=== PATIENT | male | born 1965 | race Caucasian/White ===

== ENCOUNTER → 2016-03-14 | Outpatient (CLI) | payer OTHER ==
[~2016-03-14] MED LIST: ASPI81TA85 PO; CLIN300C2 PO; GEMF600T PO; INSUHUMDS SC; INSULANT SC; LOSA100T36 PO; METF1000 PO; METO50TA2 PO; OMEP20CA3 PO; PERC5TAB6 PO; SIMV40TA2 PO; XALA0.002 OU
[2016-03-14 13:55] LABS: BASO % 0.8 % (0.0-1.0); EOS # 0.3 K/mm3 (0.0-0.50); EOS % 6.5 % (0.0-3.0); LARGE UNSTAINED CELL # 0.2 K/mm3 (0.0-0.4); LARGE UNSTAINED CELL % 4.6 % (0.0-4.0); LYMPH # 1.2 K/mm3 (1.5-4.5); LYMPH % 29.6 % (24.0-44.0); MEAN CORPUSCULAR HEMOGLOBIN 30.7 pg (27.0-33.0); MEAN CORPUSCULAR VOLUME 90.4 fl (80.0-96.0); MONO # 0.5 K/mm3 (0.0-0.8); MONO % 12.7 % (0.0-5.0); NEUTROPHILS # 1.9 K/mm3 (1.8-7.7); NEUTROPHILS % 45.8 % (36.0-66.0); PLATELET COUNT, AUTOMATED 306 k/mm3 (150-450); RED CELL DISTRIBUTION WIDTH 13.1 % (11.5-14.5); WHITE BLOOD COUNT 4.1 K/mm3 (4.0-10.0)
[2016-03-14 14:29] LABS: ALBUMIN 3.6 GM/DL (3.2-5.2); ALT/SGPT 21 U/L (12-78); BLOOD UREA NITROGEN 19 MG/DL (7-18); GLOMERULAR FILTRATION RATE > 60.0 (>56)
== END ==
LOC: M LAB 12:38
PROVIDERS: ATTEND Internal Medicine Rheumatology
DX: Z79.899 Other long term (current) drug therapy (principal); N18.3 Chronic kidney disease, stage 3 (moderate); M05.79 Rheumatoid arthritis with rheumatoid factor of multiple sites without organ or systems involvement

== ENCOUNTER → 2016-04-04 | Outpatient (CLI) | payer OTHER ==
--- NOTE | 2016-04-05 01:54 | REP ---
Clinical: Chest pain. Technique: PA and lateral. Comparison: 02/13/2016. Findings: Subtle bibasilar atelectasis and possible small right pleural reaction cannot be excluded. Correlation is recommended. Mediastinum and cardiac silhouette are within normal limits and stable. No pneumothorax. Skeletal structures intact. Impression: Cannot exclude subtle bibasilar atelectasis and small right pleural reaction. Signed by Jeison Rose MD 04/05/2016 01:46 A
== END ==
LOC: M RAD 10:44
PROVIDERS: ATTEND Internal Medicine Rheumatology
DX: R07.9 Chest pain, unspecified (principal)

== ENCOUNTER → 2016-04-18 | Outpatient (CLI) | payer OTHER ==
--- NOTE | 2016-04-18 07:47 | REP ---
Clinical: Chest pain. History of chronic obstructive pulmonary disease. Comparison: 04/04/2016. Findings: The mediastinum and cardiac silhouette are within normal limits and stable. Lung quintanilla demonstrate chronic stable changes without acute consolidation, effusion, or pneumothorax. Skeletal structures intact. Impression: Chronic stable changes. If the patient remains symptomatic consider chest CT for further investigation. Signed by Jeison Rose MD 04/18/2016 07:38 A
== END ==
LOC: M RAD 06:58
PROVIDERS: ATTEND Physician Assistant Medical
DX: J44.9 Chronic obstructive pulmonary disease, unspecified (principal)

== ENCOUNTER → 2016-04-18 | Outpatient (CLI) | payer OTHER ==
[2016-04-18 07:43] LABS: BASO % 0.7 % (0.0-1.0); EOS # 0.3 K/mm3 (0.0-0.50); EOS % 7.7 % (0.0-3.0); LARGE UNSTAINED CELL # 0.2 K/mm3 (0.0-0.4); LARGE UNSTAINED CELL % 4.4 % (0.0-4.0); LYMPH # 1.4 K/mm3 (1.5-4.5); LYMPH % 33.7 % (24.0-44.0); MEAN CORPUSCULAR HEMOGLOBIN 31.1 pg (27.0-33.0); MEAN CORPUSCULAR HGB CONC 34.4 g/dl (32.0-36.5); MEAN CORPUSCULAR VOLUME 90.6 fl (80.0-96.0); MONO # 0.5 K/mm3 (0.0-0.8); MONO % 11.2 % (0.0-5.0); NEUTROPHILS # 1.7 K/mm3 (1.8-7.7); NEUTROPHILS % 42.2 % (36.0-66.0); PLATELET COUNT, AUTOMATED 266 k/mm3 (150-450); RED CELL DISTRIBUTION WIDTH 12.9 % (11.5-14.5); WHITE BLOOD COUNT 4.1 K/mm3 (4.0-10.0)
[2016-04-18 08:15] LABS: ALBUMIN 3.5 GM/DL (3.2-5.2); ALT/SGPT 22 U/L (12-78); BLOOD UREA NITROGEN 25 MG/DL (7-18); CREATININE FOR GFR 1.35 MG/DL (0.70-1.30); GLOMERULAR FILTRATION RATE 59.1 (>56)
[2016-04-18 08:39] LABS: ERYTHROCYTE SEDIMENTATION RATE 12 mm/hr (0-20)
== END ==
LOC: M LAB 06:53
PROVIDERS: ATTEND Internal Medicine Rheumatology
DX: Z79.899 Other long term (current) drug therapy (principal); M05.79 Rheumatoid arthritis with rheumatoid factor of multiple sites without organ or systems involvement

== ENCOUNTER → 2016-05-15 | Outpatient (CLI) | payer OTHER ==
[2016-05-15 14:56] LABS: BASO % 0.7 % (0.0-1.0); EOS # 0.2 K/mm3 (0.0-0.50); EOS % 5.1 % (0.0-3.0); LARGE UNSTAINED CELL # 0.1 K/mm3 (0.0-0.4); LARGE UNSTAINED CELL % 2.2 % (0.0-4.0); LYMPH # 1.4 K/mm3 (1.5-4.5); LYMPH % 36.3 % (24.0-44.0); MEAN CORPUSCULAR HGB CONC 35.1 g/dl (32.0-36.5); MEAN CORPUSCULAR VOLUME 91.3 fl (80.0-96.0); MONO # 0.4 K/mm3 (0.0-0.8); MONO % 11.9 % (0.0-5.0); NEUTROPHILS # 1.6 K/mm3 (1.8-7.7); NEUTROPHILS % 43.9 % (36.0-66.0); PLATELET COUNT, AUTOMATED 237 k/mm3 (150-450); RED CELL DISTRIBUTION WIDTH 13.1 % (11.5-14.5); WHITE BLOOD COUNT 3.7 K/mm3 (4.0-10.0)
[2016-05-15 15:13] LABS: ALBUMIN 3.8 GM/DL (3.2-5.2); ALT/SGPT 25 U/L (12-78); BLOOD UREA NITROGEN 23 MG/DL (7-18); GLOMERULAR FILTRATION RATE 52.3 (>56)
[2016-05-15 15:16] LABS: ERYTHROCYTE SEDIMENTATION RATE 11 mm/hr (0-20)
== END ==
LOC: M LAB 14:27
PROVIDERS: ATTEND Internal Medicine Rheumatology
DX: N18.3 Chronic kidney disease, stage 3 (moderate) (principal)

== ENCOUNTER → 2016-06-21 | Outpatient (CLI) | payer OTHER ==
[2016-06-21 07:44] LABS: BASO % 0.6 % (0.0-1.0); EOS # 0.2 K/mm3 (0.0-0.50); EOS % 5.4 % (0.0-3.0); LYMPH # 1.1 K/mm3 (1.5-4.5); LYMPH % 32.8 % (24.0-44.0); MEAN CORPUSCULAR HEMOGLOBIN 31.1 pg (27.0-33.0); MEAN CORPUSCULAR HGB CONC 34.5 g/dl (32.0-36.5); MONO # 0.4 K/mm3 (0.0-0.8); MONO % 11.7 % (0.0-5.0); NEUTROPHILS # 1.6 K/mm3 (1.8-7.7); NEUTROPHILS % 46.5 % (36.0-66.0); RED CELL DISTRIBUTION WIDTH 13.3 % (11.5-14.5); WHITE BLOOD COUNT 3.4 K/mm3 (4.0-10.0)
[2016-06-21 08:19] LABS: ALBUMIN 3.4 GM/DL (3.2-5.2); ALBUMIN/GLOBULIN RATIO 1.21 (1.00-1.93); ALKALINE PHOSPHATASE 65 U/L (45-117); ALT/SGPT 22 U/L (12-78); ANION GAP 7 MEQ/L (8-16); AST/SGOT 19 U/L (15-37); BILIRUBIN,TOTAL 0.5 MG/DL (0.2-1.0); BLOOD UREA NITROGEN 20 MG/DL (7-18); CALCIUM LEVEL 8.8 MG/DL (8.5-10.1); CARBON DIOXIDE LEVEL 27 MEQ/L (21-32); CHLORIDE LEVEL 105 MEQ/L (98-107); CHOLESTEROL LEVEL 157 MG/DL (<200); CREATININE FOR GFR 1.32 MG/DL (0.70-1.30); GLOMERULAR FILTRATION RATE > 60.0 (>56); GLUCOSE, FASTING 277 MG/DL (70-105); POTASSIUM SERUM 4.3 MEQ/L (3.5-5.1); SODIUM LEVEL 139 MEQ/L (136-145); TOTAL PROTEIN 6.2 GM/DL (6.4-8.2); TRIGLYCERIDES LEVEL 104 MG/DL (<150)
== END ==
LOC: M LAB 06:57
PROVIDERS: ATTEND Physician Assistant Medical
DX: N18.3 Chronic kidney disease, stage 3 (moderate) (principal); E08.40 Diabetes mellitus due to underlying condition with diabetic neuropathy, unspecified

== ENCOUNTER → 2016-06-21 | Outpatient (CLI) | payer OTHER ==
[2016-06-21 07:32] LABS: BASO % 0.9 % (0.0-1.0); EOS # 0.2 K/mm3 (0.0-0.50); EOS % 6.4 % (0.0-3.0); LARGE UNSTAINED CELL # 0.1 K/mm3 (0.0-0.4); LARGE UNSTAINED CELL % 2.5 % (0.0-4.0); LYMPH # 1.3 K/mm3 (1.5-4.5); LYMPH % 33.9 % (24.0-44.0); MEAN CORPUSCULAR HEMOGLOBIN 31.5 pg (27.0-33.0); MEAN CORPUSCULAR HGB CONC 34.9 g/dl (32.0-36.5); MEAN CORPUSCULAR VOLUME 90.3 fl (80.0-96.0); MONO # 0.4 K/mm3 (0.0-0.8); MONO % 10.3 % (0.0-5.0); NEUTROPHILS # 1.7 K/mm3 (1.8-7.7); PLATELET COUNT, AUTOMATED 225 k/mm3 (150-450); RED CELL DISTRIBUTION WIDTH 13.4 % (11.5-14.5); WHITE BLOOD COUNT 3.6 K/mm3 (4.0-10.0)
[2016-06-21 08:10] LABS: ALBUMIN 3.4 GM/DL (3.2-5.2); ALT/SGPT 20 U/L (12-78); BLOOD UREA NITROGEN 20 MG/DL (7-18); CREATININE FOR GFR 1.29 MG/DL (0.70-1.30); GLOMERULAR FILTRATION RATE > 60.0 (>56)
== END ==
LOC: M LAB 07:03
PROVIDERS: ATTEND Internal Medicine Rheumatology
DX: M05.79 Rheumatoid arthritis with rheumatoid factor of multiple sites without organ or systems involvement (principal); Z51.81 Encounter for therapeutic drug level monitoring; Z79.899 Other long term (current) drug therapy

== ENCOUNTER → 2016-07-17 | Outpatient (CLI) | payer OTHER ==
[2016-07-17 13:30] LABS: BASO % 0.7 % (0.0-1.0); EOS # 0.2 K/mm3 (0.0-0.50); EOS % 4.3 % (0.0-3.0); LARGE UNSTAINED CELL # 0.2 K/mm3 (0.0-0.4); LARGE UNSTAINED CELL % 3.8 % (0.0-4.0); LYMPH # 1.3 K/mm3 (1.5-4.5); LYMPH % 28.2 % (24.0-44.0); MEAN CORPUSCULAR HEMOGLOBIN 32.5 pg (27.0-33.0); MEAN CORPUSCULAR HGB CONC 34.8 g/dl (32.0-36.5); MEAN CORPUSCULAR VOLUME 93.4 fl (80.0-96.0); MONO # 0.5 K/mm3 (0.0-0.8); MONO % 11.3 % (0.0-5.0); NEUTROPHILS # 2.5 K/mm3 (1.8-7.7); NEUTROPHILS % 51.8 % (36.0-66.0); PLATELET COUNT, AUTOMATED 255 k/mm3 (150-450); RED CELL DISTRIBUTION WIDTH 13.6 % (11.5-14.5); WHITE BLOOD COUNT 4.8 K/mm3 (4.0-10.0)
[2016-07-17 13:50] LABS: ALBUMIN 3.6 GM/DL (3.2-5.2); CREATININE FOR GFR 1.4 MG/DL (0.70-1.30); GLOMERULAR FILTRATION RATE 56.7 (>56)
== END ==
LOC: M LAB 12:16
PROVIDERS: ATTEND Internal Medicine Rheumatology
DX: Z79.899 Other long term (current) drug therapy (principal); M05.79 Rheumatoid arthritis with rheumatoid factor of multiple sites without organ or systems involvement

== ENCOUNTER → 2016-07-17 | Outpatient (CLI) | payer OTHER | LOC: M LAB 12:21 | PROVIDERS: ATTEND Physician Assistant Medical | DX: M06.9 Rheumatoid arthritis, unspecified (principal) ==

== ENCOUNTER → 2016-09-11 | Outpatient (CLI) | payer OTHER ==
[~2016-09-11] MED LIST changes: -METF1000 PO; +METF10004 PO; -METO50TA2 PO; +METO50TA7 PO; +PERC5TAB12 PO; -PERC5TAB6 PO; -XALA0.002 OU; +XALA0.007 OU
[2016-09-11 13:20] LABS: ALBUMIN 3.7 GM/DL (3.2-5.2); CREATININE FOR GFR 1.71 MG/DL (0.70-1.30); MAGNESIUM LEVEL 2.2 MG/DL (1.8-2.4); POTASSIUM SERUM 4.9 MEQ/L (3.5-5.1); URIC ACID 5.3 MG/DL (3.5-7.2)
[2016-09-11 13:25] LABS: BASO % 0.7 % (0.0-1.0); EOS # 0.2 K/mm3 (0.0-0.50); EOS % 3.7 % (0.0-3.0); LARGE UNSTAINED CELL # 0.1 K/mm3 (0.0-0.4); LARGE UNSTAINED CELL % 1.8 % (0.0-4.0); LYMPH % 16.1 % (24.0-44.0); MEAN CORPUSCULAR HEMOGLOBIN 32.4 pg (27.0-33.0); MEAN CORPUSCULAR HGB CONC 33.9 g/dl (32.0-36.5); MEAN CORPUSCULAR VOLUME 95.4 fl (80.0-96.0); MONO # 0.6 K/mm3 (0.0-0.8); MONO % 10.2 % (0.0-5.0); NEUTROPHILS # 3.8 K/mm3 (1.8-7.7); NEUTROPHILS % 67.5 % (36.0-66.0); PLATELET COUNT, AUTOMATED 240 k/mm3 (150-450); RED CELL DISTRIBUTION WIDTH 13.7 % (11.5-14.5); WHITE BLOOD COUNT 5.6 K/mm3 (4.0-10.0)
== END ==
LOC: M LAB 12:15
PROVIDERS: ATTEND Internal Medicine Nephrology
DX: N17.9 Acute kidney failure, unspecified (principal)

== ENCOUNTER → 2016-09-11 | Outpatient (CLI) | payer OTHER ==
[2016-09-11 13:19] LABS: ALBUMIN 3.7 GM/DL (3.2-5.2); CREATININE FOR GFR 1.65 MG/DL (0.70-1.30); GLOMERULAR FILTRATION RATE 46.9 (>56)
[2016-09-11 13:26] LABS: BASO % 0.4 % (0.0-1.0); EOS # 0.2 K/mm3 (0.0-0.50); EOS % 4.3 % (0.0-3.0); LARGE UNSTAINED CELL # 0.1 K/mm3 (0.0-0.4); LARGE UNSTAINED CELL % 1.8 % (0.0-4.0); LYMPH # 0.9 K/mm3 (1.5-4.5); MEAN CORPUSCULAR HEMOGLOBIN 32.4 pg (27.0-33.0); MEAN CORPUSCULAR VOLUME 95.5 fl (80.0-96.0); MONO # 0.5 K/mm3 (0.0-0.8); MONO % 9.8 % (0.0-5.0); NEUTROPHILS # 3.7 K/mm3 (1.8-7.7); NEUTROPHILS % 68.8 % (36.0-66.0); PLATELET COUNT, AUTOMATED 240 k/mm3 (150-450); RED CELL DISTRIBUTION WIDTH 13.8 % (11.5-14.5); WHITE BLOOD COUNT 5.4 K/mm3 (4.0-10.0)
== END ==
LOC: M LAB 12:18
PROVIDERS: ATTEND Internal Medicine Rheumatology
DX: M05.79 Rheumatoid arthritis with rheumatoid factor of multiple sites without organ or systems involvement (principal); Z79.899 Other long term (current) drug therapy

== ENCOUNTER → 2016-09-19 | Outpatient (CLI) | payer OTHER ==
[2016-09-19 11:11] LABS: BASO % 0.6 % (0.0-1.0); EOS # 0.2 K/mm3 (0.0-0.50); EOS % 5.3 % (0.0-3.0); LYMPH # 1.2 K/mm3 (1.5-4.5); LYMPH % 26.8 % (24.0-44.0); MEAN CORPUSCULAR HEMOGLOBIN 32.5 pg (27.0-33.0); MEAN CORPUSCULAR HGB CONC 34.7 g/dl (32.0-36.5); MEAN CORPUSCULAR VOLUME 93.6 fl (80.0-96.0); MONO # 0.4 K/mm3 (0.0-0.8); MONO % 11.3 % (0.0-5.0); NEUTROPHILS # 2.1 K/mm3 (1.8-7.7); NEUTROPHILS % 52.7 % (36.0-66.0); RED CELL DISTRIBUTION WIDTH 13.6 % (11.5-14.5); WHITE BLOOD COUNT 3.9 K/mm3 (4.0-10.0)
[2016-09-19 11:18] LABS: INR 1.02
[2016-09-19 11:51] LABS: ALBUMIN 3.5 GM/DL (3.2-5.2); ALBUMIN/GLOBULIN RATIO 1.17 (1.00-1.93); BILIRUBIN,TOTAL 0.8 MG/DL (0.2-1.0); CALCIUM LEVEL 9.2 MG/DL (8.5-10.1); CREATININE FOR GFR 1.44 MG/DL (0.70-1.30); GLOMERULAR FILTRATION RATE 54.6 (>56); POTASSIUM SERUM 4.2 MEQ/L (3.5-5.1); TOTAL PROTEIN 6.5 GM/DL (6.4-8.2)
== END ==
LOC: M LAB 10:32
PROVIDERS: ATTEND Physician Assistant Medical
DX: E11.49 Type 2 diabetes mellitus with other diabetic neurological complication (principal)

== ENCOUNTER → 2016-09-19 | Outpatient (CLI) | payer OTHER ==
--- NOTE | 2016-09-20 15:11 | ECGEPIP ---
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 No significant change compared with 02/22/2014. Electronically Signed On 09-20-2016 15:11:06 EDT by Wilfrid Hussein
== END ==
LOC: M EKG 10:29
PROVIDERS: ATTEND Orthopaedic Surgery
DX: I10 Essential (primary) hypertension (principal)

== ENCOUNTER → 2016-10-31 | Outpatient (CLI) | payer OTHER ==
[2016-10-31 08:46] LABS: EOS # 0.2 K/mm3 (0.0-0.50); EOS % 5.5 % (0.0-3.0); LARGE UNSTAINED CELL # 0.1 K/mm3 (0.0-0.4); LARGE UNSTAINED CELL % 3.2 % (0.0-4.0); LYMPH # 1.6 K/mm3 (1.5-4.5); LYMPH % 32.7 % (24.0-44.0); MEAN CORPUSCULAR HEMOGLOBIN 32.2 pg (27.0-33.0); MEAN CORPUSCULAR HGB CONC 33.6 g/dl (32.0-36.5); MEAN CORPUSCULAR VOLUME 95.9 fl (80.0-96.0); MONO # 0.5 K/mm3 (0.0-0.8); MONO % 10.6 % (0.0-5.0); NEUTROPHILS # 2.1 K/mm3 (1.8-7.7); NEUTROPHILS % 46.9 % (36.0-66.0); PLATELET COUNT, AUTOMATED 233 k/mm3 (150-450); RED CELL DISTRIBUTION WIDTH 13.2 % (11.5-14.5); WHITE BLOOD COUNT 4.4 K/mm3 (4.0-10.0)
[2016-10-31 09:19] LABS: ALBUMIN 3.5 GM/DL (3.2-5.2); CREATININE FOR GFR 1.35 MG/DL (0.70-1.30); GLOMERULAR FILTRATION RATE 58.9 (>56)
== END ==
LOC: M LAB 08:09
PROVIDERS: ATTEND Internal Medicine Rheumatology
DX: N18.3 Chronic kidney disease, stage 3 (moderate) (principal); M05.79 Rheumatoid arthritis with rheumatoid factor of multiple sites without organ or systems involvement; Z79.899 Other long term (current) drug therapy

== ENCOUNTER → 2016-11-21 | Outpatient (CLI) | payer OTHER ==
[2016-11-21 08:40] LABS: BASO % 0.7 % (0.0-1.0); EOS # 0.2 K/mm3 (0.0-0.50); EOS % 5.8 % (0.0-3.0); LARGE UNSTAINED CELL # 0.1 K/mm3 (0.0-0.4); LARGE UNSTAINED CELL % 2.4 % (0.0-4.0); LYMPH # 1.2 K/mm3 (1.5-4.5); LYMPH % 30.3 % (24.0-44.0); MEAN CORPUSCULAR HEMOGLOBIN 32.2 pg (27.0-33.0); MEAN CORPUSCULAR HGB CONC 33.6 g/dl (32.0-36.5); MEAN CORPUSCULAR VOLUME 95.8 fl (80.0-96.0); MONO # 0.4 K/mm3 (0.0-0.8); MONO % 11.2 % (0.0-5.0); NEUTROPHILS # 1.8 K/mm3 (1.8-7.7); NEUTROPHILS % 49.5 % (36.0-66.0); PLATELET COUNT, AUTOMATED 242 k/mm3 (150-450); RED CELL DISTRIBUTION WIDTH 13.9 % (11.5-14.5); WHITE BLOOD COUNT 3.7 K/mm3 (4.0-10.0)
[2016-11-21 08:54] LABS: ALBUMIN 3.5 GM/DL (3.2-5.2); ALT/SGPT 32 U/L (12-78); BLOOD UREA NITROGEN 14 MG/DL (7-18); CREATININE FOR GFR 1.25 MG/DL (0.70-1.30); GLOMERULAR FILTRATION RATE > 60.0 (>56)
== END ==
LOC: M LAB 07:57
PROVIDERS: ATTEND Internal Medicine Rheumatology
DX: N18.3 Chronic kidney disease, stage 3 (moderate) (principal); M05.19 Rheumatoid lung disease with rheumatoid arthritis of multiple sites; Z79.899 Other long term (current) drug therapy

== ENCOUNTER → 2017-01-17 | Outpatient (CLI) | payer OTHER ==
[2017-01-17 10:41] LABS: BASO % 0.6 % (0.0-1.0); EOS # 0.2 10^3/uL (0.0-0.50); EOS % 4.4 % (0.0-3.0); IMMATURE GRANULOCYTE % 0.2 % (0-0); LYMPH # 1.4 10^3/uL (1.5-4.5); LYMPH % 29.7 % (24.0-44.0); MEAN CORPUSCULAR HEMOGLOBIN 31.9 pg (27.0-33.0); MEAN CORPUSCULAR VOLUME 93.8 fl (80.0-96.0); MONO # 0.9 10^3/uL (0.0-0.8); MONO % 19.5 % (0.0-5.0); NEUTROPHILS # 2.2 10^3/uL (1.8-7.7); NEUTROPHILS % 45.6 % (36.0-66.0); PLATELET COUNT, AUTOMATED 285 10^3/uL (150-450); RED CELL DISTRIBUTION WIDTH 13.3 % (11.5-14.5); WHITE BLOOD COUNT 4.8 10^3/uL (4.0-10.0)
[2017-01-17 10:57] LABS: ALBUMIN 3.8 GM/DL (3.2-5.2); CREATININE FOR GFR 1.48 MG/DL (0.70-1.30); GLOMERULAR FILTRATION RATE 52.9 (>56)
== END ==
LOC: M LAB 09:40
PROVIDERS: ATTEND Internal Medicine Rheumatology
DX: Z51.81 Encounter for therapeutic drug level monitoring (principal); Z79.899 Other long term (current) drug therapy

== ENCOUNTER → 2017-01-17 | Outpatient (CLI) | payer OTHER ==
[2017-01-17 10:41] LABS: BASO % 0.6 % (0.0-1.0); EOS # 0.2 10^3/uL (0.0-0.50); EOS % 4.3 % (0.0-3.0); IMMATURE GRANULOCYTE % 0.2 % (0-0); LYMPH # 1.5 10^3/uL (1.5-4.5); LYMPH % 31.6 % (24.0-44.0); MEAN CORPUSCULAR HEMOGLOBIN 31.4 pg (27.0-33.0); MEAN CORPUSCULAR HGB CONC 33.4 g/dl (32.0-36.5); MEAN CORPUSCULAR VOLUME 93.9 fl (80.0-96.0); MONO # 0.9 10^3/uL (0.0-0.8); MONO % 18.6 % (0.0-5.0); NEUTROPHILS # 2.1 10^3/uL (1.8-7.7); NEUTROPHILS % 44.7 % (36.0-66.0); PLATELET COUNT, AUTOMATED 285 10^3/uL (150-450); RED CELL DISTRIBUTION WIDTH 13.2 % (11.5-14.5); WHITE BLOOD COUNT 4.7 10^3/uL (4.0-10.0)
[2017-01-17 19:37] LABS: ALBUMIN 3.8 GM/DL (3.2-5.2); ALBUMIN/GLOBULIN RATIO 1.27 (1.00-1.93); BILIRUBIN,TOTAL 0.6 MG/DL (0.2-1.0); CREATININE FOR GFR 1.48 MG/DL (0.70-1.30); GLOMERULAR FILTRATION RATE 52.9 (>56); POTASSIUM SERUM 4.1 MEQ/L (3.5-5.1); TOTAL PROTEIN 6.8 GM/DL (6.4-8.2)
== END ==
LOC: M LAB 09:43
PROVIDERS: ATTEND Physician Assistant Medical
DX: N18.3 Chronic kidney disease, stage 3 (moderate) (principal); E08.40 Diabetes mellitus due to underlying condition with diabetic neuropathy, unspecified

== ENCOUNTER → 2017-02-05 | Outpatient (CLI) | payer OTHER ==
[2017-02-05 11:40] LABS: BASO % 0.6 % (0.0-1.0); EOS # 0.2 10^3/uL (0.0-0.50); EOS % 4.1 % (0.0-3.0); IMMATURE GRANULOCYTE % 0.2 % (0-0); LYMPH % 17.7 % (24.0-44.0); MEAN CORPUSCULAR HEMOGLOBIN 31.6 pg (27.0-33.0); MEAN CORPUSCULAR HGB CONC 33.9 g/dl (32.0-36.5); MEAN CORPUSCULAR VOLUME 93.2 fl (80.0-96.0); MONO # 1.3 10^3/uL (0.0-0.8); MONO % 23.3 % (0.0-5.0); NEUTROPHILS # 2.9 10^3/uL (1.8-7.7); NEUTROPHILS % 54.1 % (36.0-66.0); PLATELET COUNT, AUTOMATED 204 10^3/uL (150-450); RED CELL DISTRIBUTION WIDTH 12.8 % (11.5-14.5); WHITE BLOOD COUNT 5.4 10^3/uL (4.0-10.0)
[2017-02-05 12:25] LABS: ALBUMIN 3.2 GM/DL (3.2-5.2); CREATININE FOR GFR 1.44 MG/DL (0.70-1.30); GLOMERULAR FILTRATION RATE 54.6 (>56)
== END ==
LOC: M LAB 11:09
PROVIDERS: ATTEND Internal Medicine Rheumatology
DX: M05.79 Rheumatoid arthritis with rheumatoid factor of multiple sites without organ or systems involvement (principal); Z79.899 Other long term (current) drug therapy

== ENCOUNTER → 2017-03-18 | Outpatient (CLI) | payer OTHER ==
[2017-03-18 12:06] LABS: BASO % 0.8 % (0.0-1.0); EOS # 0.2 10^3/uL (0.0-0.50); EOS % 4.1 % (0.0-3.0); HEMATOCRIT 39.3 % (42.0-52.0); HEMOGLOBIN 13.5 g/dl (14.0-18.0); IMMATURE GRANULOCYTE % 0.2 % (0-0); LYMPH # 1.1 10^3/uL (1.5-4.5); LYMPH % 20.8 % (24.0-44.0); MEAN CORPUSCULAR HEMOGLOBIN 31.8 pg (27.0-33.0); MEAN CORPUSCULAR HGB CONC 34.4 g/dl (32.0-36.5); MEAN CORPUSCULAR VOLUME 92.7 fl (80.0-96.0); MONO # 0.7 10^3/uL (0.0-0.8); MONO % 12.8 % (0.0-5.0); NEUTROPHILS # 3.3 10^3/uL (1.8-7.7); NEUTROPHILS % 61.3 % (36.0-66.0); PLATELET COUNT, AUTOMATED 249 10^3/uL (150-450); RED BLOOD COUNT 4.24 10^6/uL (4.30-6.10); RED CELL DISTRIBUTION WIDTH 13.2 % (11.5-14.5); WHITE BLOOD COUNT 5.3 10^3/uL (4.0-10.0)
[2017-03-18 12:40] LABS: ALBUMIN 3.7 GM/DL (3.2-5.2); ALT/SGPT 20 U/L (12-78); CREATININE FOR GFR 1.33 MG/DL (0.70-1.30); GLOMERULAR FILTRATION RATE 59.9 (>56)
[2017-03-18 12:40] LABS: BLOOD UREA NITROGEN 21 MG/DL (7-18)
== END ==
LOC: M LAB 11:21
DX: M05.79 Rheumatoid arthritis with rheumatoid factor of multiple sites without organ or systems involvement (principal); Z79.899 Other long term (current) drug therapy
CPT/HCPCS: 84460

== ENCOUNTER → 2017-04-16 | Outpatient (CLI) | payer OTHER ==
[2017-04-16 11:13] LABS: BASO % 0.7 % (0.0-1.0); EOS # 0.2 10^3/uL (0.0-0.50); EOS % 4.1 % (0.0-3.0); HEMOGLOBIN 13.9 g/dl (14.0-18.0); IMMATURE GRANULOCYTE % 0.2 % (0-0); LYMPH # 1.2 10^3/uL (1.5-4.5); LYMPH % 26.6 % (24.0-44.0); MEAN CORPUSCULAR HEMOGLOBIN 31.7 pg (27.0-33.0); MEAN CORPUSCULAR HGB CONC 33.9 g/dl (32.0-36.5); MEAN CORPUSCULAR VOLUME 93.4 fl (80.0-96.0); MONO # 0.8 10^3/uL (0.0-0.8); MONO % 18.1 % (0.0-5.0); NEUTROPHILS # 2.2 10^3/uL (1.8-7.7); NEUTROPHILS % 50.3 % (36.0-66.0); PLATELET COUNT, AUTOMATED 250 10^3/uL (150-450); RED BLOOD COUNT 4.39 10^6/uL (4.30-6.10); RED CELL DISTRIBUTION WIDTH 13.5 % (11.5-14.5); WHITE BLOOD COUNT 4.4 10^3/uL (4.0-10.0)
[2017-04-16 11:43] LABS: ALBUMIN 3.6 GM/DL (3.2-5.2); ALT/SGPT 22 U/L (12-78); CREATININE FOR GFR 1.47 MG/DL (0.70-1.30); GLOMERULAR FILTRATION RATE 53.3 (>56)
[2017-04-16 11:43] LABS: BLOOD UREA NITROGEN 23 MG/DL (7-18)
== END ==
LOC: M LAB 10:30
DX: M05.79 Rheumatoid arthritis with rheumatoid factor of multiple sites without organ or systems involvement (principal); Z79.899 Other long term (current) drug therapy
CPT/HCPCS: 84460

== ENCOUNTER → 2017-07-11 | Outpatient (REF) | payer OTHER | LOC: M LAB REF 12:10 | DX: L72.3 Sebaceous cyst (principal) ==

== ENCOUNTER → 2017-09-03 | Outpatient (REF) | payer OTHER ==
[2017-09-03 13:05] LABS: ALBUMIN 3.9 GM/DL (3.2-5.2); ALBUMIN/GLOBULIN RATIO 1.22 (1.00-1.93); ALKALINE PHOSPHATASE 64 U/L (45-117); ALT/SGPT 22 U/L (12-78); ANION GAP 6 MEQ/L (8-16); AST/SGOT 26 U/L (7-37); BILIRUBIN,TOTAL 0.7 MG/DL (0.2-1.0); BLOOD UREA NITROGEN 30 MG/DL (7-18); CALCIUM LEVEL 8.9 MG/DL (8.5-10.1); CARBON DIOXIDE LEVEL 27 MEQ/L (21-32); CHLORIDE LEVEL 109 MEQ/L (98-107); CHOLESTEROL LEVEL 147 MG/DL (<200); CHOLESTEROL RISK RATIO 2.672 (<5); CREATININE FOR GFR 1.39 MG/DL (0.70-1.30); GLOMERULAR FILTRATION RATE 56.9 (>56); GLUCOSE, FASTING 75 MG/DL (70-100); HDL CHOLESTEROL 55 MG/DL (>40); NON-HDL-C 92 MG/DL; SODIUM LEVEL 142 MEQ/L (136-145); TOTAL PROTEIN 7.1 GM/DL (6.4-8.2); TRIGLYCERIDES LEVEL 95 MG/DL (<150)
== END ==
LOC: M LAB REF 11:49
DX: E11.9 Type 2 diabetes mellitus without complications (principal)

== ENCOUNTER → 2017-09-17 | Outpatient (REF) | payer OTHER ==
[2017-09-17 19:19] LABS: ESTIMATED AVERAGE GLUCOSE 157 MG/DL (60-110); HEMOGLOBIN A1c 7.1 %
== END ==
LOC: M LAB REF 17:29
DX: E11.9 Type 2 diabetes mellitus without complications (principal)
CPT/HCPCS: 83036

== ENCOUNTER → 2017-10-24 | Outpatient (REF) | payer OTHER ==
[2017-10-26 14:16] LABS: C-PEPTIDE < 0.1 ng/mL (1.1-4.4)
[2017-10-30 14:25] LABS: GAD-65 AUTOANTIBODY 25.1 U/mL (0.0-5.0)
== END ==
LOC: M LABDRAW1 13:48
DX: E11.22 Type 2 diabetes mellitus with diabetic chronic kidney disease (principal)
CPT/HCPCS: 84681

== ENCOUNTER → 2018-04-02 | Outpatient (CLI) | payer OTHER ==
[~2018-04-02] MED LIST changes: -GEMF600T PO; +GEMF600T5 PO; -LOSA100T36 PO; +LOSA100T50 PO
[2018-04-02 16:14] LABS: BASO % 0.7 % (0.0-1.0); EOS # 0.3 10^3/uL (0.0-0.50); EOS % 5.5 % (0.0-3.0); HEMOGLOBIN 14.2 g/dl (13.5-17.5); LYMPH # 1.4 10^3/uL (1.5-4.5); LYMPH % 31.4 % (24.0-44.0); MEAN CORPUSCULAR HEMOGLOBIN 31.4 pg (27.0-33.0); MEAN CORPUSCULAR HGB CONC 33.8 g/dl (32.0-36.5); MEAN CORPUSCULAR VOLUME 92.9 fl (80.0-96.0); MONO # 0.8 10^3/uL (0.0-0.8); MONO % 17.6 % (0.0-5.0); NEUTROPHILS % 44.6 % (36.0-66.0); PLATELET COUNT, AUTOMATED 241 10^3/uL (150-450); RED BLOOD COUNT 4.52 10^6/uL (4.30-6.10); WHITE BLOOD COUNT 4.6 10^3/uL (4.0-10.0)
[2018-04-02 16:34] LABS: ALBUMIN 3.6 GM/DL (3.2-5.2); ALT/SGPT 29 U/L (12-78); BILIRUBIN,TOTAL 0.5 MG/DL (0.2-1.0); BLOOD UREA NITROGEN 14 MG/DL (7-18); C REACTIVE PROTEIN QUANTITATIV < 0.30 MG/DL (0.00-0.30); CALCIUM LEVEL 8.8 MG/DL (8.5-10.1); CARBON DIOXIDE LEVEL 29 MEQ/L (21-32); CHLORIDE LEVEL 108 MEQ/L (98-107); CREATININE FOR GFR 1.38 MG/DL (0.70-1.30); GLOMERULAR FILTRATION RATE 57.2 (>56); GLUCOSE, FASTING 159 MG/DL (70-100); POTASSIUM SERUM 4.3 MEQ/L (3.5-5.1); SODIUM LEVEL 140 MEQ/L (136-145); TOTAL PROTEIN 6.4 GM/DL (6.4-8.2)
== END ==
LOC: M LAB 15:29
PROVIDERS: ATTEND Internal Medicine
DX: Z51.81 Encounter for therapeutic drug level monitoring (principal); Z79.899 Other long term (current) drug therapy

== ENCOUNTER → 2018-05-12 | Outpatient (REF) | payer OTHER | LOC: M LAB REF 13:03 | PROVIDERS: ATTEND Internal Medicine Nephrology | DX: N39.0 Urinary tract infection, site not specified (principal) ==

== ENCOUNTER → 2018-07-28 | Outpatient (CLI) | payer OTHER ==
[2018-07-28 09:03] LABS: BASO % 0.7 % (0.0-1.0); EOS # 0.2 10^3/uL (0.0-0.50); EOS % 5.2 % (0.0-3.0); HEMATOCRIT 42.6 % (42.0-52.0); HEMOGLOBIN 14.3 g/dl (13.5-17.5); LYMPH # 1.3 10^3/uL (1.5-4.5); LYMPH % 31.4 % (24.0-44.0); MEAN CORPUSCULAR HEMOGLOBIN 31.9 pg (27.0-33.0); MEAN CORPUSCULAR HGB CONC 33.6 g/dl (32.0-36.5); MEAN CORPUSCULAR VOLUME 95.1 fl (80.0-96.0); MONO # 0.6 10^3/uL (0.0-0.8); MONO % 13.1 % (0.0-5.0); NEUTROPHILS # 2.1 10^3/uL (1.8-7.7); NEUTROPHILS % 49.4 % (36.0-66.0); PLATELET COUNT, AUTOMATED 221 10^3/uL (150-450); RED BLOOD COUNT 4.48 10^6/uL (4.30-6.10); WHITE BLOOD COUNT 4.2 10^3/uL (4.0-10.0)
[2018-07-28 09:06] LABS: ALBUMIN 3.6 GM/DL (3.2-5.2); ALT/SGPT 22 U/L (12-78); BILIRUBIN,TOTAL 0.5 MG/DL (0.2-1.0); BLOOD UREA NITROGEN 25 MG/DL (7-18); C REACTIVE PROTEIN QUANTITATIV < 0.30 MG/DL (0.00-0.30); CALCIUM LEVEL 9.3 MG/DL (8.5-10.1); CARBON DIOXIDE LEVEL 28 MEQ/L (21-32); CHLORIDE LEVEL 107 MEQ/L (98-107); CREATININE FOR GFR 1.48 MG/DL (0.70-1.30); GLOMERULAR FILTRATION RATE 52.7 (>56); GLUCOSE, FASTING 173 MG/DL (70-100); POTASSIUM SERUM 4.3 MEQ/L (3.5-5.1); SODIUM LEVEL 141 MEQ/L (136-145); TOTAL PROTEIN 6.5 GM/DL (6.4-8.2)
== END ==
LOC: M LAB 07:55
PROVIDERS: ATTEND Internal Medicine
DX: Z79.899 Other long term (current) drug therapy (principal)

== ENCOUNTER → 2018-08-11 | Outpatient (CLI) | payer OTHER ==
[2018-08-11 08:13] LABS: BASO % 0.8 % (0.0-1.0); EOS # 0.2 10^3/uL (0.0-0.50); EOS % 5.9 % (0.0-3.0); HEMATOCRIT 41.3 % (42.0-52.0); HEMOGLOBIN 14.2 g/dl (13.5-17.5); LYMPH # 1.6 10^3/uL (1.5-4.5); MEAN CORPUSCULAR HEMOGLOBIN 32.7 pg (27.0-33.0); MEAN CORPUSCULAR HGB CONC 34.4 g/dl (32.0-36.5); MEAN CORPUSCULAR VOLUME 95.2 fl (80.0-96.0); MONO # 0.7 10^3/uL (0.0-0.8); MONO % 18.3 % (0.0-5.0); NEUTROPHILS # 1.3 10^3/uL (1.8-7.7); NEUTROPHILS % 32.7 % (36.0-66.0); PLATELET COUNT, AUTOMATED 197 10^3/uL (150-450); RED BLOOD COUNT 4.34 10^6/uL (4.30-6.10); WHITE BLOOD COUNT 3.9 10^3/uL (4.0-10.0)
== END ==
LOC: M LAB 07:40
PROVIDERS: ATTEND Internal Medicine
DX: M05.742 Rheumatoid arthritis with rheumatoid factor of left hand without organ or systems involvement (principal)

== ENCOUNTER → 2018-09-17 | Outpatient (CLI) | payer OTHER ==
[~2018-09-17] MED LIST changes: -OMEP20CA3 PO; +OMEP20CA4 PO
[2018-09-17 09:30] LABS: BASO % 0.8 % (0.0-1.0); EOS # 0.2 10^3/uL (0.0-0.50); EOS % 5.6 % (0.0-3.0); HEMATOCRIT 40.9 % (42.0-52.0); HEMOGLOBIN 14.1 g/dl (13.5-17.5); LYMPH # 1.4 10^3/uL (1.5-4.5); LYMPH % 36.3 % (24.0-44.0); MEAN CORPUSCULAR HGB CONC 34.5 g/dl (32.0-36.5); MEAN CORPUSCULAR VOLUME 95.8 fl (80.0-96.0); MONO # 0.7 10^3/uL (0.0-0.8); MONO % 18.3 % (0.0-5.0); NEUTROPHILS # 1.5 10^3/uL (1.8-7.7); NEUTROPHILS % 38.7 % (36.0-66.0); PLATELET COUNT, AUTOMATED 228 10^3/uL (150-450); RED BLOOD COUNT 4.27 10^6/uL (4.30-6.10); WHITE BLOOD COUNT 3.9 10^3/uL (4.0-10.0)
== END ==
LOC: M LAB 09:00
PROVIDERS: ATTEND Internal Medicine
DX: Z51.81 Encounter for therapeutic drug level monitoring (principal); Z79.899 Other long term (current) drug therapy

== ENCOUNTER → 2018-10-31 | Outpatient (CLI) | payer OTHER ==
[~2018-10-31] MED LIST changes: +OMEP1CAP73 PO; -OMEP20CA4 PO; -SIMV40TA2 PO; +SIMV40TA20 PO
[2018-10-31 07:40] LABS: ALBUMIN 3.3 GM/DL (3.2-5.2); BILIRUBIN,TOTAL 0.6 MG/DL (0.2-1.0); CALCIUM LEVEL 8.8 MG/DL (8.5-10.1); CHOLESTEROL RISK RATIO 2.245 (<5); CREATININE FOR GFR 1.38 MG/DL (0.70-1.30); TOTAL PROTEIN 6.2 GM/DL (6.4-8.2)
[2018-10-31 07:52] LABS: MAU/CREAT RATIO 61.2 MCG/MG (0.0-30.0)
== END ==
LOC: M LAB 06:52
PROVIDERS: ATTEND Internal Medicine Endocrinology, Diabetes & Metabolism
DX: E10.22 Type 1 diabetes mellitus with diabetic chronic kidney disease (principal)

== ENCOUNTER → 2018-11-24 | Outpatient (CLI) | payer OTHER ==
[~2018-11-24] MED LIST changes: -OMEP1CAP73 PO; +OMEP20CA4 PO; +SIMV40TA2 PO; -SIMV40TA20 PO
[2018-11-24 14:51] LABS: BASO % 0.5 % (0.0-1.0); EOS # 0.2 10^3/uL (0.0-0.5); EOS % 5.8 % (0.0-3.0); HEMOGLOBIN 13.1 g/dl (13.5-17.5); LYMPH # 1.2 10^3/uL (1.5-5.0); LYMPH % 29.3 % (24.0-44.0); MEAN CORPUSCULAR HEMOGLOBIN 31.8 pg (27.0-33.0); MEAN CORPUSCULAR HGB CONC 33.6 g/dl (32.0-36.5); MEAN CORPUSCULAR VOLUME 94.7 fl (80.0-96.0); MONO # 0.8 10^3/uL (0.0-0.8); MONO % 18.5 % (0.0-5.0); NEUTROPHILS # 1.9 10^3/uL (1.5-8.5); NEUTROPHILS % 45.9 % (36.0-66.0); PLATELET COUNT, AUTOMATED 231 10^3/uL (150-450); RED BLOOD COUNT 4.12 10^6/uL (4.30-6.10); WHITE BLOOD COUNT 4.2 10^3/uL (4.0-10.0)
[2018-11-24 15:14] LABS: ALBUMIN 3.7 GM/DL (3.2-5.2); ALT/SGPT 22 U/L (12-78); BILIRUBIN,TOTAL 0.4 MG/DL (0.2-1.0); BLOOD UREA NITROGEN 21 MG/DL (7-18); C REACTIVE PROTEIN QUANTITATIV < 0.30 MG/DL (0.00-0.30); CALCIUM LEVEL 9.1 MG/DL (8.5-10.1); CARBON DIOXIDE LEVEL 27 MEQ/L (21-32); CHLORIDE LEVEL 110 MEQ/L (98-107); CREATININE FOR GFR 1.33 MG/DL (0.70-1.30); GLOMERULAR FILTRATION RATE 59.4 (>56); GLUCOSE, FASTING 201 MG/DL (70-100); POTASSIUM SERUM 4.4 MEQ/L (3.5-5.1); SODIUM LEVEL 142 MEQ/L (136-145); TOTAL PROTEIN 6.3 GM/DL (6.4-8.2)
[2018-11-24 15:38] LABS: ERYTHROCYTE SEDIMENTATION RATE 14 mm/hr (0-20)
--- NOTE | 2018-11-25 03:19 | REP ---
Clinical: Rheumatoid arthritis. Technique: AP, lateral, bilateral oblique views of the right and left hand. Comparison: 05/12/2015 Findings: Left hand demonstrates old healed fractures involving the second and fifth metacarpal bones as well as suspected partial amputations at the tips of the third and fourth distal phalanges which remain stable compared to 2016. Minimal joint space narrowing involving the interphalangeal joints is essentially unchanged and particularly involves the third distal interphalangeal joint. No significant osteophytosis, subchondral cystic changes or periarticular swelling. No obvious calcifications or loose bodies noted. Right hand demonstrates old healed fracture of the fifth metacarpal bone. Subchondral sclerosis and minimal joint space narrowing noted involving the interphalangeal joints as well as the first metacarpophalangeal joint. No significant osteophytosis, subchondral cystic changes, periarticular swelling or loose bodies identified. Evidence for peripheral vascular disease noted. Impression: 1. Relatively stable mild osteoarthritic degenerative changes as compared to 2016. Electronically Signed by Jeison Rose MD 11/25/2018 03:11 A
== END ==
LOC: M LAB 14:07
PROVIDERS: ATTEND Internal Medicine Rheumatology
DX: M05.79 Rheumatoid arthritis with rheumatoid factor of multiple sites without organ or systems involvement (principal)

== ENCOUNTER → 2019-02-19 | Outpatient (REF) | payer OTHER ==
[~2019-02-19] MED LIST changes: +OMEP-172 PO; -OMEP20CA4 PO; -SIMV40TA2 PO; +SIMV40TA20 PO
[2019-02-19 17:22] LABS: ALBUMIN 3.5 GM/DL (3.2-5.2); ALT/SGPT 18 U/L (12-78); BILIRUBIN,TOTAL 0.4 MG/DL (0.2-1.0); BLOOD UREA NITROGEN 16 MG/DL (7-18); C REACTIVE PROTEIN QUANTITATIV < 0.30 MG/DL (0.00-0.30); CALCIUM LEVEL 9.3 MG/DL (8.5-10.1); CARBON DIOXIDE LEVEL 28 MEQ/L (21-32); CHLORIDE LEVEL 111 MEQ/L (98-107); GLOMERULAR FILTRATION RATE > 60.0 (>56); GLUCOSE, FASTING 67 MG/DL (70-100); POTASSIUM SERUM 4.4 MEQ/L (3.5-5.1); RHEUMATOID FACTOR QUANT 71.1 IU/ML (<15.0); SODIUM LEVEL 146 MEQ/L (136-145); TOTAL PROTEIN 6.5 GM/DL (6.4-8.2)
[2019-02-20 11:18] LABS: HEPATITIS B SURFACE ANTIBODY NEGATIVE (POSITIVE)
[2019-02-20 11:30] LABS: HEPATITIS B SURFACE ANTIGEN NEGATIVE (NEGATIVE)
[2019-02-20 11:57] LABS: HEPATITIS C VIRUS ABY INDEX 0.1 INDEX (<0.8)
== END ==
LOC: M SFHCRHEU 11:31
PROVIDERS: ATTEND Internal Medicine Rheumatology
DX: M06.9 Rheumatoid arthritis, unspecified (principal)

== ENCOUNTER → 2019-06-12 | Outpatient (CLI) | payer OTHER ==
[~2019-06-12] MED LIST changes: -OMEP-172 PO; +OMEP1CAP73 PO
[2019-06-12 12:31] LABS: EOS # 0.2 10^3/uL (0.0-0.5); EOS % 4.8 % (0.0-3.0); HEMATOCRIT 39.8 % (42.0-52.0); HEMOGLOBIN 13.2 g/dl (13.5-17.5); LYMPH # 1.2 10^3/uL (1.5-5.0); LYMPH % 29.5 % (24.0-44.0); MEAN CORPUSCULAR HEMOGLOBIN 31.9 pg (27.0-33.0); MEAN CORPUSCULAR HGB CONC 33.2 g/dl (32.0-36.5); MEAN CORPUSCULAR VOLUME 96.1 fl (80.0-96.0); MONO # 0.6 10^3/uL (0.0-0.8); MONO % 15.4 % (0.0-5.0); NEUTROPHILS # 1.9 10^3/uL (1.5-8.5); PLATELET COUNT, AUTOMATED 205 10^3/uL (150-450); RED BLOOD COUNT 4.14 10^6/uL (4.30-6.10)
[2019-06-12 12:48] LABS: ERYTHROCYTE SEDIMENTATION RATE 8 mm/hr (0-20)
[2019-06-12 13:04] LABS: ALBUMIN 3.4 GM/DL (3.2-5.2); ALT/SGPT 19 U/L (12-78); BILIRUBIN,TOTAL 0.6 MG/DL (0.2-1.0); BLOOD UREA NITROGEN 20 MG/DL (7-18); C REACTIVE PROTEIN QUANTITATIV < 0.30 MG/DL (0.00-0.30); CALCIUM LEVEL 8.7 MG/DL (8.5-10.1); CARBON DIOXIDE LEVEL 28 MEQ/L (21-32); CHLORIDE LEVEL 108 MEQ/L (98-107); CREATININE FOR GFR 1.16 MG/DL (0.70-1.30); GLOMERULAR FILTRATION RATE > 60.0 (>56); GLUCOSE, FASTING 177 MG/DL (70-100); POTASSIUM SERUM 4.2 MEQ/L (3.5-5.1); SODIUM LEVEL 140 MEQ/L (136-145); TOTAL PROTEIN 6.4 GM/DL (6.4-8.2)
== END ==
LOC: M LAB 11:50
PROVIDERS: ATTEND Internal Medicine
DX: M06.9 Rheumatoid arthritis, unspecified (principal); M05.79 Rheumatoid arthritis with rheumatoid factor of multiple sites without organ or systems involvement

== ENCOUNTER → 2019-08-28 | Outpatient (CLI) | payer OTHER | LOC: M LAB 11:22 | PROVIDERS: ATTEND Physician Assistant | DX: E55.9 Vitamin D deficiency, unspecified (principal) ==

== ENCOUNTER → 2019-08-28 | Outpatient (CLI) | payer OTHER ==
[2019-08-28 12:45] LABS: BASO % 0.5 % (0.0-1.0); EOS # 0.2 10^3/uL (0.0-0.5); EOS % 4.5 % (0.0-3.0); HEMATOCRIT 39.3 % (42.0-52.0); HEMOGLOBIN 13.3 g/dl (13.5-17.5); LYMPH % 25.2 % (24.0-44.0); MEAN CORPUSCULAR HEMOGLOBIN 32.8 pg (27.0-33.0); MEAN CORPUSCULAR HGB CONC 33.8 g/dl (32.0-36.5); MEAN CORPUSCULAR VOLUME 96.8 fl (80.0-96.0); MONO # 0.9 10^3/uL (0.0-0.8); MONO % 22.3 % (0.0-5.0); NEUTROPHILS # 1.8 10^3/uL (1.5-8.5); NEUTROPHILS % 47.2 % (36.0-66.0); PLATELET COUNT, AUTOMATED 241 10^3/uL (150-450); RED BLOOD COUNT 4.06 10^6/uL (4.30-6.10); WHITE BLOOD COUNT 3.8 10^3/uL (4.0-10.0)
[2019-08-28 13:07] LABS: ALBUMIN 3.5 GM/DL (3.2-5.2); ALT/SGPT 40 U/L (12-78); BILIRUBIN,TOTAL 0.5 MG/DL (0.2-1.0); BLOOD UREA NITROGEN 34 MG/DL (7-18); C REACTIVE PROTEIN QUANTITATIV < 0.30 MG/DL (0.00-0.30); CARBON DIOXIDE LEVEL 27 MEQ/L (21-32); CHLORIDE LEVEL 110 MEQ/L (98-107); CREATININE FOR GFR 1.17 MG/DL (0.70-1.30); GLOMERULAR FILTRATION RATE > 60.0 (>56); GLUCOSE, FASTING 56 MG/DL (70-100); POTASSIUM SERUM 4.4 MEQ/L (3.5-5.1); SODIUM LEVEL 141 MEQ/L (136-145); TOTAL PROTEIN 6.5 GM/DL (6.4-8.2)
[2019-08-28 13:25] LABS: ERYTHROCYTE SEDIMENTATION RATE 17 mm/hr (0-20)
== END ==
LOC: M LAB 11:20
PROVIDERS: ATTEND Internal Medicine
DX: M05.79 Rheumatoid arthritis with rheumatoid factor of multiple sites without organ or systems involvement (principal)

== ENCOUNTER → 2019-11-19 | Outpatient (CLI) | payer OTHER ==
[~2019-11-19] MED LIST changes: -ASPI81TA85 PO; +ASPI81TA86 PO
== END ==
LOC: M LAB 09:25
PROVIDERS: ATTEND Physician Assistant
DX: E55.9 Vitamin D deficiency, unspecified (principal)

== ENCOUNTER → 2019-11-19 | Outpatient (CLI) | payer OTHER ==
[2019-11-19 10:36] LABS: BASO % 0.5 % (0.0-1.0); EOS # 0.2 10^3/uL (0.0-0.5); EOS % 3.1 % (0.0-3.0); HEMATOCRIT 40.3 % (42.0-52.0); HEMOGLOBIN 14.3 g/dl (13.5-17.5); LYMPH # 1.2 10^3/uL (1.5-5.0); MEAN CORPUSCULAR HEMOGLOBIN 35.9 pg (27.0-33.0); MEAN CORPUSCULAR HGB CONC 35.5 g/dl (32.0-36.5); MEAN CORPUSCULAR VOLUME 101.3 fl (80.0-96.0); MONO # 0.7 10^3/uL (0.0-0.8); NEUTROPHILS % 64.9 % (36.0-66.0); PLATELET COUNT, AUTOMATED 329 10^3/uL (150-450); RED BLOOD COUNT 3.98 10^6/uL (4.30-6.10); WHITE BLOOD COUNT 6.2 10^3/uL (4.0-10.0)
[2019-11-19 10:54] LABS: ALBUMIN 3.7 GM/DL (3.2-5.2); BILIRUBIN,TOTAL 0.6 MG/DL (0.2-1.0); C REACTIVE PROTEIN QUANTITATIV 0.3 MG/DL (0.00-0.30); CALCIUM LEVEL 9.3 MG/DL (8.5-10.1); CREATININE FOR GFR 1.36 MG/DL (0.70-1.30); GLOMERULAR FILTRATION RATE 57.7 (>56); POTASSIUM SERUM 4.2 MEQ/L (3.5-5.1)
[2019-11-19 11:25] LABS: ERYTHROCYTE SEDIMENTATION RATE 15 mm/hr (0-20)
== END ==
LOC: M LAB 09:28
PROVIDERS: ATTEND Internal Medicine
DX: M05.79 Rheumatoid arthritis with rheumatoid factor of multiple sites without organ or systems involvement (principal)

== ENCOUNTER → 2019-12-29 | Outpatient (CLI) | payer OTHER ==
[2019-12-29 09:18] LABS: BASO % 0.5 % (0.0-1.0); EOS # 0.2 10^3/uL (0.0-0.5); HEMATOCRIT 40.4 % (42.0-52.0); HEMOGLOBIN 13.5 g/dl (13.5-17.5); LYMPH # 1.2 10^3/uL (1.5-5.0); LYMPH % 31.8 % (24.0-44.0); MEAN CORPUSCULAR HEMOGLOBIN 34.2 pg (27.0-33.0); MEAN CORPUSCULAR HGB CONC 33.4 g/dl (32.0-36.5); MEAN CORPUSCULAR VOLUME 102.3 fl (80.0-96.0); MONO # 0.5 10^3/uL (0.0-0.8); MONO % 12.5 % (0.0-5.0); NEUTROPHILS # 1.9 10^3/uL (1.5-8.5); NEUTROPHILS % 50.9 % (36.0-66.0); PLATELET COUNT, AUTOMATED 216 10^3/uL (150-450); RED BLOOD COUNT 3.95 10^6/uL (4.30-6.10); WHITE BLOOD COUNT 3.8 10^3/uL (4.0-10.0)
[2019-12-29 09:48] LABS: ALBUMIN 3.5 GM/DL (3.2-5.2); ALT/SGPT 41 U/L (12-78); BILIRUBIN,TOTAL 0.8 MG/DL (0.2-1.0); BLOOD UREA NITROGEN 21 MG/DL (7-18); CALCIUM LEVEL 9.1 MG/DL (8.5-10.1); CARBON DIOXIDE LEVEL 29 MEQ/L (21-32); CHLORIDE LEVEL 107 MEQ/L (98-107); CREATININE FOR GFR 1.31 MG/DL (0.70-1.30); GLOMERULAR FILTRATION RATE > 60.0 (>56); GLUCOSE, FASTING 190 MG/DL (70-100); POTASSIUM SERUM 4.3 MEQ/L (3.5-5.1); SODIUM LEVEL 140 MEQ/L (136-145); TOTAL PROTEIN 6.6 GM/DL (6.4-8.2)
== END ==
LOC: M LAB 08:24
PROVIDERS: ATTEND Internal Medicine
DX: M06.9 Rheumatoid arthritis, unspecified (principal)

== ENCOUNTER 2020-01-26 18:28 | Emergency (ER) | payer OTHER ==
[~2020-01-26] VITALS: Ht 170.2 cm; Wt 93.9 kg
[2020-01-26 18:29] VITALS: BP 139/70
== END 2020-01-26 19:06 | disposition home or self-care (01) ==
LOC: M ED 18:28
DX: R68.84 Jaw pain (principal); H92.01 Otalgia, right ear; R22.0 Localized swelling, mass and lump, head; E11.9 Type 2 diabetes mellitus without complications; I10 Essential (primary) hypertension; M06.9 Rheumatoid arthritis, unspecified; F17.210 Nicotine dependence, cigarettes, uncomplicated; Z88.8 Allergy status to other drugs, medicaments and biological substances; Z79.899 Other long term (current) drug therapy; Z79.82 Long term (current) use of aspirin; Z79.4 Long term (current) use of insulin; Z79.2 Long term (current) use of antibiotics

== ENCOUNTER → 2020-01-27 | Outpatient (CLI) | payer OTHER ==
[2020-01-27 10:55] LABS: BASO % 1.2 % (0.0-1.0); EOS # 0.1 10^3/uL (0.0-0.5); EOS % 4.3 % (0.0-3.0); HEMATOCRIT 39.3 % (42.0-52.0); HEMOGLOBIN 13.3 g/dl (13.5-17.5); LYMPH # 0.9 10^3/uL (1.5-5.0); LYMPH % 26.8 % (24.0-44.0); MEAN CORPUSCULAR HEMOGLOBIN 34.7 pg (27.0-33.0); MEAN CORPUSCULAR HGB CONC 33.8 g/dl (32.0-36.5); MEAN CORPUSCULAR VOLUME 102.6 fl (80.0-96.0); MONO # 0.4 10^3/uL (0.0-0.8); MONO % 13.5 % (0.0-5.0); NEUTROPHILS # 1.8 10^3/uL (1.5-8.5); NEUTROPHILS % 53.9 % (36.0-66.0); PLATELET COUNT, AUTOMATED 223 10^3/uL (150-450); RED BLOOD COUNT 3.83 10^6/uL (4.30-6.10); WHITE BLOOD COUNT 3.3 10^3/uL (4.0-10.0)
[2020-01-27 11:21] LABS: ERYTHROCYTE SEDIMENTATION RATE 10 mm/hr (0-20)
[2020-01-27 11:31] LABS: ALBUMIN 3.6 GM/DL (3.2-5.2); ALT/SGPT 31 U/L (12-78); BILIRUBIN,TOTAL 0.6 MG/DL (0.2-1.0); BLOOD UREA NITROGEN 20 MG/DL (7-18); CALCIUM LEVEL 8.7 MG/DL (8.5-10.1); CARBON DIOXIDE LEVEL 27 MEQ/L (21-32); CHLORIDE LEVEL 110 MEQ/L (98-107); CREATININE FOR GFR 1.19 MG/DL (0.70-1.30); GLOMERULAR FILTRATION RATE > 60.0 (>56); GLUCOSE, FASTING 139 MG/DL (70-100); POTASSIUM SERUM 4.6 MEQ/L (3.5-5.1); SODIUM LEVEL 142 MEQ/L (136-145); TOTAL PROTEIN 6.5 GM/DL (6.4-8.2)
== END ==
LOC: M LAB 09:42
PROVIDERS: ATTEND Internal Medicine
DX: M06.9 Rheumatoid arthritis, unspecified (principal)

== ENCOUNTER → 2020-02-15 | Outpatient (CLI) | payer OTHER ==
[2020-02-15 09:10] LABS: BASO % 0.7 % (0.0-1.0); EOS # 0.1 10^3/uL (0.0-0.5); EOS % 3.2 % (0.0-3.0); HEMATOCRIT 39.4 % (42.0-52.0); HEMOGLOBIN 13.1 g/dl (13.5-17.5); LYMPH # 1.1 10^3/uL (1.5-5.0); LYMPH % 27.4 % (24.0-44.0); MEAN CORPUSCULAR HEMOGLOBIN 34.1 pg (27.0-33.0); MEAN CORPUSCULAR HGB CONC 33.2 g/dl (32.0-36.5); MEAN CORPUSCULAR VOLUME 102.6 fl (80.0-96.0); MONO # 0.6 10^3/uL (0.0-0.8); MONO % 13.8 % (0.0-5.0); NEUTROPHILS # 2.2 10^3/uL (1.5-8.5); NEUTROPHILS % 54.4 % (36.0-66.0); PLATELET COUNT, AUTOMATED 273 10^3/uL (150-450); RED BLOOD COUNT 3.84 10^6/uL (4.30-6.10); WHITE BLOOD COUNT 4.1 10^3/uL (4.0-10.0)
== END ==
LOC: M LAB 08:02
PROVIDERS: ATTEND Internal Medicine
DX: D72.819 Decreased white blood cell count, unspecified (principal)

== ENCOUNTER → 2020-06-01 | Outpatient (REF) | payer OTHER ==
[2020-06-01 18:46] LABS: IRON (FE) 99 UG/DL (65-175); PERCENT SATURATION 33.4 % (19.7-50.0); TOTAL IRON BINDING CAPACITY 296 UG/DL (250-450)
[2020-06-01 18:53] LABS: FOLATE > 24.0 NG/ML; VITAMIN B12 LEVEL 303 PG/ML
== END ==
LOC: M LAB REF 17:22
PROVIDERS: ATTEND Internal Medicine Nephrology
DX: D64.9 Anemia, unspecified (principal)

== ENCOUNTER → 2020-06-06 | Outpatient (CLI) | payer OTHER ==
[2020-06-06 11:07] LABS: BASO % 0.8 % (0.0-1.0); EOS # 0.2 10^3/uL (0.0-0.5); EOS % 3.8 % (0.0-3.0); HEMATOCRIT 39.7 % (42.0-52.0); HEMOGLOBIN 13.4 g/dl (13.5-17.5); LYMPH # 0.8 10^3/uL (1.5-5.0); LYMPH % 20.9 % (24.0-44.0); MEAN CORPUSCULAR HEMOGLOBIN 34.7 pg (27.0-33.0); MEAN CORPUSCULAR HGB CONC 33.8 g/dl (32.0-36.5); MEAN CORPUSCULAR VOLUME 102.8 fl (80.0-96.0); MONO # 0.7 10^3/uL (0.0-0.8); MONO % 17.3 % (2.0-8.0); NEUTROPHILS # 2.2 10^3/uL (1.5-8.5); NEUTROPHILS % 56.9 % (36.0-66.0); PLATELET COUNT, AUTOMATED 244 10^3/uL (150-450); RED BLOOD COUNT 3.86 10^6/uL (4.30-6.10); WHITE BLOOD COUNT 3.9 10^3/uL (4.0-10.0)
[2020-06-06 11:24] LABS: ERYTHROCYTE SEDIMENTATION RATE 11 mm/hr (0-20)
[2020-06-06 11:28] LABS: ALBUMIN 3.7 GM/DL (3.2-5.2); ALT/SGPT 36 U/L (12-78); BILIRUBIN,TOTAL 0.6 MG/DL (0.2-1.0); BLOOD UREA NITROGEN 27 MG/DL (7-18); CALCIUM LEVEL 8.8 MG/DL (8.5-10.1); CARBON DIOXIDE LEVEL 27 MEQ/L (21-32); CHLORIDE LEVEL 108 MEQ/L (98-107); CREATININE FOR GFR 1.19 MG/DL (0.70-1.30); GLOMERULAR FILTRATION RATE > 60.0 (>56); GLUCOSE, FASTING 206 MG/DL (70-100); POTASSIUM SERUM 4.3 MEQ/L (3.5-5.1); SODIUM LEVEL 140 MEQ/L (136-145); TOTAL PROTEIN 6.6 GM/DL (6.4-8.2)
== END ==
LOC: M LAB 09:11
PROVIDERS: ATTEND Internal Medicine
DX: M05.79 Rheumatoid arthritis with rheumatoid factor of multiple sites without organ or systems involvement (principal)

== ENCOUNTER 2020-08-13 17:02 | Emergency (ER) | payer OTHER ==
[2020-08-13] MEDS ORDERED: NS 1,000 ML IV SCH (17:20)
[2020-08-13] MEDS ORDERED: ETOMIDATE INJ 20MG/10ML VIAL IV ONE (17:20)
[2020-08-13] MEDS ORDERED: LIDOCAINE 2% 5ML JELLY UROJET TOP ONE (17:20)
[2020-08-13] MEDS ORDERED: SUCCINYLCHOLINE INJ 200 MG/10 ML VIAL (J0330) IV ONE (17:20)
[2020-08-13] MEDS ORDERED: PROPOFOL 1,000 MG/100 ML VIAL As Ordered ONE ×2 (17:28→19:11)
[2020-08-13] MEDS ORDERED: NS 1,000 ML IV ONE (17:30)
[2020-08-13] MEDS ORDERED: ISOVUE-370 76% 100ML VIAL As Ordered ONE (17:34)
[2020-08-13] MEDS ORDERED: KETAMINE HCL 200 MG/20 ML VIAL IV ONE (17:35)
[2020-08-13 17:40] LABS: AMYLASE 20 U/L (25-115); ETHYL ALCOHOL (ETHANOL) 0.181 % (0.000-0.010)
[2020-08-13 17:53] LABS: BASO % 0.6 % (0.0-1.0); EOS # 0.2 10^3/uL (0.0-0.5); EOS % 2.3 % (0.0-3.0); HEMATOCRIT 45.5 % (42.0-52.0); HEMOGLOBIN 14.7 g/dl (13.5-17.5); LYMPH % 30.9 % (24.0-44.0); MEAN CORPUSCULAR HEMOGLOBIN 32.9 pg (27.0-33.0); MEAN CORPUSCULAR HGB CONC 32.3 g/dl (32.0-36.5); MEAN CORPUSCULAR VOLUME 101.8 fl (80.0-96.0); MONO # 1.1 10^3/uL (0.0-0.8); MONO % 17.4 % (2.0-8.0); NEUTROPHILS # 3.2 10^3/uL (1.5-8.5); NEUTROPHILS % 48.5 % (36.0-66.0); PLATELET COUNT, AUTOMATED 230 10^3/uL (150-450); RED BLOOD COUNT 4.47 10^6/uL (4.30-6.10); WHITE BLOOD COUNT 6.6 10^3/uL (4.0-10.0)
--- NOTE | 2020-08-13 17:57 | REP ---
INDICATION: CHEST PAIN COMPARISON: None. TECHNIQUE: Two successive portable AP view of the chest FINDINGS: Second radiograph demonstrates the endotracheal tube approximately 2.5 cm above the mejia and the nasogastric tube below the left hemidiaphragm. The mediastinum and cardiac silhouette are stable. Lung quintanilla demonstrate subtle opacity involving the left upper lung zone and possible left basilar atelectasis. No obvious effusion. No pneumothorax. IMPRESSION: 1. Endotracheal tube and nasogastric tube in satisfactory position. 2. Subtle left-sided opacities are suspected. <Electronically signed by Jeison Rose > 08/13/20 [id number]
[2020-08-13] MEDS ORDERED: NOREPINEPHRINE BITARTRATE 8 MG in D5W 500 ML IV SCH (18:00)
[2020-08-13] MEDS ORDERED: methylPREDNISolone 125MG 2ML VIAL IV ONE (18:15)
[2020-08-13] MEDS ORDERED: ALBUTEROL SULFATE 2.5 MG/0.5 ML INH NEB SOLN INH ONE (18:15)
[2020-08-13] MEDS ORDERED: IPRATROPIUM 0.5MG/ALBUTEROL 2.5MG INH SOL UD 3ML (DUONEB) NEB ONE (18:15)
[2020-08-13 18:16] LABS: ALBUMIN 3.9 GM/DL (3.2-5.2); ALT/SGPT 30 U/L (12-78); BILIRUBIN,DIRECT 0.2 MG/DL (0.0-0.2); BILIRUBIN,TOTAL 0.4 MG/DL (0.2-1.0); BLOOD UREA NITROGEN 19 MG/DL (7-18); CALCIUM LEVEL 8.6 MG/DL (8.5-10.1); CARBON DIOXIDE LEVEL 22 MEQ/L (21-32); CHLORIDE LEVEL 107 MEQ/L (98-107); CK-MB VALUE MASS 6.1 NG/ML (<3.6); CPK CREATINE PHOSPHOKINASE 387 U/L (39-308); CREATININE FOR GFR 1.38 MG/DL (0.70-1.30); FREE T4 0.59 NG/DL (0.76-1.46); GLOMERULAR FILTRATION RATE 56.7 (>56); GLUCOSE, FASTING 292 MG/DL (70-100); LIPASE 45 U/L (73-393); MB/CK RELATIVE INDEX 1.58 (< OR =4); POTASSIUM SERUM 3.9 MEQ/L (3.5-5.1); SODIUM LEVEL 139 MEQ/L (136-145); TOTAL PROTEIN 7.4 GM/DL (6.4-8.2); TROPONIN I < 0.02 NG/ML (< 0.10)
[2020-08-13 18:22] LABS: INR 1.07; PARTIAL THROMBOPLASTIN TIME 23.5 SECONDS (24.2-38.5); PROTHROMBIN TIME 14.1 SECONDS (12.5-14.3)
--- NOTE | 2020-08-13 18:34 | REPVR ---
PROCEDURE INFORMATION: Exam: CT Chest With Contrast; Diagnostic Exam date and time: 08/13/2020 5:52 PM Age: 54 years old Clinical indication: Injury or trauma; Fall; Blunt trauma (contusions or hematomas) TECHNIQUE: Imaging protocol: Diagnostic computed tomography of the chest with contrast. Radiation optimization: All CT scans at this facility use at least one of these dose optimization techniques: automated exposure control; mA and/or kV adjustment per patient size (includes targeted exams where dose is matched to clinical indication); or iterative reconstruction. Contrast material: ISOVUE 370; Contrast volume: 100 ml; Contrast route: INTRAVENOUS (IV); COMPARISON: CT Chest without contrast 05/20/2014 10:30 AM FINDINGS: Tubes, catheters and devices: The patient is intubated with endotracheal tube tip at the mejia are. There is an enteric tube. Lungs: As below. Pleural spaces: There are bilateral pleural effusions with associated dependent atelectasis although this could also be due to bilateral posterior contusion. Heart: No cardiomegaly or pericardial effusion. Aorta: There is no aneurysmal dilatation of thoracic aorta or dissection. Lymph nodes: Unremarkable. No enlarged lymph nodes. Bones/joints: No acute fracture. Soft tissues: Unremarkable. IMPRESSION: 1. There are bilateral pleural effusions and consolidation posteriorly in both lungs presumably due to atelectasis although contusion is within the differential. No acute fracture. 2. Endotracheal tube tip is at level of the mejia. Enteric tube tip is within the stomach. Electronically signed by: Marguerite Castorena On 08/13/2020 18:34:29 PM
--- NOTE | 2020-08-13 18:36 | REPVR ---
PROCEDURE INFORMATION: Exam: CT Cervical Spine Without Contrast Exam date and time: 08/13/2020 5:52 PM Age: 54 years old Clinical indication: Other: Unresponsive TECHNIQUE: Imaging protocol: Computed tomography images of the cervical spine without contrast. Radiation optimization: All CT scans at this facility use at least one of these dose optimization techniques: automated exposure control; mA and/or kV adjustment per patient size (includes targeted exams where dose is matched to clinical indication); or iterative reconstruction. COMPARISON: No relevant prior studies available. FINDINGS: Tubes, catheters and devices: The patient is intubated. Endotracheal tube tip is below the level of imaging. An enteric tube is seen in the esophagus. Bones/joints: Straightening of the cervical lordosis may be positional or due to muscle spasm. No acute fracture seen. Mild disc height loss and spondylosis at C5-C6. Hypodense lesions in the posterior aspects of the C6 and C7 vertebral bodies, nonspecific, potentially benign. Discs/Spinal canal/Neural foramina: No significant disc protrusion. No severe spinal canal stenosis. No significant neural foraminal narrowing. Lungs: The lung apices demonstrate dependent atelectasis. The apices appear emphysematous. There may be trace apical pleural effusions; difficult to assess given the presence of motion artifacts. Soft tissues: Unremarkable. IMPRESSION: No cervical spine fracture seen. Electronically signed by: Crissy Hoover On 08/13/2020 18:36:16 PM
--- NOTE | 2020-08-13 18:40 | REPVR ---
PROCEDURE INFORMATION: Exam: CT Head Without Contrast Exam date and time: 08/13/2020 5:52 PM Age: 54 years old Clinical indication: Coma or unconsciousness; Additional info: Unresponsive TECHNIQUE: Imaging protocol: Computed tomography of the head without contrast. Radiation optimization: All CT scans at this facility use at least one of these dose optimization techniques: automated exposure control; mA and/or kV adjustment per patient size (includes targeted exams where dose is matched to clinical indication); or iterative reconstruction. COMPARISON: CT Maxilofacial w/out contrast 01/17/2014 12:52 PM FINDINGS: Brain: The brain demonstrates mild generalized volume loss. No hemorrhage or edema seen. Chronic appearing left periatrial and holder radiata lacunar infarcts. Cerebral ventricles: No ventriculomegaly. Paranasal sinuses: Visualized sinuses are unremarkable. No fluid levels. Mastoid air cells: Visualized mastoid air cells are well aerated. Bones/joints: No acute calvarial fracture seen. A chronic appearing nasal bone fracture. Soft tissues: Right parietal scalp soft tissue swelling. IMPRESSION: No acute intracranial abnormality seen. Electronically signed by: Crissy Hoover On 08/13/2020 18:40:24 PM
[2020-08-13] MEDS ORDERED: PIPERACILLIN/TAZOBACTAM SOD 4.5 GM in D5W MINI-BAG PLUS 50 ML IV ONE (18:45)
--- NOTE | 2020-08-13 18:46 | REPVR ---
PROCEDURE INFORMATION: Exam: CT Abdomen And Pelvis With Contrast Exam date and time: 08/13/2020 5:52 PM Age: 54 years old Clinical indication: Injury or trauma; Fall; Blunt; Generalized TECHNIQUE: Imaging protocol: Computed tomography of the abdomen and pelvis with contrast. Radiation optimization: All CT scans at this facility use at least one of these dose optimization techniques: automated exposure control; mA and/or kV adjustment per patient size (includes targeted exams where dose is matched to clinical indication); or iterative reconstruction. Contrast material: ISOVUE 370; Contrast volume: 100 ml; Contrast route: INTRAVENOUS (IV); COMPARISON: No relevant prior studies available. FINDINGS: Tubes, catheters and devices: Enteric tube tip is within the stomach. Pleural spaces: Bilateral pleural effusions with consolidation posteriorly in both lower lobes. Liver: There appears to be low density in the posterior margin of the liver series 407, image 28 -52, series 405 images 26 -35 which may be due to contusion. There is also artifact in this location which diminishes detail. Gallbladder and bile ducts: The gallbladder is unremarkable. Pancreas: Pancreas is atrophic. Spleen: The spleen is unremarkable. Adrenal glands: The adrenal glands are unremarkable. Kidneys and ureters: The kidneys are unremarkable. Stomach and bowel: There is no evidence of intestinal obstruction. Appendix: The appendix is unremarkable. Intraperitoneal space: Unremarkable. No free air. No significant fluid collection. Vasculature: There is no evidence of an infrarenal abdominal aortic aneurysm. There is mild atherosclerotic calcification. Lymph nodes: Unremarkable. No enlarged lymph nodes. Urinary bladder: The bladder is unremarkable. Reproductive: Unremarkable as visualized. Bones/joints: Unremarkable. No acute fracture. Soft tissues: Unremarkable. IMPRESSION: 1. Bilateral pleural effusions with subsegmental atelectasis versus contusion posteriorly in both lungs. 2. Possible contusion posterior margin of the liver. No hematoma is apparent within the liver or subcapsular. 3. No fracture is identified. Electronically signed by: Marguerite Castorena On 08/13/2020 18:45:40 PM
[2020-08-13 18:58] LABS: AMPHETAMINES LEVEL URINE NEGATIVE (NEGATIVE); BARBITURATES URINE NEGATIVE (NEGATIVE); BENZODIAZEPINES URINE NEGATIVE (NEGATIVE); CANNABINOIDS URINE NEGATIVE (NEGATIVE); COCAINE METABOLITE URINE POSITIVE (NEGATIVE); METHADONE URINE NEGATIVE (NEGATIVE); OPIATES URINE NEGATIVE (NEGATIVE); PHENCYCLIDINE URINE NEGATIVE (NEGATIVE)
[2020-08-13] MEDS: KETAMINE HCL 200 MG/20 ML VIAL IV PRN ×2 (18:58→19:25)
[2020-08-13 19:03] LABS: C REACTIVE PROTEIN QUANTITATIV < 0.30 MG/DL (0.00-0.30); NT-PRO BNP 512 PG/ML (<125)
--- NOTE | 2020-08-13 19:04 | REP ---
INDICATION: ett assessment COMPARISON: 08/13/2020 at 5:20 p.m. TECHNIQUE: Portable AP view of the chest FINDINGS: Endotracheal tube 4.3 cm above the mejia. Nasogastric tube courses below the left hemidiaphragm. The mediastinum and cardiac silhouette are stable and within normal limits for portable technique. The lung quintanilla demonstrate chronic changes with suspected bilateral perihilar and left lower lobe opacities. Small left effusion is suggested. No pneumothorax.. IMPRESSION: 1. Endotracheal tube in satisfactory position. 2. Perihilar and left lower lobe opacities along with possible left pleural effusion. <Electronically signed by Jeison Rose > 08/13/20 [id number]
[2020-08-13] MEDS ORDERED: propofoL 200 MG/20 ML VIAL IV ONE (19:15)
[2020-08-13 19:21] LABS: ABG BASE EXCESS -7.8 (-2.0-2.0); ABG O2 SATURATION 97.8 % (95.0-99.0); ABG PARTIAL PRESSURE CO2 43.4 mmHg (35.0-45.0); ABG PARTIAL PRESSURE O2 181.2 mmHg (75.0-100.0); ABG STANDARD HCO3 18.2 MEQ/L (22.0-26.0); ABG TOTAL CO2 20.3 MEQ/L (22.0-29.0); ABG pH (ARTERIAL) 7.259 UNITS (7.350-7.450)
[2020-08-13] MEDS: propofoL 1,000 MG in IV 1 EA IV SCH ×3 (19:23→19:25)
[2020-08-13 19:42] VITALS: BP 142/82
[2020-08-13] MEDS ORDERED: TIZA4TAB4 PO (19:47)
[2020-08-13] MEDS ORDERED: AMLO2.5T3 PO (19:47)
[2020-08-13] MEDS ORDERED: ATOR40TA75 (19:47)
[2020-08-13] MEDS ORDERED: BASA100I (19:47)
[2020-08-13] MEDS ORDERED: SERTRALINE (19:47)
[2020-08-13] MEDS ORDERED: FOLI1TAB11 (19:47)
[2020-08-13] MEDS ORDERED: ADME100I (19:47)
[2020-08-13] MEDS ORDERED: LEFL1TAB4 (19:47)
[2020-08-13] MEDS ORDERED: ZOLP10TA2 (19:47)
[2020-08-13] MEDS ORDERED: PREG300C PO (19:47)
--- NOTE | 2020-08-13 19:54 | ECGEPIP ---
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
[2020-08-13] MEDS ORDERED: NOREPINEPHRINE BITARTRATE 8 MG in D5W 492 ML IV SCH (20:00)
== END 2020-08-13 19:43 | disposition short-term general hospital (02) ==
LOC: M ED 17:02
DX: S09.90XA Unspecified injury of head, initial encounter (principal); S36.112A Contusion of liver, initial encounter; S27.329A Contusion of lung, unspecified, initial encounter; R41.82 Altered mental status, unspecified; W19.XXXA Unspecified fall, initial encounter; Y92.410 Unspecified street and highway as the place of occurrence of the external cause; Y93.9 Activity, unspecified; Y99.9 Unspecified external cause status; J96.00 Acute respiratory failure, unspecified whether with hypoxia or hypercapnia; J90 Pleural effusion, not elsewhere classified; E11.9 Type 2 diabetes mellitus without complications; E78.5 Hyperlipidemia, unspecified; F17.200 Nicotine dependence, unspecified, uncomplicated; Z79.4 Long term (current) use of insulin; Z79.899 Other long term (current) drug therapy
CPT/HCPCS: 31500; 36600; 51702; 70450; 71045; 71260; 72125; 74177; 80047; 80048; 80076; 80307; 81001; 82077; 82150; 82550; 82553; 82803; 83605; 83690; 83880; 84439; 84443; 85025; 85610; 85730; 86140; 86850; 86900; 86901; 87040; 87798; 93005; 93041; 94640; 94760; 96361; 96365; 96375; 99291; 99292; J0330; J2543; J2930; Q9967

== ENCOUNTER → 2020-08-18 | Outpatient (CLI) | payer OTHER ==
[~2020-08-18] MED LIST changes: +ADME100I; +AMLO2.5T3 PO; +ATOR40TA75; +BASA100I; +FOLI1TAB11; +LEFL1TAB4; +PREG300C PO; +SERTRALINE; +TIZA4TAB4 PO; +ZOLP10TA2
[2020-08-18 11:59] LABS: BASO # 0.1 10^3/uL (0.0-0.2); BASO % 0.9 % (0.0-1.0); EOS # 0.2 10^3/uL (0.0-0.5); EOS % 3.5 % (0.0-3.0); HEMOGLOBIN 14.6 g/dl (13.5-17.5); LYMPH # 1.4 10^3/uL (1.5-5.0); LYMPH % 24.4 % (24.0-44.0); MEAN CORPUSCULAR HEMOGLOBIN 32.7 pg (27.0-33.0); MEAN CORPUSCULAR HGB CONC 33.2 g/dl (32.0-36.5); MEAN CORPUSCULAR VOLUME 98.7 fl (80.0-96.0); MONO # 0.9 10^3/uL (0.0-0.8); MONO % 15.7 % (2.0-8.0); NEUTROPHILS # 3.1 10^3/uL (1.5-8.5); NEUTROPHILS % 55.1 % (36.0-66.0); PLATELET COUNT, AUTOMATED 238 10^3/uL (150-450); RED BLOOD COUNT 4.46 10^6/uL (4.30-6.10); WHITE BLOOD COUNT 5.7 10^3/uL (4.0-10.0)
[2020-08-18 12:44] LABS: ALBUMIN 3.4 GM/DL (3.2-5.2); BILIRUBIN,TOTAL 0.5 MG/DL (0.2-1.0); C REACTIVE PROTEIN QUANTITATIV 0.3 MG/DL (0.00-0.30); CALCIUM LEVEL 9.7 MG/DL (8.5-10.1); CREATININE FOR GFR 1.35 MG/DL (0.70-1.30); GLOMERULAR FILTRATION RATE 58.2 (>56); POTASSIUM SERUM 4.6 MEQ/L (3.5-5.1); TOTAL PROTEIN 6.6 GM/DL (6.4-8.2)
[2020-08-18 13:01] LABS: ERYTHROCYTE SEDIMENTATION RATE 13 mm/hr (0-20)
== END ==
LOC: M LAB 10:40
PROVIDERS: ATTEND Internal Medicine Rheumatology
DX: M05.79 Rheumatoid arthritis with rheumatoid factor of multiple sites without organ or systems involvement (principal)

== ENCOUNTER → 2020-11-01 | Outpatient (REF) | payer OTHER ==
[2020-11-01 17:43] LABS: BASO % 0.7 % (0.0-1.0); EOS # 0.1 10^3/uL (0.0-0.5); EOS % 2.3 % (0.0-3.0); HEMATOCRIT 40.6 % (42.0-52.0); HEMOGLOBIN 13.8 g/dl (13.5-17.5); LYMPH # 1.3 10^3/uL (1.5-5.0); LYMPH % 23.7 % (24.0-44.0); MEAN CORPUSCULAR HEMOGLOBIN 31.9 pg (27.0-33.0); MONO # 0.9 10^3/uL (0.0-0.8); MONO % 16.9 % (2.0-8.0); NEUTROPHILS # 3.1 10^3/uL (1.5-8.5); PLATELET COUNT, AUTOMATED 235 10^3/uL (150-450); RED BLOOD COUNT 4.32 10^6/uL (4.30-6.10); WHITE BLOOD COUNT 5.6 10^3/uL (4.0-10.0)
[2020-11-01 18:07] LABS: ALBUMIN 3.6 GM/DL (3.2-5.2); BILIRUBIN,TOTAL 0.7 MG/DL (0.2-1.0); C REACTIVE PROTEIN QUANTITATIV 0.3 MG/DL (0.00-0.30); CALCIUM LEVEL 10.1 MG/DL (8.5-10.1); CREATININE FOR GFR 1.51 MG/DL (0.70-1.30); POTASSIUM SERUM 4.2 MEQ/L (3.5-5.1); TOTAL PROTEIN 6.8 GM/DL (6.4-8.2)
[2020-11-01 19:37] LABS: ERYTHROCYTE SEDIMENTATION RATE 14 mm/hr (0-20)
== END ==
LOC: M SFHCRHEU 15:39
PROVIDERS: ATTEND Internal Medicine Rheumatology
DX: M05.79 Rheumatoid arthritis with rheumatoid factor of multiple sites without organ or systems involvement (principal)

== ENCOUNTER → 2020-12-12 | Outpatient (REF) | payer OTHER | LOC: M LAB REF 12:57 | PROVIDERS: ATTEND Internal Medicine Nephrology | DX: N18.2 Chronic kidney disease, stage 2 (mild) (principal) ==

== ENCOUNTER 2020-12-15 15:23 | Inpatient (IN) | payer OTHER ==
[~2020-12-15] VITALS: Ht 170.2 cm; Wt 98.8 kg
[2020-12-15] VITALS (7 sets, daily range): BP systolic 99–111; BP diastolic 50–74
[2020-12-15] MEDS ORDERED: NS 1,000 ML IV ONE ×2 (15:40→15:55)
[2020-12-15] MEDS ORDERED: SOD POLYSTYRENE SULFONATE SUSP 15 GM/60 ML UD PO ONE (15:45)
[2020-12-15] MEDS ORDERED: METOCLOPRAMIDE INJ 10MG/2ML VIAL (J2765 PER 1) IV ONE (15:45)
[2020-12-15] MEDS ORDERED: MORPHINE 4 MG/ML 1ML VIAL/SYRINGE (J2270) IV ONE (15:45)
[2020-12-15] MEDS ORDERED: CALCIUM CHLORIDE 10% 1 GM in D5W 100 ML IV ONE (15:45)
[2020-12-15] MEDS ORDERED: HumuLIN R (REGULAR) INSULIN (NovoLIN R) **100U/ML** PER UNIT IV ONE (15:45)
--- NOTE | 2020-12-15 15:48 | REP ---
INDICATION: CHEST PAIN COMPARISON: 08/13/2020 TECHNIQUE: Portable AP view of the chest FINDINGS: The mediastinum and cardiac silhouette are stable and within normal limits for portable technique. The lung quintanilla are clear without acute consolidation, effusion, or pneumothorax. Skeletal structures are intact. IMPRESSION: No acute cardiopulmonary process appreciated. <Electronically signed by Jeison Rose > 12/15/20 [id number]
[2020-12-15 15:56] LABS: BASO # 0.1 10^3/uL (0.0-0.2); BASO % 0.5 % (0.0-1.0); EOS % 0.1 % (0.0-3.0); HEMATOCRIT 40.4 % (42.0-52.0); HEMOGLOBIN 12.5 g/dl (13.5-17.5); LYMPH # 1.1 10^3/uL (1.5-5.0); LYMPH % 8.3 % (24.0-44.0); MEAN CORPUSCULAR HEMOGLOBIN 32.6 pg (27.0-33.0); MEAN CORPUSCULAR HGB CONC 30.9 g/dl (32.0-36.5); MEAN CORPUSCULAR VOLUME 105.2 fl (80.0-96.0); MONO # 1.6 10^3/uL (0.0-0.8); MONO % 11.7 % (2.0-8.0); NEUTROPHILS # 10.7 10^3/uL (1.5-8.5); NEUTROPHILS % 77.5 % (36.0-66.0); PLATELET COUNT, AUTOMATED 221 10^3/uL (150-450); RED BLOOD COUNT 3.84 10^6/uL (4.30-6.10); WHITE BLOOD COUNT 13.8 10^3/uL (4.0-10.0)
[2020-12-15 16:00] LABS: ABG BASE EXCESS -25.9 (-2.0-2.0); ABG HCO3 4.2 MEQ/L (22.0-26.0); ABG O2 SATURATION 96.3 % (95.0-99.0); ABG PARTIAL PRESSURE O2 146.8 mmHg (75.0-100.0); ABG STANDARD HCO3 6.6 MEQ/L (22.0-26.0); ABG TOTAL CO2 4.8 MEQ/L (22.0-29.0)
[2020-12-15 16:08] LABS: ABG PARTIAL PRESSURE CO2 18.4 mmHg (35.0-45.0); ABG pH (ARTERIAL) 6.977 UNITS (7.350-7.450)
[2020-12-15] MEDS ORDERED: SODIUM BICARBONATE 8.4% INJ 50 ML SYRINGE IV STA ×3 (16:25→21:13)
[2020-12-15] MEDS ORDERED: NS 780 ML in IV 1 EA IV ONE (16:50)
[2020-12-15 17:10] LABS: OSMOLALITY SERUM 350 MOSM/KG (275-295)
[2020-12-15 17:11] LABS: ALBUMIN 3.4 GM/DL (3.2-5.2); ALT/SGPT 25 U/L (12-78); BILIRUBIN,DIRECT 0.3 MG/DL (0.0-0.2); BILIRUBIN,TOTAL 0.8 MG/DL (0.2-1.0); BLOOD UREA NITROGEN 74 MG/DL (7-18); CALCIUM LEVEL 8.5 MG/DL (8.5-10.1); CARBON DIOXIDE LEVEL 6 MEQ/L (21-32); CHLORIDE LEVEL 84 MEQ/L (98-107); CREATININE FOR GFR 4.41 MG/DL (0.70-1.30); ETHYL ALCOHOL (ETHANOL) < 0.003 % (0.000-0.010); GLOMERULAR FILTRATION RATE 14.8 (>56); GLUCOSE, FASTING 930 MG/DL (70-100); LIPASE 27 U/L (73-393); MAGNESIUM LEVEL 2.1 MG/DL (1.8-2.4); PHOSPHORUS LEVEL 10.8 MG/DL (2.5-4.9); POTASSIUM SERUM 7.1 MEQ/L (3.5-5.1); SODIUM LEVEL 120 MEQ/L (136-145); TOTAL PROTEIN 6.4 GM/DL (6.4-8.2)
[2020-12-15] MEDS ORDERED: INSULIN IV RATE CHANGE DOCUMENTATION ML/HR XX SCH (17:15)
[2020-12-15] MEDS ORDERED: INSULIN REGULAR IN 0.9 % NACL 100 UNIT in IV 1 EA IV SCH ×4 (17:15→18:30)
[2020-12-15] MEDS ORDERED: ARNU1INH3 INH (17:57)
[2020-12-15] MEDS ORDERED: OMEP40CA4 PO (17:57)
[2020-12-15] MEDS ORDERED: ZOLP10TA2 PO (17:57)
[2020-12-15] MEDS ORDERED: ZOLO100T PO (17:57)
[2020-12-15] MEDS ORDERED: CIAL5TAB PO (17:57)
[2020-12-15] MEDS ORDERED: ADME100I SC (17:57)
[2020-12-15] MEDS ORDERED: METO50TA7 PO (17:57)
[2020-12-15] MEDS ORDERED: TIZA4TAB4 PO (17:57)
[2020-12-15] MEDS ORDERED: BASA100I SC ×2 (17:57)
[2020-12-15] MEDS ORDERED: ASPI-226 PO (17:57)
[2020-12-15] MEDS ORDERED: FOLI1TAB11 PO (17:57)
[2020-12-15] MEDS ORDERED: AMLO1TAB24 PO (17:57)
[2020-12-15] MEDS ORDERED: LEFL1TAB4 PO (17:57)
[2020-12-15] MEDS ORDERED: LYRI300C PO (17:57)
[2020-12-15] MEDS ORDERED: ALBU8.5H INH (17:57)
[2020-12-15] MEDS ORDERED: ATOR40TA75 PO (17:57)
[2020-12-15] MEDS ORDERED: HOME MED LIST COMPLETE! XX SCH (18:00)
[2020-12-15] MEDS ORDERED: NS 1,000 ML IV SCH (18:30)
[2020-12-15 18:33] LABS: RSV AMPLIFICATION NEGATIVE (NEGATIVE)
[2020-12-15 18:51] LABS: HEMOGLOBIN A1c 7.7 %
[2020-12-15] MEDS ORDERED: ALBUTEROL SULFATE 2.5 MG/0.5 ML INH NEB SOLN NEB PRN (19:05)
--- NOTE | 2020-12-15 19:14 | HPEPDOC ---
General Date of Admission 12/15/20 Date of Service: Dec 15, 2020 Chief Complaint The patient is a 55-year-old male admitted with a reason for visit of Cp/Sob. Source: Patient History of Present Illness 55-year-old male with insulin-dependent diabetes, rheumatoid arthritis, hyp ertension, hyperlipidemia, GERD, COPD, smoker, alcohol use disorder presented to the emergency room with 1 day history of severe nausea, vomiting, unable to keep any food down, chest pain and shortness of breath. As per EMS patient was noted to be very restless and uncomfortable and when they checked the blood sugar it was high. Patient reports that he is glucometer broke down 2 days ago and so he has not been taking his insulin as he has not been able to check his blood sugar. On arrival to the ED patient's blood glucose level was 930. Patient was in severe high anion gap metabolic acidosis with a pH of 6.97, anion gap of 30. Patient was also in acute renal failure with a creatinine of 4.4 and hyperkalemic with a potassium of 7.1. Patient's EKG showed atrial fibrillation with controlled rate. Patient was complaining of severe back pain which he rated at 8/10 in intensity, sharp aching in nature . Because of the severe pain he was unable to sit or lay down straight in 1 position . He was constantly moving around in bed and very restless. Patient was admitted for DKA, acute r enal failure, hyperkalemia, severe high anion gap metabolic acidosis with lactic acidosis. Home Medications Scheduled Amlodipine Besylate (Amlodipine Besylate) 5 Mg Tablet, 5 MG PO DAILY, (Reported) Aspirin (Aspirin EC) 81 Mg Tablet.dr, 81 MG PO DAILY, (Reported) Atorvastatin Calcium (Atorvastatin Calcium) 40 Mg Tablet, 40 MG PO QHS, (Reported) Fluticasone Furoate (Arnuity Ellipta) 200 Mcg Blst.w.dev, 1 PUFF INH DAILY, (Reported) Folic Acid (Folic Acid) 1 Mg Tablet, 1 MG PO DAILY, (Reported) Insulin Glargine,Hum.rec.anlog (Basaglar Kwikpen U-100) 100 Unit/1 Ml Insuln.pen, 20 UNIT SC QAM, (Reported) Insulin Glargine,Hum.rec.anlog (Basaglar Kwikpen U-100) 100 Unit/1 Ml Insuln.pen, 40 UNIT SC QHS, (Reported) Insulin Lispro (Admelog) 100 Unit/1 Ml Vial, 10 UNIT SC AC, (Reported) Leflunomide (Leflunomide) 20 Mg Tablet, 20 MG PO DAILY, (Reported) Metoprolol Tartrate (Metoprolol Tartrate) 50 Mg Tablet, 50 MG PO BID, (Reported) Omeprazole (Omeprazole) 40 Mg Capsule.dr, 40 MG PO DAILY, (Reported) Pregabalin (Lyrica) 300 Mg Capsule, 300 MG PO BID, (Reported) Sertraline Hcl (Zoloft) 100 Mg Tablet, 100 MG PO DAILY, (Reported) Zolpidem Tartrate (Zolpidem Tartrate) 10 Mg Tablet, 10 MG PO QHS, (Reported) Scheduled PRN Albuterol Sulfate (Albuterol Sulfate Hfa) 8.5 Gm Hfa.aer.ad, 2 PUFFS INH Q4H PRN for SOB/WHEEZING, (Reported) Tadalafil (Cialis) 5 Mg Tablet, 5 MG PO ASDIRECTED PRN for ERECTILE DYSFUNCTION, (Reported) Tizanidine HCl (Tizanidine HCl) 4 Mg Tablet, 4 MG PO Q8H PRN for SPASMS, (Reported) Allergies Coded Allergies: diphenhydramine (Verified Allergy, Intermediate, ITCHING, 01/26/20) Past Medical History Medical History Rheumatoid arthritis, Diabetes, CKD stage III, COPD, hypertension type 1, hyperlipidemia, depression, anxiety, glaucoma, history of alcohol abuse, GERD, back pain Surgical History Cardiac catheterization, carpal tunnel release, history of cyst removal from the back Family History Son has hypertension 1 sister with cancer, another sister with heart transplant and rheumatoid arthritis Social History * Smoker: current smoker Alcohol: heavy Drugs: cocaine, marijuana A-FIB/CHADSVASC A-FIB History Current/History of A-Fib/PAF?: No Current PO Anticoag Therapy: No Review of Systems Constitutional: Denies: Chills, Fever, Night Sweats Eyes: Denies: Pain, Vision change ENT: Denies: Head Aches, Ear Pain, Dysphagia Skin: Denies: Rash, Lesions, Breakdown Pulmonary: Reports: Dyspnea Cardiovascular: Reports: Chest Pain; Denies: Palpitations, Orthopnea, Paroxysmal Noc. Dyspnea, Lt Headedness Gastrointestinal: Reports: Nausea, Vomiting, Abdominal Pain Genitourinary: Denies: Dysuria, Frequency, Incontinence, Retention Hematologic: Denies: Bruising, Bleeding Excessively Musculoskeletal: Reports: Back Pain Physical Examination General Exam: Positive: Alert, Cooperative, Mild Distress Eye Exam: Positive: PERRLA, Conjunctiva & lids normal, EOMI; Negative: Sclera icteric ENT Exam: Positive: Atraumatic, Mucous membr. moist/pink, Pharynx Normal Neck Exam: Positive: Supple; Negative: JVD, thyromegaly Chest Exam: Positive: Clear to auscultation, Normal air movement Heart Exam: Positive: Rate Normal, Irregular Rhythm, Normal S1, Normal S2; Negative: Murmurs, Rubs Abdomen Exam: Positive: Normal bowel sounds, Soft, Tenderness Extremity Exam: Negative: Clubbing, Cyanosis, Edema Skin Exam: Positive: Nl turgor and temperature; Negative: Breakdown, Lesion Neuro Exam: Positive: Normal Speech, Strength at 5/5 X4 ext, Normal Tone Psych Exam: Positive: Memory Intact, Oriented x 3 Vital Signs Vital Signs Date Time Temp Pulse Resp B/P (MAP) Pulse Ox O2 Delivery O2 Flow Rate FiO2 12/15/20 16:50 3.0 12/15/20 16:47 71 100 12/15/20 16:38 97.5 30 110/56 (74) Nasal Cannula Laboratory Data Labs 24H Laboratory Tests 2 12/15/20 15:37: POC Glucose (Misc Panel) > 700*H, POC Sodium (Misc Panel) 119*L, POC Potassium (Misc Panel) 6.8*H, POC Chloride (Misc Panel) 92L, POC Total CO2 (Misc Panel) 8.0L, POC Blood Urea Nitrogen (Misc Panel 82H, POC Ionized Calcium (Misc Panel) 2.9*L, POC Creatinine (Misc Panel) 4.2H, POC Hematocrit (Misc Panel) 41.0 12/15/20 15:40: POC Troponin I (Misc) 0.74H, Blood Gas Bicarbonate Standard 6.6L, Arterial Blood pH 6.977*L, Arterial Blood Partial Pressure CO2 18.4*L, Arterial Blood Partial Pressure O2 146.8H, Arterial Blood Total CO2 4.8L, Arterial Blood HCO3 4.2L, Arterial Blood Base Excess -25.9L, Arterial Blood Oxygen Saturation 96.3 12/15/20 15:41: Immature Granulocyte % (Auto) 1.9, Neutrophils (%) (Auto) 77.5H, Lymphocytes (%) (Auto) 8.3L, Monocytes (%) (Auto) 11.7H, Eosinophils (%) (Auto) 0.1, Basophils (%) (Auto) 0.5, Neutrophils # (Auto) 10.7H, Lymphocytes # (Auto) 1.1L, Monocytes # (Auto) 1.6H, Eosinophils # (Auto) 0.0, Basophils # (Auto) 0.1, Nucleated Red Blood Cells % (auto) 0.0, Anion Gap 30H, Glomerular Filtration Rate 14.8L, Osmolality 350H, Lactic Acid Level 9.4*H, Calcium Level 8.5, Phosphorus Level 10.8H, Magnesium Level 2.1, Total Bilirubin 0.8, Direct Bilirubin 0.3H, Aspartate Amino Transf (AST/SGOT) 39H, Alanine Aminotransferase (ALT/SGPT) 25, Alkaline Phosphatase 93, Total Protein 6.4, Albumin 3.4, Albumin/Globulin Ratio 1.1, Lipase 27L, Thyroid Stimulating Hormone (TSH) 1.510, Ethyl Alcohol Level < 0.003 12/15/20 17:27: Coronavirus (COVID-19)(PCR) NEGATIVE, Influenza Type A (RT-PCR) NEGATIVE, Influenza Type B (RT-PCR) NEGATIVE, Respiratory Syncytial Virus (PCR) NEGATIVE CBC/BMP Laboratory Tests 12/15/20 15:41 Microbiology Microbiology 12/15/20 Blood Culture, Received Pending 12/15/20 Blood Culture, Received Pending Assessment/Plan 55-year-old male with insulin-dependent diabetes, rheumatoid arthritis, hypertension, hyperlipidemia, GERD, COPD, smoker, alcohol use disorder presented to the emergency room with 1 day history of severe nausea, vomiting, unable to keep any food down, chest pain and shortness of breath. As per EMS patient was noted to be very restless and uncomfortable and when they checked the blood sugar it was high. Patient reports that he is glucometer broke down 2 days ago and so he has not been taking his insulin as he has not been able to check his blood sugar. On arrival to the ED patient's blood glucose level was 930. Patient was in severe high anion gap metabolic acidosis with a pH of 6.97, anion gap of 30. Patient was also in acute renal failure with a creatinine of 4.4 and hyperkalemic with a potassium of 7.1. Patient's EKG showed atrial fibrillation with controlled rate.Patient was admitted for DKA, acute renal failure, hyper kalemia, severe high anion gap metabolic acidosis with lactic acidosis. DKA Patient started on insulin infusion, fingerstick every hour Received 2.8 L bolus normal saline will start on saline 200 cc/h. Once blood glucose is at 200 will change IV fluids to dextrose half-normal saline and continue IV fluids till gap is closed and bicarb is over 20 Patient received 1 ampoule of 50 cc bicarb. Basic metabolic panel every 4 hours along with VBG Severe high anion gap metabolic acidosis Due to diabetic ketoacidosis and lactic acidosis Patient received bicarb, IV fluid Getting insulin infusion Lactic acidosis Likely secondary to severe dehydration with acute renal failure Acute renal failure on chronic kidney disease stage III with hyperkalemia Baseline creatinine is about 1.5 Due to severe dehydration. Getting IV fluid Patient got calcium gluconate and insulin bolus and Kayexalate for hyperkalemia. We will check basic metabolic panel now. COPD We will continue a steroid inhaler and albuterol as needed GERD We will continue PPI Hyperlipidemia On statin Hypertension Patient was hypotensive when he came in because of severe acidosis dehydration We will hold antihypertensives for now Anxiety and depression Continue sertraline Chronic back pain On tizanidine as needed, Lyrica will restart when able to take p.o. will give one-time dose now dose of IV Tylenol. No NSAIDs. Plan / VTE VTE Prophylaxis Ordered?: Yes Mera Kolb MD Dec 15, 2020 19:13
[2020-12-15] MEDS ORDERED: ACETAMINOPHEN *IV* 1,000 MG in IV 1 EA IV ONE (19:15)
[2020-12-15 19:31] LABS: VENOUS BASE EXCESS -26.5 (-2.0-2.0); VENOUS HCO3 6.3 MEQ/L (23.0-27.0); VENOUS O2 SATURATION 61.6 % (60.0-80.0); VENOUS PARTIAL PRESSURE CO2 35.8 mmHg (38.0-50.0); VENOUS PARTIAL PRESSURE O2 46.5 mmHg (30.0-50.0); VENOUS PH 6.865 UNITS (7.330-7.430); VENOUS STANDARD HCO3 5.8 MEQ/L; VENOUS TOTAL CO2 7.4 MEQ/L (24.0-28.0)
[2020-12-15 20:00] LABS: CALCIUM LEVEL 8.7 MG/DL (8.5-10.1); CREATININE FOR GFR 4.86 MG/DL (0.70-1.30); GLOMERULAR FILTRATION RATE 13.2 (>56); POTASSIUM SERUM 7.9 MEQ/L (3.5-5.1)
[2020-12-15] MEDS ORDERED: HEPARIN SOD (PORCINE) 5000UNITS/ML 1ML VIAL/SYRINGE SQ SCH (21:00)
[2020-12-15] MEDS ORDERED: CALCIUM GLUCONATE 1,000 MG in D5W MINI-BAG PLUS 100 ML IV ONE (21:00)
[2020-12-15] MEDS ORDERED: PANTOPRAZOLE 40MG VIAL (C9113 PER 1) IV SCH (21:00)
[2020-12-15] MEDS: PANTOPRAZOLE 40MG VIAL (C9113 PER 1) IV SCH (21:00)
--- NOTE | 2020-12-15 21:41 | IPNPDOC ---
Text Note Date of Service The patient was seen on 12/15/20. NOTE Time of service 8:50pm I was informed by RN Xi that the patient appears to be very anxious and tachypneic also contacted me to inform me that she has ordered Bicarb and consulted for emergent dialysis At the time of my assessment the patient was alert, his verbal response to questions was slow but he denied having pain and knew we were in the hospital; he was requesting water. #DKA -c/w current management #SORAIDA on CKD 3- per / fide #Hyperkalemia - c/w current management #Alcohol abuse - [facility] order set #Elevated troponin (possibly silent TN or due to reduced clearance of troponin in the setting of SORAIDA) - trend troponins / f/u lipid panel and Echo in the morning LATE ENTRY 10:55PM #Suspected UGIB The patient's RN called me to inform me that he has had 2 bloody BMs. The pt has a hx of alcohol abuse therefore I suspect this may be de to PUD, esophageal varices, gastric or duodenal varices, or alcoholic erosive gastritis. Plan: NPO to reduced splanchnic blood flow / ask RNs to place more 2 large bore IVs / start PPI 40mg IV BID, octreotide (to reduce splanchnic blood flow, inhibit gastric acid secretion and for gastric cytoprotective effects) and Ceftriaxone / add on type & screen & iron studies to admission labs / f/u Hg Q6H and keep Hg >7/ we will ask the day time team to consult GI for EGD +/- C- scope in the morning LATE ENTRY 11:11pm ordered Zosyn, Metronidazole & CT of the abdomen and pelvis and will hold off dialyzing the pt for now bc he is very dehydrated. I will d/c the Ceftriaxone and order a UDS as well. LATE ENTRY 11:39PM Per d/w the acute elevation in Troponin is likely due to being acutely ill rather than ACS; there is no indication for blood thinners or thrombolysis while the patient is acutely ill and having a GI bleed. LATE ENTRY 12:47AM #Paroxysmal A Fib Per d/w the patient's RN Roman the patient is having episodes of SR and alternating rate controlled Afib CHADSVASC score is 2 but he can't receive AC bc of the GI bleed Plan: c/w current management LATE ENTRY 100AM Reviewed CT scan report #Hepatic steatosis #Mild perinephric stranding may be due to pyelonephritis; so I will ask RN to perform straight cath to obtain UA #Excess fluid in the colon - will ask the day time team to discuss these findings with GI or Gen Surg LATE ENTRY 3:17AM #Hyperkalemia EKG reviewed w slightly peaked T waves & repolarization changes but no acute ST elevation Despite 1 dose of Kayexalate and 3 BMs the K is still high Plan: give additional dose of Kayexalate VS,Fishbone, I+O VS, Fishbone, I+O Laboratory Tests 12/15/20 15:41 12/15/20 19:12 Vital Signs Date Time Temp Pulse Resp B/P (MAP) Pulse Ox O2 Delivery O2 Flow Rate FiO2 12/15/20 16:50 3.0 12/15/20 16:47 71 100 12/15/20 16:38 97.5 30 110/56 (74) Nasal Cannula IVAN ALLEN MD Dec 15, 2020 21:41
[2020-12-15] MEDS: SODIUM BICARBONATE 150 MEQ in STERILE WATER LITER BAG 1,000 ML IV SCH (22:18)
[2020-12-15 22:33] LABS: VENOUS BASE EXCESS -25.1 (-2.0-2.0); VENOUS HCO3 6.6 MEQ/L (23.0-27.0); VENOUS O2 SATURATION 88.7 % (60.0-80.0); VENOUS PARTIAL PRESSURE CO2 32.9 mmHg (38.0-50.0); VENOUS PARTIAL PRESSURE O2 80.8 mmHg (30.0-50.0); VENOUS STANDARD HCO3 6.8 MEQ/L; VENOUS TOTAL CO2 7.6 MEQ/L (24.0-28.0)
[2020-12-15 22:43] LABS: BASO % 0.4 % (0.0-1.0); EOS % 0.1 % (0.0-3.0); HEMATOCRIT 39.2 % (42.0-52.0); HEMOGLOBIN 12.1 g/dl (13.5-17.5); LYMPH # 1.6 10^3/uL (1.5-5.0); LYMPH % 16.1 % (24.0-44.0); MEAN CORPUSCULAR HEMOGLOBIN 32.5 pg (27.0-33.0); MEAN CORPUSCULAR HGB CONC 30.9 g/dl (32.0-36.5); MEAN CORPUSCULAR VOLUME 105.4 fl (80.0-96.0); MONO # 0.2 10^3/uL (0.0-0.8); MONO % 1.5 % (2.0-8.0); NEUTROPHILS # 7.8 10^3/uL (1.5-8.5); PLATELET COUNT, AUTOMATED 153 10^3/uL (150-450); RED BLOOD COUNT 3.72 10^6/uL (4.30-6.10); WHITE BLOOD COUNT 9.8 10^3/uL (4.0-10.0)
[2020-12-15] MEDS ORDERED: OCTREOTIDE ACETATE 100MCG/ML VIAL (J2354 PER 25MCG) IV ONE (23:00)
[2020-12-15] MEDS ORDERED: cefTRIAXone SOD 1 GM in D5W MINI-BAG PLUS 50 ML IV SCH (23:00)
[2020-12-15] MEDS: PIPERACILLIN/TAZOBACTAM SOD 2.25 GM in D5W MINI-BAG PLUS 50 ML IV SCH (23:07)
[2020-12-15] MEDS: THIAMINE 200MG 2ML VIAL IV SCH (23:08)
[2020-12-15 23:10] LABS: BEDSIDE GLUCOSE CONFIRMATION 747 MG/DL (LESS THAN 200); BLOOD UREA NITROGEN 79 MG/DL (7-18); CALCIUM LEVEL 7.7 MG/DL (8.5-10.1); CARBON DIOXIDE LEVEL 8 MEQ/L (21-32); CHLORIDE LEVEL 90 MEQ/L (98-107); CHOLESTEROL LEVEL 174 MG/DL (<200); CHOLESTEROL RISK RATIO 3.954 (<5); CREATININE FOR GFR 5.16 MG/DL (0.70-1.30); GLOMERULAR FILTRATION RATE 12.3 (>56); GLUCOSE, FASTING 747 MG/DL (70-100); HDL CHOLESTEROL 44 MG/DL (>40); NON-HDL-C 130 MG/DL; POTASSIUM SERUM 7.1 MEQ/L (3.5-5.1); SODIUM LEVEL 127 MEQ/L (136-145); TRIGLYCERIDES LEVEL 402 MG/DL (<150); TROPONIN I 6.89 NG/ML (< 0.10)
[2020-12-16] VITALS (40 sets, daily range): BP systolic 86–126; BP diastolic 46–62
--- NOTE | 2020-12-16 00:04 | CR ---
CRITICAL CARE NOTE/NEPHROLOGY CONSULTATION DATE: 12/15/2020 CONSULTATION REQUESTED BY: Mera Kolb M.D. REASON FOR CONSULTATION: Acute renal failure, hyperkalemia and severe acidosis. HISTORY OF PRESENT ILLNESS: I was called for an urgent consult to see Mr. Posada this evening due to acute renal failure, severe hyperkalemia and metabolic acidosis. Mr. Posada is a 55-year-old gentleman with a history of insulin dependent diabetes, rheumatoid arthritis, hypertension, COPD with active smoking, history of alcohol use and hyperlipidemia. Apparently he has been sick for a few days and not taking insulin. He reports recurrent vomiting, abdominal and back pain, some loose stools and not eating or drinking much. On arrival to the Emergency Room, his blood sugar was 930, potassium was 7.1 and blood gas showed pH of 6.9. He is admitted to the Intensive Care Unit. He has received multiple fluid boluses of normal saline and sodium bicarbonate. His repeat labs showed worsening acidosis and hyperkalemia, that was the reason for nephrology consultation when his repeat labs showed worsening instead of improving his labs. The patient has been very restless since he came to the Emergency Room and has been complaining of back pain. At the time of my arrival to the Intensive Care Unit, he was still quite anxious and restless. He complains of back pain and is currently receiving intravenous Tylenol. He had a small bowel movement in my presence and there was some bright red blood in it. Patient reports that he has been vomiting even this morning and had a couple of loose stools today. PAST MEDICAL HISTORY: Significant for: 1. Insulin requiring diabetes. 2. Rheumatoid arthritis. 3. COPD. 4. Mild stage 3 of chronic kidney disease. 5. Hypertension. 6. Hyperlipidemia. 7. Depression. 8. Anxiety. 9. Glaucoma. 10.History of gastroesophageal reflux disease. 11.History of back pain. 12.History of alcohol use. PAST SURGICAL HISTORY: Significant for: 1. Cardiac catheterization. 2. Carpal tunnel release. 3. History of cyst removal from the back. FAMILY HISTORY: Significant for hypertension, cancer in his sister and rheumatoid arthritis. PERSONAL AND SOCIAL HISTORY: Patient lives with his girlfriend. He is an active smoker and also has heavy use of alcohol, there is use or marijuana and cocaine. ALLERGIES: Patient has allergy to Diphenhydramine. HOME MEDICATIONS: Included: 1. Amlodipine 5 mg daily. 2. Aspirin 81 mg daily. 3. Atorvastatin 40 mg daily. 4. Arnuity Ellipta 200 mcg one inhalation daily. 5. Folic Acid 1 mg daily. 6. Basaglar Insulin 20 units in a.m. and 40 units at bedtime. 7. Admelog insulin per sliding scale. 8. Leflunomide 20 mg daily. 9. Metoprolol 50 mg b.i.d. 10.Omeprazole 40 mg daily. 11.Pregabalin 300 mg b.i.d. 12. Sertraline 100 mg daily. 13.Zolpidem 10 mg at bedtime. 14.Albuterol inhaler as needed. 15.Cilias 5 mg as needed for erectile dysfunction. 16.Tizanidine 4 mg as needed for back spasm. REVIEW OF SYSTEMS: This is a very anxious and restless gentleman, who apparently has been restless and anxious since arrival to the Emergency Room this afternoon. He has been feeling sick for a few days and has not been able to eat or drink. In addition, he stopped taking his insulin and probably other medications too. Ears, nose and throat are unremarkable. He denies any headache. Cardiovascular system is significant for shortness of breath. He has slightly elevated troponin in the Emergency Room. He also reported chest pain on arrival to the Emergency Room, which is now slightly better. Respiratory system is significant for shortness of breath, but denies any cough or hemoptysis. GI system is significant for vomiting, abdominal pain and loose stools. He had some bright red blood in his stool. Musculoskeletal system is significant for back pain which he rates 8/10. system is significant for decreased urine output. He denies any kidney stones history or flank pain. Endocrine system is significant for insulin requiring diabetes and no history known for thyroid problems. Hematological system is negative for easy bruising or excessive bleeding. Psychosocial system is significant for depression and anxiety. Neurological system is negative for seizures or stroke. Skin is negative for rash or ulcers. PHYSICAL EXAMINATION: GENERAL: A middle-age gentleman who looks quite anxious and restless in the bed. He is constantly turning and tossing. He is pale looking and quite tachypneic. VITALS: Temperature 97.5 degrees Fahrenheit, heart rate 72 per minute, respiratory rate 32 per minute, blood pressure 110/56 mmHg, oxygen saturation 91% on 4 liters oxygen. HEENT: Head atraumatic. There is no oral thrush or ulcers. Oral mucosa somewhat dry. HEART: Heart sounds are irregular in rhythm. LUNGS: Good bilateral air entry. ABDOMEN: Somewhat full and right upper quadrant and lower quadrant tenderness is noticed. Bowel sounds are present. EXTREMITIES: Have no cyanosis or clubbing. He does not have any peripheral edema. NEUROLOGIC: He is awake and able to answer questions. He is moving all his limbs. LABORATORY DATA: His initial blood gas showed pH of 6.97, pCO2 of 18.4, pO2 of 146, bicarb 4.2 and oxygen saturation 96%. Most recent venous blood gas showed a pH of 6.9, pCO2 of 32.9, pO2 of 80.8 and bicarb now is 6.6. His chemistry initially showed a sodium level 120, potassium 7.1, CO2 6, BUN 74 and creatinine 4.4. Glucose 930 and osmolarity 350. Calcium 8.5 and phosphorus 10.8. AST 39, ALT 25 and alkaline phosphatase 93. Albumin level 3.4. Lipase level 27. TSH 1.5. A repeat chemistry at 7:12 p.m. showed sodium 124, potassium 7.9, CO2 8, chloride 87, BUN 77 and creatinine 4.86, glucose 850. Lactic acid level initially was 9.4 and a repeat one is 11.2. Alcohol level was less than 0.003. IMAGING STUDIES: His chest x-ray was negative for any infiltrate or effusion and no other imaging was done. PROBLEMS: 1. Acute renal failure: Most likely this is a result of diabetic ketoacidosis with severe dehydration. I am also concerned about his abdominal pain and suspect there is some intraabdominal problem is going on. He has received some I.V. normal saline at least 3 liters. I would strongly recommend to continue with sodium bicarbonate infusion for now in order to try to correct his acidosis. I am getting a CT scan of his abdomen and pelvis to rule out any possibility of colitis. He does have a history of cocaine use and may have ischemic bowel. His hyperkalemia, acidosis and lactic acid levels are all unexpectedly high despite treatment and I.V. fluid hydration. Tissue ischemia is suspected. 2. Hyperkalemia: Patient has worsening hyperkalemia despite the treatment and sodium bicarbonate infusion. I suspect that he has some underlying etiology for it. A CAT of the abdomen and pelvis without I.V. contrast is being ordered. Will continue with sodium bicarbonate drip in order to try to correct his acidosis. 3. Diabetic ketoacidosis and lactic acidosis: Patient has not been using insulin for at least a few days. He is currently now on insulin drip for hyperglycemia in addition to aggressive I.V. fluid hydration. I will also cover him with broad spectrum antibiotics for possible colitis with Zosyn and Metronidazole. 4. Back pain and abdominal pain: Patient is constantly complaining of pain. I suspect intraabdominal issues like bowel ischemia. He also reports that he fell a couple of days ago at home and may have some injury. We will see what the CAT scan of the abdomen and pelvis shows; await for those results. At this point, patient is quite unstable and needs continued aggressive I.V. fluid hydration. I will reevaluate him again in a few hours yarn spooler and then make a decision for any changes. At this point, dialysis is probably not appropriate as patient is still quite dehydrated and very unstable without knowing the underlying cause. Thank you for involving me in the care of Mr. Posada. I will follow him along with you. 96 minutes of critical care time was spent, during which no procedures were performed.
[2020-12-16 00:25] LABS: VENOUS BASE EXCESS -21.4 (-2.0-2.0); VENOUS HCO3 9.5 MEQ/L (23.0-27.0); VENOUS O2 SATURATION 70.4 % (60.0-80.0); VENOUS PARTIAL PRESSURE O2 51.3 mmHg (30.0-50.0); VENOUS PH 6.982 UNITS (7.330-7.430); VENOUS STANDARD HCO3 8.6 MEQ/L; VENOUS TOTAL CO2 10.7 MEQ/L (24.0-28.0)
[2020-12-16 00:26] LABS: FERRITIN 2415 NG/ML (26-388); IRON (FE) 105 UG/DL (65-175); NT-PRO BNP 2859 PG/ML (<125); PERCENT SATURATION 43.2 % (19.7-50.0); TOTAL IRON BINDING CAPACITY 243 UG/DL (250-450)
--- NOTE | 2020-12-16 00:37 | REPVR ---
PROCEDURE INFORMATION: Exam: CT Abdomen And Pelvis Without Contrast Exam date and time: 12/15/2020 10:38 PM Age: 55 years old Clinical indication: Other: Dka, diarrhea TECHNIQUE: Imaging protocol: Computed tomography of the abdomen and pelvis without contrast. Radiation optimization: All CT scans at this facility use at least one of these dose optimization techniques: automated exposure control; mA and/or kV adjustment per patient size (includes targeted exams where dose is matched to clinical indication); or iterative reconstruction. COMPARISON: 1. CT ABD PELVIS WITH CONTRAST 2020-08-13 17:[address] Chest with contrast 2020-08-13 17:40 FINDINGS: Limitations: Study is limited by the absence of contrast. Liver: Hepatic steatosis. Gallbladder and bile ducts: Normal. No calcified stones. No ductal dilation. Pancreas: Normal. No ductal dilation. Spleen: Normal. No splenomegaly. Adrenal glands: Normal. No mass. Kidneys and ureters: Mild perinephric stranding. Renal parenchymal atrophy. Stomach and bowel: Unremarkable. No obstruction. No mucosal thickening. Appendix: No evidence of appendicitis. Intraperitoneal space: Unremarkable. No free air. No significant fluid collection. Vasculature: Unremarkable. No abdominal aortic aneurysm. Lymph nodes: Unremarkable. No enlarged lymph nodes. Urinary bladder: Incomplete bladder distension with mild wall thickening. Reproductive: Unremarkable as visualized. Bones/joints: Subacute to chronic multiple rib fractures. Soft tissues: Unremarkable. IMPRESSION: Excess fluid in the colon. Electronically signed by: Wilfrid Briscoe On 12/16/2020 00:36:47 AM
[2020-12-16] MEDS ORDERED: OCTREOTIDE ACETATE 1,200 MCG in NS 238.8 ML IV SCH (01:00)
[2020-12-16] MEDS: FOLIC ACID 1 MG in NS 50 ML IV SCH (01:15)
[2020-12-16] MEDS: metroNIDAZOLE 500 MG in IV 1 EA IV SCH ×2 (01:17→08:39)
[2020-12-16 02:07] LABS: CALCIUM LEVEL 7.2 MG/DL (8.5-10.1); CREATININE FOR GFR 5.21 MG/DL (0.70-1.30); GLOMERULAR FILTRATION RATE 12.2 (>56); POTASSIUM SERUM 6.9 MEQ/L (3.5-5.1); TROPONIN I 8.76 NG/ML (< 0.10)
[2020-12-16] MEDS ORDERED: SOD POLYSTYRENE SULFONATE SUSP 15 GM/60 ML UD PO ONE (03:15)
[2020-12-16] MEDS: ONDANSETRON 4MG/2ML VIAL IV PRN ×2 (04:09→20:44)
[2020-12-16] MEDS: SODIUM BICARBONATE 150 MEQ in STERILE WATER LITER BAG 1,000 ML IV SCH (04:10)
[2020-12-16] MEDS: ACETAMINOPHEN 650MG ER TAB (TYLENOL ARTHRITIS) PO PRN ×2 (04:47→12:25)
[2020-12-16 05:05] LABS: VENOUS BASE EXCESS -4.5 (-2.0-2.0); VENOUS HCO3 21.2 MEQ/L (23.0-27.0); VENOUS O2 SATURATION 84.2 % (60.0-80.0); VENOUS PARTIAL PRESSURE CO2 41.6 mmHg (38.0-50.0); VENOUS PARTIAL PRESSURE O2 52.9 mmHg (30.0-50.0); VENOUS PH 7.326 UNITS (7.330-7.430); VENOUS STANDARD HCO3 20.5 MEQ/L; VENOUS TOTAL CO2 22.5 MEQ/L (24.0-28.0)
[2020-12-16 05:09] LABS: HEMOGLOBIN 11.2 g/dl (13.5-17.5); MEAN CORPUSCULAR HEMOGLOBIN 32.7 pg (27.0-33.0); MEAN CORPUSCULAR VOLUME 93.6 fl (80.0-96.0); PLATELET COUNT, AUTOMATED 103 10^3/uL (150-450); RED BLOOD COUNT 3.42 10^6/uL (4.30-6.10); WHITE BLOOD COUNT 3.3 10^3/uL (4.0-10.0)
--- NOTE | 2020-12-16 05:48 | ECGEPIP ---
[facility] - ED Test Date: 2020-12-15 Pat Name: POPPY RENEE Department: Room: - Gender: Male [employer]: : 1965 Requested By: Alisa Lunsford Order Number: [id number] Reading MD: Jay Blake Measurements Intervals [place] Rate: 52 P: RI: QRS: 13 QRSD: 98 T: 28 QT: 432 QTc: 401 Interpretive Statements Atrial fibrillation with slow ventricular response RHYTHM/RATE CHANGE COMPARED TO 08/13/20 Electronically Signed on 12-16-2020 5:48:07 EDT by Jay Blake
[2020-12-16 06:41] LABS: LYMPHOCYTES 22 % (16-44); MONOCYTES 2 % (0-5); NEUTROPHILS 75 % (28-66); PLATELET ESTIMATE DECREASED (NORMAL)
[2020-12-16] MEDS: PIPERACILLIN/TAZOBACTAM SOD 2.25 GM in D5W MINI-BAG PLUS 50 ML IV SCH ×3 (07:07→23:04)
[2020-12-16 07:18] LABS: CALCIUM LEVEL 6.9 MG/DL (8.5-10.1); CREATININE FOR GFR 5.04 MG/DL (0.70-1.30); GLOMERULAR FILTRATION RATE 12.7 (>56); MAGNESIUM LEVEL 1.4 MG/DL (1.8-2.4); PHOSPHORUS LEVEL 4.2 MG/DL (2.5-4.9); POTASSIUM SERUM 3.8 MEQ/L (3.5-5.1); TROPONIN I 18.4 NG/ML (< 0.10)
[2020-12-16] MEDS: BUDESONIDE 180MCG INHALER (PULMICORT FLEXHALER) INH SCH ×2 (08:00→19:13)
[2020-12-16] MEDS: ASPIRIN 81MG ENTERIC TABLET PO SCH ×2 (08:39→09:00)
[2020-12-16] MEDS: PANTOPRAZOLE 40MG VIAL (C9113 PER 1) IV SCH ×2 (08:39→20:16)
[2020-12-16 08:51] LABS: FOLATE > 24.0 NG/ML (>5.4); VITAMIN B12 LEVEL 485 PG/ML (247-911)
[2020-12-16] MEDS ORDERED: ENOXAPARIN 40MG/0.4ML SYRINGE (J1650 PER 10MG) SC SCH (09:00)
[2020-12-16] MEDS ORDERED: MAG SULF 1GM/100ML (MAG RUN) 1 GM in IV 1 EA IV ONE (09:00)
--- NOTE | 2020-12-16 09:02 | ECGEPIP ---
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 Order Number: [id number] Reading MD: Dirk Mathews Measurements Intervals [place] Rate: 75 P: [place]: QRS: 2 QRSD: 124 T: 21 QT: 410 QTc: 457 Interpretive Statements underlying atrial fibrillation with controlled ventricular response Leftward axis Incomplete RBBB Nonspecific ST/T wave abnormalities. Rhythm, axis, development of INTRAVENTRICULAR CONDUCTION DELAY and ST/T wave abnormalities from 08/13/20. Clinical correlation advised Electronically Signed on 12-16-2020 9:02:36 EDT by Dirk Mathews
[2020-12-16] MEDS: INSULIN IV RATE CHANGE DOCUMENTATION ML/HR XX SCH ×4 (09:09→15:17)
[2020-12-16] MEDS ORDERED: NS 1,000 ML IV SCH (10:15)
--- NOTE | 2020-12-16 10:54 | IPNPDOC ---
Subjective Date Seen The patient was seen on 12/16/20. Subjective Chief Complaint/HPI Patient remains very sick though not as restless and uncomfortable as yesterday. Made 400 cc urine overnight. Not much since this morning. continues to have back pain and also complaining of left shoulder pain. No vomiting. Had 2 bloody bowel movements over night. Objective Physical Examination General Exam: Positive: Alert, Cooperative, Mild Distress Eye Exam: Positive: PERRLA, Conjunctiva & lids normal, EOMI; Negative: Sclera icteric ENT Exam: Positive: Atraumatic, Mucous membr. moist/pink, Pharynx Normal Neck Exam: Positive: Supple; Negative: JVD, thyromegaly Chest Exam: Positive: Clear to auscultation, Normal air movement Heart Exam: Positive: Rate Normal, Normal S1, Normal S2; Negative: Murmurs, Rubs Abdomen Exam: Positive: BS Hypoactive, Soft, Tenderness (left lower quadrant) Extremity Exam: Negative: Clubbing, Cyanosis, Edema Skin Exam: Positive: Nl turgor and temperature; Negative: Breakdown, Lesion Neuro Exam: Positive: Normal Speech, Strength at 5/5 X4 ext, Normal Tone Psych Exam: Positive: Memory Intact, Oriented x 3 Assessment /Plan Assessment 55-year-old male with insulin-dependent diabetes, rheumatoid arthritis, hypertension, hyperlipidemia, GERD, COPD, smoker, alcohol use disorder presented to the emergency room with 1 day history of severe nausea, vomiting, unable to keep any food down, chest pain and shortness of breath. As per EMS patient was noted to be very restless and uncomfortable and when they checked the blood sugar it was high. Patient reports that he is glucometer broke down 2 days ago and so he has not been taking his insulin as he has not been able to check his blood sugar. On arrival to the ED patient's blood glucose level was 930. Patient was in severe high anion gap metabolic acidosis with a pH of 6.97, anion gap of 30. Patient was also in acute renal failure with a creatinine of 4.4 and hyperkalemic with a potassium of 7.1. Patient's EKG showed atrial fibrillation with controlled rate.Patient was admitted for DKA, acute renal failure, hyperkalemia, severe high anion gap metabolic acidosis with lactic acidosis. DKA resolving Continue insulin infusion, fingerstick every hour Basic metabolic panel every 4 hours Acute respiratory failure with hypoxia on admission RR 26 to 28 and was needing 4 to 5 liters of oxygen since admission now needing 3 liters of oxygen GIB: patient had 2 bloody bowel movements overnight. CT abd and pelvis with increased fluid in the colon. consulted GI, discussed pt with Dr Burgos could be ischemic colitis from the hypotension, and has lactic acidosis, unlikely variceal bleed as with variceal bleed there will be significant drop in H/H will stop octreotide continue zosyn. Elevated troponin likely NSTEMI, patient is a diabetic so likely has some underlying CAD will not give any ASA as having GIB continue statin, will not give betablocker, pulse controlled, low BP. Severe high anion gap metabolic acidosis Due to diabetic ketoacidosis and lactic acidosis Patient received bicarb, bicarb infusion. now acidosis has improved. Lactic acidosis Likely secondary to severe dehydration with acute renal failure my also have ischemic colitis. Acute renal failure on chronic kidney disease stage III with hyperkalemia Baseline creatinine is about 1.5 hyperkalemia has improved. COPD We will continue a steroid inhaler and albuterol as needed GERD We will continue PPI Hyperlipidemia On statin Hypertension Patient is hypotensive We will hold antihypertensives for now Anxiety and depression Continue sertraline Chronic back pain On tizanidine as needed, Lyrica will restart when able to take p.o. Will use tylenol for pain control No NSAIDs. Plan/VTE VTE Prophylaxis Ordered?: Yes VS, I&O, 24H, Fishbone Vital Signs/I&O Vital Signs Date Time Temp Pulse Resp B/P (MAP) Pulse Ox O2 Delivery O2 Flow Rate FiO2 12/16/20 09:00 70 24 91/52 (65) 93 Nasal Cannula 3.0 12/16/20 08:00 98.7 I&O- Last 24 Hours up to 6 AM 12/16/20 05:59 Intake Total 2854 ml Output Total 303 ml Balance 2551 ml Laboratory Data 24H LABS Laboratory Tests 2 12/15/20 15:37: POC Glucose (Misc Panel) > 700*H, POC Sodium (Misc Panel) 119*L, POC Potassium (Misc Panel) 6.8*H, POC Chloride (Misc Panel) 92L, POC Total CO2 (Misc Panel) 8.0L, POC Blood Urea Nitrogen (Misc Panel 82H, POC Ionized Calcium (Misc Panel) 2.9*L, POC Creatinine (Misc Panel) 4.2H, POC Hematocrit (Misc Panel) 41.0 12/15/20 15:40: POC Troponin I (Misc) 0.74H, Blood Gas Bicarbonate Standard 6.6L, Arterial Blood pH 6.977*L, Arterial Blood Partial Pressure CO2 18.4*L, Arterial Blood Partial Pressure O2 146.8H, Arterial Blood Total CO2 4.8L, Arterial Blood HCO3 4.2L, Arterial Blood Base Excess -25.9L, Arterial Blood Oxygen Saturation 96.3 12/15/20 15:41: Immature Granulocyte % (Auto) 1.9, Neutrophils (%) (Auto) 77.5H, Lymphocytes (%) (Auto) 8.3L, Monocytes (%) (Auto) 11.7H, Eosinophils (%) (Auto) 0.1, Basophils (%) (Auto) 0.5, Neutrophils # (Auto) 10.7H, Lymphocytes # (Auto) 1.1L, Monocytes # (Auto) 1.6H, Eosinophils # (Auto) 0.0, Basophils # (Auto) 0.1, Nucleated Red Blood Cells % (auto) 0.0, Anion Gap 30H, Glomerular Filtration Rate 14.8L, Estimated Mean Plasma Glucose 174H, Hemoglobin A1c 7.7, Osmolality 350H, Lactic Acid Level 9.4*H, Calcium Level 8.5, Phosphorus Level 10.8H, Magnesium Level 2.1, Total Bilirubin 0.8, Direct Bilirubin 0.3H, Aspartate Amino Transf (AST/SGOT) 39H, Alanine Aminotransferase (ALT/SGPT) 25, Alkaline Phosphatase 93, Total Protein 6.4, Albumin 3.4, Albumin/Globulin Ratio 1.1, Lipase 27L, Thyroid Stimulating Hormone (TSH) 1.510, Ethyl Alcohol Level < 0.003 12/15/20 17:27: Coronavirus (COVID-19)(PCR) NEGATIVE, Influenza Type A (RT-PCR) NEGATIVE, Influenza Type B (RT-PCR) NEGATIVE, Respiratory Syncytial Virus (PCR) NEGATIVE 12/15/20 19:12: Blood Gas Bicarbonate Standard 5.8, Venous Blood pH 6.865L, Venous Blood Partial Pressure CO2 35.8L, Venous Blood Partial Pressure O2 46.5, Venous Blood Total Carbon Dioxide 7.4L, Venous Blood HCO3 6.3L, Venous Blood Oxygen Saturation 61.6, Venous Blood Base Excess -26.5L, Anion Gap 29H, Glomerular Filtration Rate 13.2L, Calcium Level 8.7 12/15/20 20:07: Lactic Acid Followup at 4 Hours 11.2*H 12/15/20 22:21: Blood Gas Bicarbonate Standard 6.8, Venous Blood pH 6.920L, Venous Blood Partial Pressure CO2 32.9L, Venous Blood Partial Pressure O2 80.8H, Venous Blood Total Carbon Dioxide 7.6L, Venous Blood HCO3 6.6L, Venous Blood Oxygen Saturation 88.7H, Venous Blood Base Excess -25.1L, Anion Gap 29H, Glomerular Filtration Rate 12.3L, Calcium Level 7.7L, Bedside Glucose Confirm (Misc) 747*H, Blood Gas Puncture Site UNKNOWN, Iron Level 105, Total Iron Binding Capacity 243L, Transferrin % Saturation 43.2, Ferritin 2415H, Troponin I 6.89*H, JL-Vpg-D-Type Natriuretic Peptide 2859H, Triglycerides Level 402H, Total Cholesterol 174, LDL Cholesterol , Non-HDL Cholesterol (LDL + VLDL) 130, Total HDL Cholesterol 44, Cholesterol/HDL Ratio 3.954, Vitamin B12 Level 485, Folate > 24.0 12/15/20 22:22: Immature Granulocyte % (Auto) 1.9, Neutrophils (%) (Auto) 80.0H, Lymphocytes (%) (Auto) 16.1L, Monocytes (%) (Auto) 1.5L, Eosinophils (%) (Auto) 0.1, Basophils (%) (Auto) 0.4, Neutrophils # (Auto) 7.8, Lymphocytes # (Auto) 1.6, Monocytes # (Auto) 0.2, Eosinophils # (Auto) 0.0, Basophils # (Auto) 0.0, Nucleated Red Blood Cells % (auto) 0.0 12/16/20 00:08: Bedside Glucose Confirm (Misc) 669*H, Blood Gas Puncture Site UNKNOWN, Blood Gas Bicarbonate Standard 8.6, Venous Blood pH 6.982L, Venous Blood Partial Pressure CO2 41.0, Venous Blood Partial Pressure O2 51.3H, Venous Blood Total Carbon Dioxide 10.7L, Venous Blood HCO3 9.5L, Venous Blood Oxygen Saturation 70.4, Venous Blood Base Excess -21.4L, Anion Gap 27H, Glomerular Filtration Rate 12.2L, Lactic Acid Level 9.9*H, Calcium Level 7.2L, Troponin I 8.76#*H 12/16/20 01:07: Bedside Glucose (Misc Panel) 545*H 12/16/20 02:14: Bedside Glucose (Misc Panel) 491H 12/16/20 03:59: Bedside Glucose (Misc Panel) 504*H 12/16/20 04:55: Bedside Glucose (Misc Panel) 497H 12/16/20 04:58: Neutrophils (%) (Auto) , Nucleated Red Blood Cells % (auto) 0.0, Neutrophils 75H , Band Neutrophils 1, Lymphocytes (Manual) 22, Monocytes (Manual) 2, Red Blood Cell Morphology NORMAL, Platelet Estimate DECREASED, Blood Gas Bicarbonate Standard 20.5, Venous Blood pH 7.326L, Venous Blood Partial Pressure CO2 41.6, Venous Blood Partial Pressure O2 52.9H, Venous Blood Total Carbon Dioxide 22.5L, Venous Blood HCO3 21.2L, Venous Blood Oxygen Saturation 84.2H, Venous Blood Base Excess -4.5L, Anion Gap 16, Glomerular Filtration Rate 12.7L, Lactic Acid Followup at 4 Hours 4.5*H, Calcium Level 6.9L, Phosphorus Level 4.2#, Magnesium Level 1.4L, Troponin I 18.40#*H 12/16/20 06:01: Bedside Glucose (Misc Panel) 405H 12/16/20 06:52: Bedside Glucose (Misc Panel) 441H 12/16/20 07:49: Bedside Glucose (Misc Panel) 450H 12/16/20 09:07: Bedside Glucose (Misc Panel) 371H 12/16/20 10:09: Bedside Glucose (Misc Panel) 350H CBC/BMP Laboratory Tests 12/15/20 15:41 12/15/20 19:12 12/15/20 22:21 12/15/20 22:22 12/16/20 00:08 12/16/20 04:58 Microbiology Microbiology 12/15/20 Stool Occult Blood (JOSEFA) - Final, Complete 12/15/20 Blood Culture, Received Pending 12/15/20 Blood Culture, Received Pending Mera Kolb MD Dec 16, 2020 10:54
[2020-12-16 11:03] LABS: HEMATOCRIT 32.1 % (42.0-52.0); HEMOGLOBIN 11.6 g/dl (13.5-17.5); MEAN CORPUSCULAR HEMOGLOBIN 32.7 pg (27.0-33.0); MEAN CORPUSCULAR HGB CONC 36.1 g/dl (32.0-36.5); MEAN CORPUSCULAR VOLUME 90.4 fl (80.0-96.0); PLATELET COUNT, AUTOMATED 102 10^3/uL (150-450); RED BLOOD COUNT 3.55 10^6/uL (4.30-6.10); WHITE BLOOD COUNT 2.1 10^3/uL (4.0-10.0)
--- NOTE | 2020-12-16 12:21 | IPN ---
PROGRESS NOTE DATE: 12/16/2020 Mr. Posada is seen this morning on his bedside. He is resting much better this morning compared to last evening, when he was very restless and anxious. He reports that his back pain and abdominal pain are slightly better. He still continues to have frequent loose stools. Nursing staff reports that he had at least two bowel movements this morning and four to five bowel movements last night. CT scan of the abdomen and pelvis did not really show any significant abnormality other than excess fluid in the colon. He has been on metronidazole and Zosyn since last evening. His diabetic ketoacidosis improved significantly this morning. He still remains on insulin drip and intravenous (IV) fluid with sodium bicarbonate infusion. PHYSICAL EXAMINATION: Temperature 98.7 degrees Fahrenheit, heart rate 70 per minute, respiratory rate 24 per minute, blood pressure 92/54 mmHg, and oxygen saturation 90% on 3 liters oxygen. Head is atraumatic. Neck supple, and jugular venous distention (JVD) difficult to be assessed. Heart sounds are regular and lungs with slightly diminished breath sounds at bases. Abdomen is soft and mildly tender. Bowel sounds are normal. Extremities without any cyanosis or clubbing. He still has no peripheral edema. Today's labs show WBC count 3.3, hemoglobin 11.2, and hematocrit 32. Platelets 103. Sodium is 131, potassium 3.8, chloride 92, CO2 of 23, BUN 86, and creatinine 5.04. Glucose is down to 482 and lactic acid level down to 4.5. His troponin is now up to 18.4. PROBLEMS: 1. Diabetic ketoacidosis. Ketoacidosis is improving, as he has been hydrated, and hyperglycemia has also improved with insulin drip. He has been on intravenous sodium bicarbonate drip. 2. Hyperkalemia and hyponatremia. His hyperkalemia corrected with improvement in his metabolic acidosis and lactic acidosis. He did make some urine also. Kidney function is slightly better. 3. Acute renal failure superimposed on chronic kidney disease. Patient was oliguric; however, now he has some urine output. We will recommend to continue with IV fluid hydration, as he is now becoming hypotensive. I would recommend to continue with 200 mL an hour of IV fluid, as patient has frequent loose stools and no evidence of volume overload so far. 4. Lactic acidosis. CT scan of abdomen and pelvis was done last night due to severe lactic acidosis. His CT scan did not show any significant problems. His lactic acid level has improved to 4.5 today. 5. Elevated troponin. He probably has an acute coronary event, as his troponin has gone up to 18.4, and he did have some chest pain on presentation. Hospitalist service is going to get cardiology input. 6. Hypotension. Blood pressure is now low, and patient should continue with aggressive IV fluid hydration. He is being monitored in intensive care unit anyway. It is quite possible that he might require pressors if his blood pressure remains persistently low.
[2020-12-16 12:37] LABS: CALCIUM LEVEL 6.9 MG/DL (8.5-10.1); CREATININE FOR GFR 5.15 MG/DL (0.70-1.30); GLOMERULAR FILTRATION RATE 12.4 (>56); POTASSIUM SERUM 3.3 MEQ/L (3.5-5.1); TROPONIN I 25.4 NG/ML (< 0.10)
[2020-12-16 13:06] LABS: ALBUMIN 2.5 GM/DL (3.2-5.2); BILIRUBIN,DIRECT 0.3 MG/DL (0.0-0.2); BILIRUBIN,TOTAL 0.9 MG/DL (0.2-1.0); TOTAL PROTEIN 4.8 GM/DL (6.4-8.2)
[2020-12-16] MEDS ORDERED: LEVEMIR (INSULIN DETEMIR) 1 UNITS/0.01ML SC ONE (14:00)
[2020-12-16] MEDS ORDERED: DEXTROSE 50% 50 ML SYRINGE IV PRN (16:30)
[2020-12-16] MEDS ORDERED: GLUCOSE 4GM CHEW TABLET PO PRN (16:30)
[2020-12-16] MEDS ORDERED: GLUCAGON INJ 1MG VIAL SC PRN (16:30)
[2020-12-16] MEDS: HumaLOG INSULIN (NovoLOG) PER UNIT SC SCH ×2 (17:14→21:00)
[2020-12-16 18:31] LABS: ACETONE/KETONE 15.23 MG/DL (<2.81)
[2020-12-16 18:46] LABS: HEMATOCRIT 34.4 % (42.0-52.0); HEMOGLOBIN 12.1 g/dl (13.5-17.5); MEAN CORPUSCULAR HEMOGLOBIN 32.4 pg (27.0-33.0); MEAN CORPUSCULAR HGB CONC 35.2 g/dl (32.0-36.5); MEAN CORPUSCULAR VOLUME 92.2 fl (80.0-96.0); RED BLOOD COUNT 3.73 10^6/uL (4.30-6.10); WHITE BLOOD COUNT 2.7 10^3/uL (4.0-10.0)
[2020-12-16 19:05] LABS: ACETONE/KETONE > 46.00 MG/DL (<2.81)
[2020-12-16 19:08] LABS: INR 1.58; PROTHROMBIN TIME 19.3 SECONDS (12.7-14.5)
[2020-12-16 19:09] LABS: PARTIAL THROMBOPLASTIN TIME 34.3 SECONDS (25.9-37.0)
[2020-12-16 19:27] LABS: ALBUMIN 2.5 GM/DL (3.2-5.2); CALCIUM LEVEL 6.9 MG/DL (8.5-10.1); CREATININE FOR GFR 5.78 MG/DL (0.70-1.30); GLOMERULAR FILTRATION RATE 10.8 (>56); POTASSIUM SERUM 4.2 MEQ/L (3.5-5.1); TOTAL PROTEIN 4.9 GM/DL (6.4-8.2); TROPONIN I 20.8 NG/ML (< 0.10)
[2020-12-16 19:56] LABS: PLATELET COUNT, AUTOMATED 88 10^3/uL (150-450)
[2020-12-16] MEDS: ATORVASTATIN 20 MG TAB PO SCH (20:15)
[2020-12-16] MEDS: THIAMINE 200MG 2ML VIAL IV SCH (20:16)
[2020-12-16] MEDS: traMADol 50 MG TAB PO PRN (20:16)
[2020-12-16] MEDS ORDERED: KCL 20MEQ IN D5/0.45NS 1000ML 1,000 ML IV SCH (20:25)
--- NOTE | 2020-12-16 22:01 | IPNPDOC ---
Text Note Date of Service The patient was seen on 12/16/20. NOTE TIME OF SERVICE 950PM The pt is still c/o shoulder pain. Per d/w his RN Roman the HR is in the 120s. I reviewed the telemonitor personally and confirmed that the patient is in rapid A fib therefore I will order one dose of Amiodarone. VS,Fishbone, I+O VS, Fishbone, I+O Laboratory Tests 12/15/20 22:21 12/15/20 22:22 12/16/20 00:08 12/16/20 04:58 12/16/20 10:47 12/16/20 18:21 Vital Signs Date Time Temp Pulse Resp B/P (MAP) Pulse Ox O2 Delivery O2 Flow Rate FiO2 12/16/20 20:16 24 12/16/20 19:14 82 12/16/20 18:00 101/50 (67) 92 Nasal Cannula 3.0 12/16/20 12:00 98.4 I&O- Last 24 Hours up to 6 AM 12/16/20 06:00 Intake Total 2854 ml Output Total 403 ml Balance 2451 ml IVAN ALLEN MD Dec 16, 2020 22:01
[2020-12-16] MEDS ORDERED: AMIODARONE HCL 150 MG in IV 1 EA IV SCH (22:05)
[2020-12-16 22:12] LABS: AMORPHOUS SEDIMENT SMALL (NEGATIVE); APPEARANCE, URINE CLOUDY (CLEAR); BACTERIA, URINE AUTO NEGATIVE (NEGATIVE); BILIRUBIN, URINE AUTO NEGATIVE (NEGATIVE); BLOOD, URINE BLOOD 3+ (NEGATIVE); COLOR, URINE YELLOW (YELLOW); GLUCOSE, URINE (UA) AUTO NEGATIVE (NEGATIVE); KETONE, URINE AUTO TRACE mg/dL (NEGATIVE); LEUKOCYTE ESTERASE, URINE AUTO NEGATIVE (NEGATIVE); MUCUS, URINE SMALL (NEGATIVE); NITRITE, URINE AUTO NEGATIVE (NEGATIVE); PROTEIN, URINE AUTO 1+ mg/dL (NEGATIVE); RBC, URINE AUTO 10 /HPF (0-3); SPECIFIC GRAVITY URINE AUTO 1.011 (1.002-1.035); SQUAMOUS EPITHELIAL CELL UR AU 2 /HPF (0-6); UROBILINOGEN, URINE AUTO 0.2 mg/dL (0.0-2.0); WBC, URINE AUTO 12 /HPF (0-3)
[2020-12-16] MEDS ORDERED: LORazepam 2 MG/ML VIAL As Ordered ONE (22:50)
[2020-12-16] MEDS: AMIODARONE HCL 360 MG in IV 1 EA IV SCH (23:00)
[2020-12-16] MEDS: LORazepam 2 MG/ML VIAL IV PRN (23:00)
[2020-12-16] MEDS: NS 1,000 ML IV SCH (23:32)
[2020-12-17] VITALS (18 sets, daily range): BP systolic 63–168; BP diastolic 35–87
[2020-12-17] MEDS ORDERED: LORazepam 2 MG/ML VIAL As Ordered ONE ×3 (00:54→21:47)
[2020-12-17] MEDS: LORazepam 2 MG/ML VIAL IV PRN ×3 (01:10→21:50)
[2020-12-17] MEDS: FOLIC ACID 1 MG in NS 50 ML IV SCH (01:10)
[2020-12-17] MEDS: AMIODARONE HCL 360 MG in IV 1 EA IV SCH (05:30)
[2020-12-17] MEDS: PIPERACILLIN/TAZOBACTAM SOD 2.25 GM in D5W MINI-BAG PLUS 50 ML IV SCH ×2 (06:04→17:05)
[2020-12-17 06:21] LABS: HEMATOCRIT 33.4 % (42.0-52.0); HEMOGLOBIN 11.7 g/dl (13.5-17.5); MEAN CORPUSCULAR HEMOGLOBIN 32.1 pg (27.0-33.0); MEAN CORPUSCULAR VOLUME 91.5 fl (80.0-96.0); RED BLOOD COUNT 3.65 10^6/uL (4.30-6.10); WHITE BLOOD COUNT 4.1 10^3/uL (4.0-10.0)
[2020-12-17 06:23] LABS: PLATELET COUNT, AUTOMATED 76 10^3/uL (150-450)
[2020-12-17 06:40] LABS: INR 1.62; PROTHROMBIN TIME 19.6 SECONDS (12.7-14.5)
[2020-12-17 07:26] LABS: ALBUMIN 2.2 GM/DL (3.2-5.2); BILIRUBIN,DIRECT 0.3 MG/DL (0.0-0.2); BILIRUBIN,TOTAL 0.8 MG/DL (0.2-1.0); CALCIUM LEVEL 6.3 MG/DL (8.5-10.1); CREATININE FOR GFR 5.1 MG/DL (0.70-1.30); GLOMERULAR FILTRATION RATE 12.5 (>56); POTASSIUM SERUM 3.4 MEQ/L (3.5-5.1); TOTAL PROTEIN 4.6 GM/DL (6.4-8.2); TROPONIN I 11.5 NG/ML (< 0.10)
[2020-12-17 07:35] LABS: LYMPHOCYTES 12 % (16-44); METAMYELOCYTES 23 % (0-0); MONOCYTES 2 % (0-5); MYELOCYTES 9 % (0-0); NEUTROPHILS 15 % (28-66)
[2020-12-17 07:39] LABS: PLATELET ESTIMATE MARKED DECREASE (NORMAL)
[2020-12-17] MEDS: PANTOPRAZOLE 40MG VIAL (C9113 PER 1) IV SCH ×2 (08:24→21:00)
[2020-12-17] MEDS: HumaLOG INSULIN (NovoLOG) PER UNIT SC SCH ×4 (08:25→20:41)
[2020-12-17] MEDS: NS 1,000 ML IV SCH (08:26)
[2020-12-17] MEDS: BUDESONIDE 180MCG INHALER (PULMICORT FLEXHALER) INH SCH ×2 (08:33→20:23)
[2020-12-17] MEDS: ASPIRIN 81MG ENTERIC TABLET PO SCH (09:00)
[2020-12-17 09:53] LABS: ACETONE/KETONE 17.37 MG/DL (<2.81)
--- NOTE | 2020-12-17 11:12 | ECHO ---
ECHOCARDIOGRAM DATE OF PROCEDURE: 12/16/2020 Age: Gender: Male Height: 170 cm Weight: 98 kg REFERRING PHYSICIAN: Mera Kolb M.D. INDICATION: Atrial fibrillation, elevated troponin. MEASUREMENTS: IVS 1.5 cm LV 5.0 cm LVPW 1.3 cm LA 4. 5 cm Aorta 3.1 cm IVC 1.5 cm Mitral E wave velocity 56 A wave 63 E prime septal 4.7 E prime lateral 9.9 FINDINGS: This study is of acceptable technical quality. Patient is in sinus rhythm. Left ventricle is normal size. Moderate left ventricular hypertrophy is noted. Estimated left ventricular ejection fraction (LVEF) of approximately 65-70%. I do not appreciate any distinct wall motion abnormalities. Right ventricle is also of normal size and systolic function. Both atria are at least mildly enlarged. Aortic valve is sclerotic, but mobility of leaflets is preserved. There are also degenerative abnormalities of mitral valve with mitral annular calcifications, but intact mobility of mitral leaflets. Tricuspid valve appears normal. Pulmonic valve was not well seen. No pericardial effusion is noted. Inferior vena cava is normal size. Aortic root, aortic arch and visualized segment of abdominal aorta all appear normal. Doppler interrogation of aortic valve reveals trivial stenosis with mean gradient 8 mmHg and no insufficiency. Mitral valve is functionally competent. Tricuspid valve exhibits trace insufficiency, but quality of TR jet was not sufficient to calculate pulmonary artery pressure. Mitral inflow pattern and tissue Doppler imaging of mitral annuls reveals grade 1 diastolic dysfunction. CONCLUSIONS: 1. Study is of acceptable technical quality. Underlying sinus rhythm. 2. Normal left ventricular size (LV) size with moderate left ventricular hypertrophy (LVH) and preserved LV systolic function. Grade 1 diastolic dysfunction. 3. No hemodynamically significant valvular disease. 4. Likely normal central venous pressure, but unable to estimate pulmonary artery pressure. 5. Overall study most consistent with hypertensive heart disease. MTDD
[2020-12-17] MEDS ORDERED: NS 1,000 ML IV ONE (12:50)
--- NOTE | 2020-12-17 13:20 | IPNPDOC ---
Subjective Date Seen The patient was seen on 12/17/20. Subjective Chief Complaint/HPI Patient is sedated this morning. Patient got 3 doses of lorazepam IV overnight. Having numerous loose bowel movements probably from the several Kayexalate doses that he got on the day of admission. He is making good amounts of urine now. Seems like patient is going through alcohol withdrawal. Objective Physical Examination General Exam: Positive: Alert, Cooperative, Mild Distress Eye Exam: Positive: PERRLA, Conjunctiva & lids normal, EOMI; Negative: Sclera icteric ENT Exam: Positive: Atraumatic, Mucous membr. moist/pink, Pharynx Normal Neck Exam: Positive: Supple; Negative: JVD, thyromegaly Chest Exam: Positive: Clear to auscultation, Normal air movement Heart Exam: Positive: Rate Normal, Normal S1, Normal S2; Negative: Murmurs, Rubs Abdomen Exam: Positive: BS Hypoactive, Soft, Tenderness (left lower quadrant) Extremity Exam: Negative: Clubbing, Cyanosis, Edema Skin Exam: Positive: Nl turgor and temperature; Negative: Breakdown, Lesion Neuro Exam: Positive: Normal Speech, Strength at 5/5 X4 ext, Normal Tone Psych Exam: Positive: Memory Intact, Oriented x 3 Assessment /Plan Assessment 55-year-old male with insulin-dependent diabetes, rheumatoid arthritis, hypertension, hyperlipidemia, GERD, COPD, smoker, alcohol use disorder presented to the emergency room with 1 day history of severe nausea, vomiting, unable to keep any food down, chest pain and shortness of breath. As per EMS patient was noted to be very restless and uncomfortable and when they checked the blood sugar it was high. Patient reports that he is glucometer broke down 2 days ago and so he has not been taking his insulin as he has not been able to check his blood sugar. On arrival to the ED patient's blood glucose level was 930. Patient was in severe high anion gap metabolic acidosis with a pH of 6.97, anion gap of 30. Patient was also in acute renal failure with a creatinine of 4.4 and hyperkalemic with a potassium of 7.1. Patient's EKG showed atrial fibrillation with controlled rate.Patient was admitted for DKA, acute renal failure, hyperkalemia, severe high anion gap metabolic acidosis with lactic acidosis. Hospital course complicated by GI bleed which is thought to be due to ischemic colitis, shock liver, a brief episode of A. fib with RVR needing 1 dose of amiodarone IV. DKA resolved started on levemir and lispro will recheck ketones. they are still not normalized Acute renal failure on chronic kidney disease stage III with hyperkalemia Baseline creatinine is about 1.5 hyperkalemia has improved. patient is now making urine. creatine about the same as yesterday Shock liver monitor Lfts bid, pt inr bid. will check ammonia seen by GI if inr rises may need to be transferred to liver transplant unit Alcohol use disorder with alcohol withdrawal as per life partner Osiris he drinks 4 times a week about 8 to 10 beers. CIWA protocol sitter if needed Thiamine and folate and Ativan as needed. Acute respiratory failure with hypoxia on admission RR 26 to 28 and was needing 4 to 5 liters of oxygen since admission now needing 3 liters of oxygen GIB: patient had 2 bloody bowel movements overnight. CT abd and pelvis with increased fluid in the colon. consulted GI, discussed pt with Dr Burgos could be ischemic colitis from the hypotension, and has lactic acidosis, unlikely variceal bleed as with variceal bleed there will be significant drop in H/H continue zosyn. Elevated troponin likely NSTEMI, patient is a diabetic so likely has some underlying CAD continue statin, and aspirin Echo reviewed no regional wall motion abnormality, normal EF, LVH and grade 1 diastolic dysfunction Severe high anion gap metabolic acidosis Due to diabetic ketoacidosis and lactic acidosis and acute renal failure Patient received bicarb, bicarb infusion. now acidosis has improved. Lactic acidosis Likely secondary to severe dehydration, hypotension with acute renal failure my also have ischemic colitis. Chronic A. fib Undiagnosed before. Seen on EKG on admission Patient had a brief episode of A. fib with RVR on the night of 12/16/2020 and was given 1 dose of amiodarone Now rate is again controlled COPD We will continue a steroid inhaler and albuterol as needed GERD We will continue PPI Hyperlipidemia On statin Hypertension Hypotension has now resolved Anxiety and depression Continue sertraline Chronic back pain On tizanidine as needed, Lyrica will restart when able to take p.o. Will use tylenol for pain control No NSAIDs. Plan/VTE VTE Prophylaxis Ordered?: Yes VS, I&O, 24H, Fishbone Vital Signs/I&O Vital Signs Date Time Temp Pulse Resp B/P (MAP) Pulse Ox O2 Delivery O2 Flow Rate FiO2 12/17/20 08:00 98.2 80 20 147/69 (95) 93 Nasal Cannula 5.0 I&O- Last 24 Hours up to 6 AM 12/17/20 06:00 Intake Total 3722.53 ml Output Total 1560 ml Balance 2162.53 ml Laboratory Data 24H LABS Laboratory Tests 2 12/16/20 14:05: Bedside Glucose (Misc Panel) 190H 12/16/20 15:04: Bedside Glucose (Misc Panel) 156H 12/16/20 17:09: Bedside Glucose (Misc Panel) 153H 12/16/20 18:21: Nucleated Red Blood Cells % (auto) 0.0, Immature Platelet Fraction 5.5, Prot hrombin Time 19.3H, Prothromb Time International Ratio 1.58, Activated Partial Thromboplast Time 34.3, Anion Gap 12, Glomerular Filtration Rate 10.8L, Lactic Acid Level 1.8, Calcium Level 6.9L, Total Bilirubin 1.0, Aspartate Amino Transf (AST/SGOT) 5088H, Alanine Aminotransferase (ALT/SGPT) 1296H, Alkaline Phosphatase 69, Troponin I 20.80*H, Total Protein 4.9L, Albumin 2.5L, Albumin/Globulin Ratio 1.0 12/16/20 20:37: Bedside Glucose (Misc Panel) 191H 12/16/20 22:00: Urine Color YELLOW, Urine Appearance CLOUDYH, Urine pH 5.0, Urine Specific [place] 1.011, Urine Protein 1+H, Urine Glucose (Auto)(UA) NEGATIVE, Urine Ketones (Auto) TRACEH, Urine Blood 3+H, Urine Nitrite NEGATIVE, Urine Bilirubin NEGATIVE, Urine Urobilinogen 0.2, Urine Leukocyte Esterase (Auto) NEGATIVE, Urine WBC (Auto) 12H, Urine RBC (Auto) 10H, Urine Hyaline Casts (Auto) 0, Urine Bacteria (Auto) NEGATIVE, Urine Squamous Epithelial Cells 2, Urine Amorphous Sediment (Auto) SMALLH, Urine Mucus (Auto) SMALL, Urine Sperm (Auto) 12/17/20 05:05: Neutrophils (%) (Auto) , Nucleated Red Blood Cells % (auto) 0.0, Neutrophils 15L, Band Neutrophils 39H, Lymphocytes (Manual) 12L, Monocytes (Manual) 2, Metamyelocytes 23H, Myelocytes 9H, Platelet Estimate MARKED DECREASE, Prothrombin Time 19.6H, Prothromb Time International Ratio 1.62, Anion Gap 15, Glomerular Filtration Rate 12.5L, Calcium Level 6.3L, Total Bilirubin 0.8, Direct Bilirubin 0.3H, Aspartate Amino Transf (AST/SGOT) 3397H, Alanine Aminotransferase (ALT/SGPT) 1295H, Alkaline Phosphatase 66, Troponin I 11.50#*H, Total Protein 4.6L, Albumin 2.2L, Albumin/Globulin Ratio 0.9, B-Hydroxybutyrate 17.37H 12/17/20 12:18: Bedside Glucose (Misc Panel) 333H CBC/BMP Laboratory Tests 12/16/20 18:21 12/17/20 05:05 Microbiology Microbiology 12/15/20 Stool Occult Blood (JOSEFA) - Final, Complete 12/15/20 Blood Culture - Preliminary, Resulted No growth after 24 hours . All specim... 12/15/20 Blood Culture - Preliminary, Resulted No growth after 24 hours . All specim... Mera Kolb MD Dec 17, 2020 13:20
[2020-12-17] MEDS: KCL 20MEQ IN 0.45NS 1000ML 1,000 ML IV SCH ×2 (13:26→20:59)
[2020-12-17] MEDS: LEVEMIR (INSULIN DETEMIR) 1 UNITS/0.01ML SC SCH (13:28)
[2020-12-17 16:58] LABS: ALBUMIN 2.1 GM/DL (3.2-5.2); BILIRUBIN,TOTAL 0.9 MG/DL (0.2-1.0); CALCIUM LEVEL 6.2 MG/DL (8.5-10.1); CREATININE FOR GFR 3.59 MG/DL (0.70-1.30); GLOMERULAR FILTRATION RATE 18.8 (>56); POTASSIUM SERUM 3.8 MEQ/L (3.5-5.1); TOTAL PROTEIN 4.8 GM/DL (6.4-8.2)
[2020-12-17] MEDS: METOPROLOL TART 25 MG TABLET PO SCH ×2 (18:00→20:59)
[2020-12-17] MEDS: ATORVASTATIN 20 MG TAB PO SCH (20:59)
[2020-12-17] MEDS: THIAMINE 200MG 2ML VIAL IV SCH (21:00)
--- NOTE | 2020-12-17 22:06 | IPNPDOC ---
Subjective CC/HPI The patient is a 55-year-old male admitted with a reason for visit of Dka (Diabetic Ketoacidosis). Events since last encounter Pt was seen in AM in ICU, he is still very obtunded. He was given Ativan x 3 last night. He is unable to answer any questions. Pt having alot of diarrhea. DKA is still not resolved fully. beta hydroxybutyrate is still high. However he is polyuric now and seems like renal function is improving.Cr 5.7-->5.1 General: Reports: ROS Unobtainable (Very obtunded and drowsy, opens eyes and just turns in bed) Objective Physical Examination General Exam: No: Alert (drowsy), No Acute Distress EYE EXAM: PERRLA; No: Sclera icteric ENT EXAM: Atraumatic; No: Mucous membr. moist/pink (Dry mucous membranes and tongue) Neck Exam: Supple; No: JVD, thyromegaly Chest Exam: Clear to auscultation, Normal air movement Heart Exam: Rate Normal, Normal S1, Normal S2; No: Murmurs, Rubs ABDOMEN EXAM: Normal bowel sounds, Soft, Tenderness (Mild tenderness in epigastrium); No: Hepatospenomegaly Extremity Exam: No: Clubbing, Cyanosis, Edema Skin Exam: Nl turgor and temperature; No: Rash, Breakdown Neuro Exam: Normal Tone, Other (very obtunded and non verbal); No: Normal Speech Psych Exam: Other (encephalopathic); No: Mental status NL Vital Signs/I&O Vital Signs Date Time Temp Pulse Resp B/P (MAP) Pulse Ox O2 Delivery O2 Flow Rate FiO2 12/17/20 21:52 102 156/78 12/17/20 20:00 3.0 12/17/20 16:00 98.4 21 96 Nasal Cannula I&O- Last 24 Hours up to 6 AM 12/17/20 06:00 Intake Total 3722.53 ml Output Total 1560 ml Balance 2162.53 ml Laboratory Data Labs 24H Laboratory Tests 2 12/17/20 05:05: Neutrophils (%) (Auto) , Nucleated Red Blood Cells % (auto) 0.0, Neutrophils 15L, Band Neutrophils 39H, Lymphocytes (Manual) 12L, Monocytes (Manual) 2, Metamyelocytes 23H, Myelocytes 9H, Platelet Estimate MARKED DECREASE, Prothrombin Time 19.6H, Prothromb Time International Ratio 1.62, Anion Gap 15, Glomerular Filtration Rate 12.5L, Calcium Level 6.3L, Total Bilirubin 0.8, Direct Bilirubin 0.3H, Aspartate Amino Transf (AST/SGOT) 3397H, Alanine Fatima otransferase (ALT/SGPT) 1295H, Alkaline Phosphatase 66, Troponin I 11.50#*H, Total Protein 4.6L, Albumin 2.2L, Albumin/Globulin Ratio 0.9, B-Hydroxybutyrate 17.37H 12/17/20 12:18: Bedside Glucose (Misc Panel) 333H 12/17/20 16:00: Anion Gap 9, Glomerular Filtration Rate 18.8L, Calcium Level 6.2L, Total Bilirubin 0.9, Aspartate Amino Transf (AST/SGOT) 2581H, Alanine Aminotransferase (ALT/SGPT) 1339H, Alkaline Phosphatase 74, Total Protein 4.8L, Albumin 2.1L, Albumin/Globulin Ratio 0.8, B-Hydroxybutyrate 21.81H, Ammonia 15 12/17/20 16:52: Bedside Glucose (Misc Panel) 286H 12/17/20 20:37: Bedside Glucose (Misc Panel) 206H CBC/BMP Laboratory Tests 12/17/20 05:05 12/17/20 16:00 FSBS Laboratory Tests Test 12/17/20 12:18 12/17/20 16:52 12/17/20 20:37 Range/Units Bedside Glucose (Misc Panel) 333 286 206 70-105 MG/DL Current Medications Current Medications Medications (Trade) Dose Ordered Sig/Ren Route PRN Reason Start Time Stop Time Status Last Admin Dose Admin Acetaminophen (Tylenol Arthritis Er) 1,300 mg Q8HP PRN PO pain 1-10 , fever 12/16/20 03:50 12/16/20 13:46 DC 12/16/20 12:25 Albuterol Sulfate (Proventil Neb) 2.5 mg Q4HP PRN NEB SOB/WHEEZING 12/15/20 19:05 Amiodarone HCl 150 mg/IV Miscellaneous Supplies 100 ml @ 600 mls/hr NOW IV 12/16/20 22:05 12/16/20 22:14 DC 12/16/20 22:46 Amiodarone HCl 360 mg/IV Miscellaneous Supplies 200 ml @ 33.333 mls/ hr Q6H IV 12/16/20 23:00 12/17/20 04:59 DC 12/17/20 05:30 Aspirin (Ecotrin) 81 mg DAILY PO 12/16/20 09:00 Atorvastatin Calcium (Lipitor) 40 mg QHS PO 12/16/20 21:00 12/17/20 20:59 Budesonide (Pulmicort Flexhaler) 2 puff RBID INH 12/15/20 20:00 12/17/20 20:23 Ceftriaxone Sodium 1 gm/ Dextrose 50 ml @ 100 mls/hr Q24H IV 12/15/20 23:00 12/15/20 23:10 DC Dextrose (Dextrose 50%) 25 ml ASDIRECTED PRN IV SEE LABEL COMMENTS 12/16/20 16:30 Enoxaparin Sodium (Lovenox) 40 mg DAILY SC 12/16/20 09:00 12/15/20 19:01 DC Folic Acid 1 mg/ Sodium Chloride 50.2 ml @ 100.4 mls/ hr Q24H IV 12/16/20 00:00 12/17/20 01:10 Glucagon (Glucagon) 1 mg ASDIRECTED PRN SC SEE LABEL COMMENTS 12/16/20 16:30 Glucose (Glucose) 16 GM ASDIRECTED PRN PO SEE LABEL COMMENTS 12/16/20 16:30 Heparin Sodium (Porcine) (Heparin) 5,000 units BID SQ 12/15/20 21:00 12/15/20 23:05 DC Home Med (Home Med List Complete!) ASDIRECTED XX 12/15/20 18:00 12/15/20 18:01 DC Insulin Detemir (Levemir Insulin) 30 units DAILY SC 12/17/20 09:00 12/17/20 13:28 Insulin Human Lispro (HumaLOG INSULIN) SEE PROTOCOL TABLE AC SC 12/16/20 17:30 12/17/20 17:06 Insulin Human Lispro (HumaLOG INSULIN) SEE PROTOCOL TABLE QHS SC 12/16/20 21:00 Insulin Human Regular 100 unit/ IV Miscellaneous Supplies 100 ml @ 0 mls/hr Q0M IV 12/15/20 18:30 12/16/20 15:49 DC 12/16/20 04:08 Insulin Human Regular 100 unit/ IV Miscellaneous Supplies 100 ml @ 9 mls/hr Q11H7M IV 12/15/20 17:15 12/15/20 18:41 DC 12/15/20 18:25 Lorazepam (Ativan) 2 mg Q2HP PRN IV per [facility] protocol 12/15/20 21:40 12/17/20 21:50 Metoprolol Tartrate (Lopressor) 25 mg Q6H PO 12/17/20 18:00 12/17/20 20:59 Metronidazole 500 mg/IV Miscellaneous Supplies 100 ml @ 100 mls/hr Q8H IV 12/16/20 00:00 12/16/20 09:32 DC 12/16/20 08:39 Non-Formulary Medication (Insulin Iv Rate Change Documentation ml/ Hr) ASDIRECTED XX 12/15/20 17:15 12/15/20 18:41 DC Non-Formulary Medication (Insulin Iv Rate Change Documentation ml/ Hr) ASDIRECTED XX 12/15/20 18:30 12/16/20 15:49 DC 12/16/20 15:17 Octreotide Acetate 1200 mcg/ Sodium Chloride 240 ml @ 10 mls/hr Q24H IV 12/16/20 01:00 12/16/20 10:27 DC 12/16/20 01:15 Ondansetron HCl (ZOFRAN INJection) 4 mg Q6HP PRN IV NAUSEA OR VOMITING 12/15/20 18:30 12/16/20 20:44 Pantoprazole Sodium (Protonix) 40 mg BID IV 12/15/20 21:00 12/17/20 21:00 Pantoprazole Sodium (Protonix) 40 mg Q24H IV 12/15/20 21:00 12/15/20 23:05 DC Piperacillin Sod/ Tazobactam Sod 2.25 gm/Dextrose 50 ml @ 100 mls/hr Q8H IV 12/15/20 23:00 12/17/20 17:05 Potassium Chloride/Dextrose/ Sod Cl 1,000 ml @ 100 mls/hr Q10H IV 12/16/20 20:25 12/16/20 23:25 DC Potassium Chloride/Sodium Chloride 1,000 ml @ 150 mls/hr Q6H40M IV 12/17/20 12:50 12/17/20 20:59 Sodium Bicarbonate 150 meq/Sterile Water 1,150 ml @ 100 mls/hr [id number] IV 12/15/20 23:00 12/16/20 10:17 DC 12/16/20 04:10 Sodium Bicarbonate (Sodium Bicarbonate) 50 meq STAT STAT IV 12/15/20 16:25 12/15/20 16:27 DC 12/15/20 16:30 Sodium Bicarbonate (Sodium Bicarbonate) 50 meq STAT STAT IV 12/15/20 20:53 12/15/20 20:58 DC 12/15/20 21:15 Sodium Bicarbonate (Sodium Bicarbonate) 50 meq STAT STAT IV 12/15/20 21:13 12/15/20 21:23 DC Sodium Chloride 1,000 ml @ 100 mls/hr Q10H IV 12/16/20 10:15 12/16/20 20:22 DC 12/16/20 10:36 Sodium Chloride 1,000 ml @ 100 mls/hr Q10H IV 12/16/20 23:25 12/17/20 12:48 DC 12/17/20 08:26 Sodium Chloride 1,000 ml @ 200 mls/hr Q5H IV 12/15/20 18:30 12/15/20 21:03 DC Thiamine HCl (VITAMIN B1 INJection) 100 mg DAILY@2100 IV 12/15/20 21:00 12/17/20 21:00 Tramadol HCl (Ultram) 50 mg Q8HP PRN PO PAIN LEVEL 5-10 12/16/20 13:40 12/16/20 20:16 Allergies Coded Allergies: diphenhydramine (Verified Allergy, Intermediate, ITCHING, 01/26/20) Assessment/Plan Date Seen The patient was seen on 12/17/20 in AM. Plan / VTE VTE Prophylaxis Ordered?: Yes Plan Orders past 48 Hours Orders Cbc With Auto Diff (12/15/20 22:13) Ct Abd & Pelvis W/O Contrast (12/15/20 22:13) Piperacillin/Tazobactam Sod (Zosyn) (12/15/20 23:00) Stool For Occult Blood (12/15/20 22:21) Metronidazole (Flagyl) (12/16/20 00:00) Stool For Occult Blood (12/15/20 23:00) Type & Screen (12/16/20 02:00) Octreotide Acetate (Sandostatin) (12/15/20 23:00) Ceftriaxone Sod (Rocephin) (12/15/20 23:00) * Nursing Order * (12/15/20 23:00) Hemoglobin (12/16/20 02:00) Ns (Nacl 0.9%) W/Octreotide Acetate (12/16/20 01:00) Pantoprazole Sodium (Protonix) (12/15/20 21:00) Npo Diet (12/16/20 Breakfast) Bedside Glucose Confirmation (12/15/20 23:24) Electrocardiogram Adult (12/15/20 23:42) Urinalysis (12/16/20 00:53) Fingerstick Blood Sugar (12/16/20 01:07) Stool For Occult Blood (12/16/20 01:47) Fingerstick Blood Sugar (12/16/20 02:14) Sodium Polystyrene Sulfonate (Kayexalate (12/16/20 03:15) Urinary Catheter DOCUMENT BID (12/16/20 03:20) Urinary Catheter Reflex Discon (12/16/20 03:20) Acetaminophen *Ext Rel* (Tylenol Arthrit (12/16/20 03:50) Fingerstick Blood Sugar (12/16/20 03:59) Fingerstick Blood Sugar (12/16/20 04:55) Fingerstick Blood Sugar (12/16/20 06:01) Occult Blood Stool Specimen (12/16/20 06:28) Fingerstick Blood Sugar (12/16/20 06:52) Aspirin (Ecotrin) (12/16/20 09:00) Atorvastatin (Lipitor) (12/16/20 21:00) Cardiology Consult (12/16/20 07:57) Echocard,Doppler/Color Flow (12/16/20 07:57) Fingerstick Blood Sugar (12/16/20 07:49) Mag Sulf 1gm/100ml (Mag Run) (Mag Sulf 1 (12/16/20 09:00) Fingerstick Blood Sugar (12/16/20 09:07) Knee-High Sequential Compressi (12/16/20 09:30) Fingerstick Blood Sugar (12/16/20 10:09) Ns (Nacl 0.9%) (12/16/20 10:15) Complete Blood Count (12/16/20 10:13) Basic Metabolic Profile (12/16/20 10:13) Troponin (12/16/20 10:13) Liver Profile (12/16/20 10:25) Gastroenterology Consult (12/16/20 10:27) Fingerstick Blood Sugar (12/16/20 00:02) Fingerstick Blood Sugar (12/15/20 19:54) Fingerstick Blood Sugar (12/15/20 20:34) Fingerstick Blood Sugar (12/15/20 18:02) Fingerstick Blood Sugar (12/15/20 21:45) Fingerstick Blood Sugar (12/15/20 23:21) Fingerstick Blood Sugar (12/16/20 11:05) Fingerstick Blood Sugar (12/16/20 12:06) Fingerstick Blood Sugar (12/16/20 13:02) Tramadol Hcl (Ultram) (12/16/20 13:40) Insulin Detemir (Levemir Insulin) (12/16/20 14:00) * Nursing Order * (12/16/20 13:40) Clear Liquids Diet (12/16/20 Lunch) Fingerstick Blood Sugar (12/16/20 14:05) Fingerstick Blood Sugar (12/16/20 15:04) Troponin (12/16/20 18:00) Complete Blood Count (12/16/20 18:00) Complete Comphrensive Metaboli (12/16/20 18:00) Fsbs Ac&Hs (Fingerstick) ACHS (12/16/20 16:30) Hypoglycemic Protocol (12/16/20 16:30) Insulin Lispro (Humalog Insulin) (12/16/20 17:30) Insulin Lispro (Humalog Insulin) (12/16/20 21:00) D50w (Dextrose 50%) (12/16/20 16:30) Glucose (Glucose) (12/16/20 16:30) Glucagon (Glucagon) (12/16/20 16:30) Fingerstick Blood Sugar (12/16/20 17:09) Pt & Aptt (12/16/20 18:06) Prothrombin Time Profile\Inr (12/17/20 06:00) Prothrombin Time Profile\Inr (12/18/20 06:00) Prothrombin Time Profile\Inr (12/19/20 06:00) Prothrombin Time Profile\Inr (12/20/20 06:00) Prothrombin Time Profile\Inr (12/21/20 06:00) Prothrombin Time Profile\Inr (12/22/20 06:00) Prothrombin Time Profile\Inr (12/23/20 06:00) Lactic Acid Level, Lactate (12/16/20 18:10) Immature Platelet Fraction (12/16/20 18:21) Liver Profile (12/17/20 06:00) Troponin (12/17/20 06:00) Kcl 20meq In D5/0.45ns 1000ml (Kcl 20meq (12/16/20 20:25) Fingerstick Blood Sugar (12/16/20 20:37) * Nursing Order * (12/16/20 21:23) Code Status (12/16/20 22:01) Amiodarone Hcl (Nexterone) (12/16/20 22:05) Iv W/Amiodarone Hcl (12/16/20 23:00) Ns (Nacl 0.9%) (12/16/20 23:25) Differential No Charge (12/17/20 05:05) Platelet Estimate (12/17/20 05:05) Sitter (Other Than Suicidal Ri (12/17/20 06:32) Acetone/Ketone (12/17/20 05:05) Ammonia (12/17/20 16:00) Complete Comphrensive Metaboli (12/17/20 16:00) Fingerstick Blood Sugar (12/17/20 12:18) Ns (Nacl 0.9%) (12/17/20 12:50) Kcl 20meq In 0.45ns 1000ml (Kcl 20meq In (12/17/20 12:50) Acetone/Ketone (12/17/20 16:00) Insulin Detemir (Levemir Insulin) (12/17/20 09:00) Electrocardiogram Adult (12/17/20 13:13) Fingerstick Blood Sugar (12/17/20 16:52) Metoprolol Tartrate (Lopressor) (12/17/20 18:00) Fingerstick Blood Sugar (12/17/20 20:37) Clostridium Difficile By Pcr (12/17/20 21:31) Isolation: Contact & Cleaning (12/17/20 21:31) Plan Text 1. Diabetic ketoacidosis. Persistent. Ketone levels still elevated, Pt is dry sec to post ATN diuresis, blood glucose levels still elevated. Continue insulin SS coverage. IVF being change to KCl 20 Meq in 1/2NS. 2. Hypokalemia: KCl added to IVF now. Pt was initially hyperkalemic on arrival. 3. Acute renal failure superimposed on chronic kidney disease: Post ATN diuresis now. UOP~200ml/hr now. IVF rate increased to 150. Cr improving. Acid base status improving. No urgent need of HD. 4. Lactic acidosis. Improved now. continue IVF now. 5. Elevated troponin/NSTEMI: No anticoagulation due to +jani FOBT. Pt is on statins but carefully monitor shock liver as well. 6. Shock liver: Gradually improving. 7.Metabolic encephalopathy: Sec to Severe DKA, Acute renal failure with Acid, base, electrolyte abnormality. Watch for Etoh withdrawal as well. 7. Persistent diarrhea: Likely sec to use of SPS but he continued to have multiple episodes of diarrhea all day long. C diff being sent. Continue IVF. Total critical care time excluding procedures was 45 min. CARLENE TUCKER MD Dec 17, 2020 22:06
[2020-12-18] VITALS: BP 120/62
[2020-12-18] MEDS: PIPERACILLIN/TAZOBACTAM SOD 2.25 GM in D5W MINI-BAG PLUS 50 ML IV SCH ×4 (00:13→22:02)
[2020-12-18] MEDS: FOLIC ACID 1 MG in NS 50 ML IV SCH (00:14)
[2020-12-18 01:40] VITALS: BP 120/62
[2020-12-18] MEDS: LORazepam 2 MG/ML VIAL IV PRN (01:43)
[2020-12-18] MEDS: traMADol 50 MG TAB PO PRN (01:43)
[2020-12-18] MEDS: KCL 20MEQ IN 0.45NS 1000ML 1,000 ML IV SCH ×2 (02:10→11:00)
[2020-12-18 05:37] LABS: HEMATOCRIT 31.2 % (42.0-52.0); MEAN CORPUSCULAR HEMOGLOBIN 32.4 pg (27.0-33.0); MEAN CORPUSCULAR HGB CONC 35.3 g/dl (32.0-36.5); RED BLOOD COUNT 3.39 10^6/uL (4.30-6.10); WHITE BLOOD COUNT 6.5 10^3/uL (4.0-10.0)
[2020-12-18 05:38] LABS: PLATELET COUNT, AUTOMATED 62 10^3/uL (150-450)
[2020-12-18 05:41] LABS: INR 1.32; PROTHROMBIN TIME 16.8 SECONDS (12.7-14.5)
[2020-12-18 05:51] LABS: CALCIUM LEVEL 6.4 MG/DL (8.5-10.1); CREATININE FOR GFR 2.05 MG/DL (0.70-1.30); GLOMERULAR FILTRATION RATE 35.8 (>56); POTASSIUM SERUM 3.2 MEQ/L (3.5-5.1)
[2020-12-18] MEDS: METOPROLOL TART 25 MG TABLET PO SCH ×3 (06:00→18:07)
[2020-12-18 06:35] LABS: EOSINOPHILS 4 % (0-3); LYMPHOCYTES 11 % (16-44); METAMYELOCYTES 2 % (0-0); MONOCYTES 4 % (0-5); NEUTROPHILS 50 % (28-66); PLATELET ESTIMATE DECREASED (NORMAL)
[2020-12-18 08:00] VITALS: BP 179/88
[2020-12-18 08:40] LABS: BILIRUBIN,DIRECT 0.3 MG/DL (0.0-0.2); TOTAL PROTEIN 4.5 GM/DL (6.4-8.2)
[2020-12-18] MEDS: BUDESONIDE 180MCG INHALER (PULMICORT FLEXHALER) INH SCH ×2 (08:57→20:03)
[2020-12-18] MEDS ORDERED: amLODIPine 5 MG TAB PO SCH (09:00)
[2020-12-18] MEDS ORDERED: FOLIC ACID 1 MG TAB PO SCH (09:00)
[2020-12-18] MEDS ORDERED: POTASSIUM CHLORIDE 10MEQ SR TABLET PO SCH (09:00)
--- NOTE | 2020-12-18 09:17 | IPNPDOC ---
Subjective Date Seen The patient was seen on 12/18/20. Subjective Chief Complaint/HPI Patient awake this morning but still confused and restless. Continues to have green liquid stool due to several doses of kayexlate that he has received. Having polyuria. Last Ativan received at 1:43 am. Now back in sinus rhythm. Objective Physical Examination General Exam: Positive: Alert, Cooperative, No Acute Distress, Other (still confused and restless) Eye Exam: Positive: PERRLA, Conjunctiva & lids normal, EOMI; Negative: Sclera icteric ENT Exam: Positive: Atraumatic, Mucous membr. moist/pink, Pharynx Normal Neck Exam: Positive: Supple; Negative: JVD, thyromegaly Chest Exam: Positive: Clear to auscultation, Normal air movement Heart Exam: Positive: Rate Normal, Regular Rhythm, Normal S1, Normal S2; Negative: Murmurs, Rubs Abdomen Exam: Positive: Normal bowel sounds, Soft, Tenderness Extremity Exam: Negative: Clubbing, Cyanosis, Edema Skin Exam: Positive: Nl turgor and temperature; Negative: Breakdown, Lesion Neuro Exam: Positive: Normal Speech, Strength at 5/5 X4 ext, Normal Tone Psych Exam: Positive: Memory Intact, Oriented x 3 Assessment /Plan Assessment 55-year-old male with insulin-dependent diabetes, rheumatoid arthritis, hypertension, hyperlipidemia, GERD, COPD, smoker, alcohol use disorder presented to the emergency room with 1 day history of severe nausea, vomiting, unable to keep any food down, chest pain and shortness of breath. As per EMS patient was noted to be very restless and uncomfortable and when they checked the blood sugar it was high. Patient reports that he is glucometer broke down 2 days ago and so he has not been taking his insulin as he has not been able to check his blood sugar. On arrival to the ED patient's blood glucose level was 930. Patient was in severe high anion gap metabolic acidosis with a pH of 6.97, anion gap of 30. Patient was also in acute renal failure with a creatinine of 4.4 and hyperkalemic with a potassium of 7.1. Patient's EKG showed atrial fibrillation with controlled rate.Patient was admitted for DKA, acute renal failure, hyperkalemia, severe high anion gap metabolic acidosis with lactic acidosis. Hospital course complicated by GI bleed which is thought to be due to ischemic colitis, shock liver, a brief episode of A. fib with RVR needing 1 dose of amiodarone IV. DKA resolved started on levemir and lispro will recheck ketones. they are still not normalized Acute renal failure on chronic kidney disease stage III with hyperkalemia Baseline creatinine is about 1.5 patient is now int eh polyuric phase of recovery. creatinine coming down nicely Shock liver LFTs improving, INR not elevated., Ammonia normal We will continue to avoid hepatotoxic medications Alcohol use disorder with alcohol withdrawal as per life partner Osiris he drinks 4 times a week about 8 to 10 beers. CIWA protocol Thiamine and folate and Ativan as needed. Acute respiratory failure with hypoxia on admission RR 26 to 28 and was needing 4 to 5 liters of oxygen since admission now needing 3 liters of oxygen GIB: patient had 2 bloody bowel movements overnight. CT abd and pelvis with increased fluid in the colon. consulted GI, discussed pt with Dr Burgos could be ischemic colitis from the hypotension, and has lactic acidosis, unlikely variceal bleed as with variceal bleed there will be significant drop in H/H continue zosyn. Elevated troponin likely NSTEMI. Patient is a diabetic so likely has underlying CAD continue statin, and aspirin and metoprolol Echo reviewed no regional wall motion abnormality, normal EF, LVH and grade 1 diastolic dysfunction Severe high anion gap metabolic acidosis Due to diabetic ketoacidosis and lactic acidosis and acute renal failure Patient received bicarb, bicarb infusion. now acidosis has improved. Lactic acidosis Likely secondary to severe dehydration, hypotension with acute renal failure my also have ischemic colitis. Paroxysmal A. fib with episodes of RVR Undiagnosed before. Seen on EKG on admission Patient had a brief episode of A. fib with RVR on the night of 12/16/2020 and was given 1 dose of amiodarone Now in sinus rhythm. Anticoagulation not given due to GI bleed. COPD We will continue a steroid inhaler and albuterol as needed GERD We will continue PPI Hyperlipidemia On statin Hypertension Continue metoprolol Anxiety and depression Continue sertraline Chronic back pain On tizanidine as needed, Lyrica will restart when able to take p.o. Will use tramadol for pain No NSAIDs or Tylenol Plan/VTE VTE Prophylaxis Ordered?: Yes VS, I&O, 24H, Fishbone Vital Signs/I&O Vital Signs Date Time Temp Pulse Resp B/P (MAP) Pulse Ox O2 Delivery O2 Flow Rate FiO2 12/18/20 04:00 3.0 12/18/20 02:13 18 93 Nasal Cannula 12/18/20 01:40 98 120/62 12/18/20 00:00 98.7 I&O- Last 24 Hours up to 6 AM 12/18/20 06:00 Intake Total 5490 ml Output Total 4900 ml Balance 590 ml Laboratory Data 24H LABS Laboratory Tests 2 12/17/20 12:18: Bedside Glucose (Misc Panel) 333H 12/17/20 16:00: Anion Gap 9, Glomerular Filtration Rate 18.8L, Calcium Level 6.2L, Total Bilirubin 0.9, Aspartate Amino Transf (AST/SGOT) 2581H, Alanine Aminotransferase (ALT/SGPT) 1339H, Alkaline Phosphatase 74, Ammonia 15, Total Protein 4.8L, Albumin 2.1L, Albumin/Globulin Ratio 0.8, B-Hydroxybutyrate 21.81H 12/17/20 16:52: Bedside Glucose (Misc Panel) 286H 12/17/20 20:37: Bedside Glucose (Misc Panel) 206H 12/18/20 05:19: Neutrophils (%) (Auto) , Nucleated Red Blood Cells % (auto) 0.0, Neutrophils 50, Band Neutrophils 29H, Lymphocytes (Manual) 11L, Monocytes (Manual) 4, Eosinophils (Manual) 4H, Metamyelocytes 2H, Platelet Estimate DECREASED, Immature Platelet Fraction 4.8, Prothrombin Time 16.8H, Prothromb Time I nternational Ratio 1.32, Anion Gap 6L, Glomerular Filtration Rate 35.8L, Calcium Level 6.4L, Total Bilirubin 1.0, Direct Bilirubin 0.3H, Aspartate Amino Transf (AST/SGOT) 1842H, Alanine Aminotransferase (ALT/SGPT) 1233H, Alkaline Phosphatase 73, Total Protein 4.5L, Albumin 2.0L, Albumin/Globulin Ratio 0.8 CBC/BMP Laboratory Tests 12/17/20 16:00 12/18/20 05:19 Microbiology Microbiology 12/15/20 Stool Occult Blood (JOSEFA) - Final, Complete 12/15/20 Blood Culture - Preliminary, Resulted No Growth after 48 hours. All Specime... 12/15/20 Blood Culture - Preliminary, Resulted No Growth after 48 hours. All Specime... Mera Kolb MD Dec 18, 2020 09:17
[2020-12-18] MEDS: HumaLOG INSULIN (NovoLOG) PER UNIT SC SCH ×4 (09:27→21:00)
[2020-12-18] MEDS: PANTOPRAZOLE 40MG VIAL (C9113 PER 1) IV SCH ×2 (09:27→22:01)
[2020-12-18] MEDS: LEVEMIR (INSULIN DETEMIR) 1 UNITS/0.01ML SC SCH (09:27)
[2020-12-18] MEDS: ASPIRIN 81MG ENTERIC TABLET PO SCH (09:28)
[2020-12-18] MEDS: THIAMINE 100 MG TAB PO SCH ×2 (09:28→22:01)
[2020-12-18 10:56] LABS: MAGNESIUM LEVEL 1.4 MG/DL (1.8-2.4); TROPONIN I 4.21 NG/ML (< 0.10)
[2020-12-18 12:00] VITALS: BP 154/87
[2020-12-18] MEDS ORDERED: CALCIUM GLUCONATE 1,000 MG in D5W MINI-BAG PLUS 100 ML IV ONE (15:00)
[2020-12-18] MEDS ORDERED: MAG SULF 1GM/100ML (MAG RUN) 1 GM in IV 1 EA IV ONE (15:00)
[2020-12-18 16:00] VITALS: BP 155/88
[2020-12-18 20:00] VITALS: BP 153/81
[2020-12-18] MEDS: ATORVASTATIN 20 MG TAB PO SCH (22:01)
--- NOTE | 2020-12-18 23:33 | IPNPDOC ---
Subjective CC/HPI The patient is a 55-year-old male admitted with a reason for visit of Dka (Diabetic Ketoacidosis). Events since last encounter Pt was seen in ICU today AM. He is more awake today and started eating food. Urine output is significantly better. Renal function continues to improve. Cr 3.5-->2 today. UOP 4.7L/1.2L since yesterday. General: Reports: Fatigue, Malaise; Denies: Chills, Night Sweats Constitutional: Denies: Chills, Fever Eyes: Denies: Pain, Vision change ENT: Denies: Head Aches, Ear Pain Skin: Denies: Rash, Lesions Pulmonary: Denies: Cough Cardiovascular: Denies: Chest Pain, Palpitations Gastrointestinal: Reports: Abdominal Pain; Denies: Diarrhea Genitourinary: Denies: Dysuria, Frequency Hematologic: Denies: Bruising, Bleeding Excessively Musculoskeletal: Denies: Neck Pain, Back Pain Neurological: Reports: Weakness Psych: Reports: Mood Normal Objective Physical Examination General Exam: No Acute Distress; No: Alert (drowsy) EYE EXAM: PERRLA; No: Sclera icteric ENT EXAM: Atraumatic, Mucous membr. moist/pink Neck Exam: Supple; No: JVD, thyromegaly Chest Exam: Clear to auscultation, Normal air movement Heart Exam: Rate Normal, Normal S1, Normal S2; No: Murmurs, Rubs ABDOMEN EXAM: Normal bowel sounds, Soft, Tenderness (Mild tenderness in epigastrium); No: Hepatospenomegaly Male Exam: Edema (trace edema of legs.) Extremity Exam: No: Clubbing, Cyanosis, Edema Skin Exam: Nl turgor and temperature; No: Rash, Breakdown Neuro Exam: Normal Speech, Normal Tone, Other (much more awake today.) Psych Exam: Mental status NL, Oriented x 3 Vital Signs/I&O Vital Signs Date Time Temp Pulse Resp B/P (MAP) Pulse Ox O2 Delivery O2 Flow Rate FiO2 12/18/20 20:00 97.3 73 17 153/81 (105) 95 Nasal Cannula 4.0 I&O- Last 24 Hours up to 6 AM 12/18/20 06:00 Intake Total 5490 ml Output Total 4900 ml Balance 590 ml Laboratory Data Labs 24H Laboratory Tests 2 12/18/20 05:19: Neutrophils (%) (Auto) , Nucleated Red Blood Cells % (auto) 0.0, Neutrophils 50, Band Neutrophils 29H, Lymphocytes (Manual) 11L, Monocytes (Manual) 4, Eosinophils (Manual) 4H, Metamyelocytes 2H, Platelet Estimate DECREASED, Immature Platelet Fraction 4.8, Prothrombin Time 16.8H, Prothromb Time Interna tional Ratio 1.32, Anion Gap 6L, Glomerular Filtration Rate 35.8L, Calcium Level 6.4L, Magnesium Level 1.4L, Total Bilirubin 1.0, Direct Bilirubin 0.3H, Aspartate Amino Transf (AST/SGOT) 1842H, Alanine Aminotransferase (ALT/SGPT) 1233H, Alkaline Phosphatase 73, Troponin I 4.21#*H, Total Protein 4.5L, Albumin 2.0L, Albumin/Globulin Ratio 0.8 12/18/20 12:06: Bedside Glucose (Misc Panel) 202H 12/18/20 17:54: Bedside Glucose (Misc Panel) 192H 12/18/20 20:45: Bedside Glucose (Misc Panel) 176H CBC/BMP Laboratory Tests 12/18/20 05:19 FSBS Laboratory Tests Test 12/18/20 12:06 12/18/20 17:54 12/18/20 20:45 Range/Units Bedside Glucose (Misc Panel) 202 192 176 70-105 MG/DL Current Medications Current Medications Medications (Trade) Dose Ordered Sig/Ren Route PRN Reason Start Time Stop Time Status Last Admin Dose Admin Acetaminophen (Tylenol Arthritis Er) 1,300 mg Q8HP PRN PO pain 1-10 , fever 12/16/20 03:50 12/16/20 13:46 DC 12/16/20 12:25 Albuterol Sulfate (Proventil Neb) 2.5 mg Q4HP PRN NEB SOB/WHEEZING 12/15/20 19:05 Amiodarone HCl 150 mg/IV Miscellaneous Supplies 100 ml @ 600 mls/hr NOW IV 12/16/20 22:05 12/16/20 22:14 DC 12/16/20 22:46 Amiodarone HCl 360 mg/IV Miscellaneous Supplies 200 ml @ 33.333 mls/ hr Q6H IV 12/16/20 23:00 12/17/20 04:59 DC 12/17/20 05:30 Amlodipine Besylate (Norvasc) 5 mg DAILY PO 12/18/20 09:00 12/18/20 09:32 Aspirin (Ecotrin) 81 mg DAILY PO 12/16/20 09:00 12/18/20 09:28 Atorvastatin Calcium (Lipitor) 40 mg QHS PO 12/16/20 21:00 12/18/20 22:01 Budesonide (Pulmicort Flexhaler) 2 puff RBID INH 12/15/20 20:00 12/18/20 20:03 Ceftriaxone Sodium 1 gm/ Dextrose 50 ml @ 100 mls/hr Q24H IV 12/15/20 23:00 12/15/20 23:10 DC Dextrose (Dextrose 50%) 25 ml ASDIRECTED PRN IV SEE LABEL COMMENTS 12/16/20 16:30 Enoxaparin Sodium (Lovenox) 40 mg DAILY SC 12/16/20 09:00 12/15/20 19:01 DC Folic Acid (Folic Acid) 1 mg DAILY PO 12/18/20 09:00 12/18/20 09:28 Folic Acid 1 mg/ Sodium Chloride 50.2 ml @ 100.4 mls/ hr Q24H IV 12/16/20 00:00 12/18/20 09:07 DC 12/18/20 00:14 Glucagon (Glucagon) 1 mg ASDIRECTED PRN SC SEE LABEL COMMENTS 12/16/20 16:30 Glucose (Glucose) 16 GM ASDIRECTED PRN PO SEE LABEL COMMENTS 12/16/20 16:30 Heparin Sodium (Porcine) (Heparin) 5,000 units BID SQ 12/15/20 21:00 12/15/20 23:05 DC Home Med (Home Med List Complete!) ASDIRECTED XX 12/15/20 18:00 12/15/20 18:01 DC Insulin Detemir (Levemir Insulin) 30 units DAILY SC 12/17/20 09:00 12/18/20 09:27 Insulin Human Lispro (HumaLOG INSULIN) SEE PROTOCOL TABLE AC SC 12/16/20 17:30 12/18/20 18:09 Insulin Human Lispro (HumaLOG INSULIN) SEE PROTOCOL TABLE QHS SC 12/16/20 21:00 Insulin Human Regular 100 unit/ IV Miscellaneous Supplies 100 ml @ 0 mls/hr Q0M IV 12/15/20 18:30 12/16/20 15:49 DC 12/16/20 04:08 Insulin Human Regular 100 unit/ IV Miscellaneous Supplies 100 ml @ 9 mls/hr Q11H7M IV 12/15/20 17:15 12/15/20 18:41 DC 12/15/20 18:25 Lorazepam (Ativan) 2 mg Q2HP PRN IV per [facility] protocol 12/15/20 21:40 12/18/20 01:43 Metoprolol Tartrate (Lopressor) 25 mg Q6H PO 12/17/20 18:00 12/18/20 18:07 Metronidazole 500 mg/IV Miscellaneous Supplies 100 ml @ 100 mls/hr Q8H IV 12/16/20 00:00 12/16/20 09:32 DC 12/16/20 08:39 Non-Formulary Medication (Insulin Iv Rate Change Documentation ml/ Hr) ASDIRECTED XX 12/15/20 17:15 12/15/20 18:41 DC Non-Formulary Medication (Insulin Iv Rate Change Documentation ml/ Hr) ASDIRECTED XX 12/15/20 18:30 12/16/20 15:49 DC 12/16/20 15:17 Octreotide Acetate 1200 mcg/ Sodium Chloride 240 ml @ 10 mls/hr Q24H IV 12/16/20 01:00 12/16/20 10:27 DC 12/16/20 01:15 Ondansetron HCl (ZOFRAN INJection) 4 mg Q6HP PRN IV NAUSEA OR VOMITING 12/15/20 18:30 12/16/20 20:44 Pantoprazole Sodium (Protonix) 40 mg BID IV 12/15/20 21:00 12/18/20 22:01 Pantoprazole Sodium (Protonix) 40 mg Q24H IV 12/15/20 21:00 12/15/20 23:05 DC Piperacillin Sod/ Tazobactam Sod 2.25 gm/Dextrose 50 ml @ 100 mls/hr Q8H IV 12/15/20 23:00 12/18/20 22:02 Potassium Chloride/Dextrose/ Sod Cl 1,000 ml @ 100 mls/hr Q10H IV 12/16/20 20:25 12/16/20 23:25 DC Potassium Chloride/Sodium Chloride 1,000 ml @ 60 mls/hr [id number] IV 12/17/20 12:50 12/18/20 11:00 Potassium Chloride (Micro-K Extencaps) 40 meq DAILY PO 12/18/20 09:00 12/18/20 09:28 Sodium Bicarbonate 150 meq/Sterile Water 1,150 ml @ 100 mls/hr [id number] IV 12/15/20 23:00 12/16/20 10:17 DC 12/16/20 04:10 Sodium Bicarbonate (Sodium Bicarbonate) 50 meq STAT STAT IV 12/15/20 16:25 12/15/20 16:27 DC 12/15/20 16:30 Sodium Bicarbonate (Sodium Bicarbonate) 50 meq STAT STAT IV 12/15/20 20:53 12/15/20 20:58 DC 12/15/20 21:15 Sodium Bicarbonate (Sodium Bicarbonate) 50 meq STAT STAT IV 12/15/20 21:13 12/15/20 21:23 DC Sodium Chloride 1,000 ml @ 100 mls/hr Q10H IV 12/16/20 10:15 12/16/20 20:22 DC 12/16/20 10:36 Sodium Chloride 1,000 ml @ 100 mls/hr Q10H IV 12/16/20 23:25 12/17/20 12:48 DC 12/17/20 08:26 Sodium Chloride 1,000 ml @ 200 mls/hr Q5H IV 12/15/20 18:30 12/15/20 21:03 DC Thiamine HCl (Thiamine HCl) 100 mg BID PO 12/18/20 09:00 12/18/20 22:01 Thiamine HCl (VITAMIN B1 INJection) 100 mg DAILY@2100 IV 12/15/20 21:00 12/18/20 09:07 DC 12/17/20 21:00 Tramadol HCl (Ultram) 50 mg Q8HP PRN PO PAIN LEVEL 5-10 12/16/20 13:40 12/18/20 01:43 Allergies Coded Allergies: diphenhydramine (Verified Allergy, Intermediate, ITCHING, 01/26/20) Assessment/Plan Date Seen The patient was seen on 12/18/20 in AM in ICU. Plan / VTE VTE Prophylaxis Ordered?: Yes Plan Orders past 48 Hours Orders Ns (Nacl 0.9%) (12/16/20 23:25) Sitter (Other Than Suicidal Ri (12/17/20 06:32) Ammonia (12/17/20 16:00) Complete Comphrensive Metaboli (12/17/20 16:00) Fingerstick Blood Sugar (12/17/20 12:18) Ns (Nacl 0.9%) (12/17/20 12:50) Kcl 20meq In 0.45ns 1000ml (Kcl 20meq In (12/17/20 12:50) Acetone/Ketone (12/17/20 16:00) Insulin Detemir (Levemir Insulin) (12/17/20 09:00) Electrocardiogram Adult (12/17/20 13:13) Fingerstick Blood Sugar (12/17/20 16:52) Metoprolol Tartrate (Lopressor) (12/17/20 18:00) Fingerstick Blood Sugar (12/17/20 20:37) Clostridium Difficile By Pcr (12/17/20 21:31) Isolation: Contact & Cleaning (12/17/20 21:31) Immature Platelet Fraction (12/18/20 05:19) Differential No Charge (12/18/20 05:19) Platelet Estimate (12/18/20 05:19) Liver Profile (12/20/20 06:00) Liver Profile (12/21/20 06:00) Transfer (In House) (12/18/20 07:43) Liver Profile (12/18/20 05:19) Consistent Carbohydrates (12/18/20 Breakfast) Potassium Chloride (Micro-K Extencaps) (12/18/20 09:00) Thiamine Hcl (Thiamine Hcl) (12/18/20 09:00) Magnesium Level (12/20/20 06:00) Magnesium Level (12/21/20 06:00) Folic Acid (Folic Acid) (12/18/20 09:00) Amlodipine (Norvasc) (12/18/20 09:00) Magnesium Level (12/18/20 05:19) Troponin (12/18/20 05:19) Fingerstick Blood Sugar (12/18/20 12:06) Mag Sulf 1gm/100ml (Mag Run) (Mag Sulf 1 (12/18/20 15:00) Calcium Gluconate (Calcium Gluconate) (12/18/20 15:00) Fingerstick Blood Sugar (12/18/20 17:54) Liver Profile (12/19/20 06:00) Acetone/Ketone (12/19/20 06:00) Magnesium Level (12/19/20 06:00) Fingerstick Blood Sugar (12/18/20 20:45) Plan Text 1. Diabetic ketoacidosis. Improving. KCl 20 Meq in 1/2NS.Decrease IVF rate now. 2. Hypokalemia: Oral and IV Kcl. 3. Acute renal failure superimposed on chronic kidney disease: Post ATN diuresis now. Encourage oral fluid intake now. IVF being decreased now. 4. Elevated troponin/NSTEMI: No anticoagulation due to +jani FOBT. Pt is on statins. Trop trending down. 5. Shock liver: Gradually improving. 6.Metabolic encephalopathy: Sec to Severe DKA, Acute renal failure with Acid, base, electrolyte abnormality. clinically much better now. 7. Persistent diarrhea: Improving now 8.Hypomagnesemia: IV Mg sulfate now. 9. Hypocalcemia: IV calcium gluconate now. Total critical care time excluding procedures was 35 min. CARLENE TUCKER MD Dec 18, 2020 23:33
[2020-12-19] VITALS: BP 149/80
[2020-12-19] MEDS: METOPROLOL TART 25 MG TABLET PO SCH ×2 (00:20→06:59)
[2020-12-19] MEDS: KCL 20MEQ IN 0.45NS 1000ML 1,000 ML IV SCH (00:20)
[2020-12-19] MEDS ORDERED: LORazepam 0.5 MG TAB PO ONE (00:35)
[2020-12-19 04:00] VITALS: BP 158/81
[2020-12-19 05:23] LABS: BASO % 0.6 % (0.0-1.0); EOS # 0.4 10^3/uL (0.0-0.5); EOS % 5.6 % (0.0-3.0); HEMATOCRIT 33.3 % (42.0-52.0); HEMOGLOBIN 11.5 g/dl (13.5-17.5); LYMPH # 0.7 10^3/uL (1.5-5.0); LYMPH % 10.1 % (24.0-44.0); MEAN CORPUSCULAR HEMOGLOBIN 32.7 pg (27.0-33.0); MEAN CORPUSCULAR HGB CONC 34.5 g/dl (32.0-36.5); MEAN CORPUSCULAR VOLUME 94.6 fl (80.0-96.0); MONO # 0.4 10^3/uL (0.0-0.8); MONO % 6.3 % (2.0-8.0); NEUTROPHILS # 5.3 10^3/uL (1.5-8.5); PLATELET COUNT, AUTOMATED 70 10^3/uL (150-450); RED BLOOD COUNT 3.52 10^6/uL (4.30-6.10); WHITE BLOOD COUNT 6.9 10^3/uL (4.0-10.0)
[2020-12-19 05:37] LABS: INR 1.1; PROTHROMBIN TIME 14.6 SECONDS (12.7-14.5)
[2020-12-19 05:48] LABS: ACETONE/KETONE 8.92 MG/DL (<2.81); ALT/SGPT 992 U/L (12-78); BILIRUBIN,DIRECT 0.5 MG/DL (0.0-0.2); BILIRUBIN,TOTAL 1.6 MG/DL (0.2-1.0); BLOOD UREA NITROGEN 20 MG/DL (7-18); CALCIUM LEVEL 6.9 MG/DL (8.5-10.1); CARBON DIOXIDE LEVEL 27 MEQ/L (21-32); CHLORIDE LEVEL 105 MEQ/L (98-107); CREATININE FOR GFR 1.27 MG/DL (0.70-1.30); GLOMERULAR FILTRATION RATE > 60.0 (>56); GLUCOSE, FASTING 241 MG/DL (70-100); MAGNESIUM LEVEL 1.3 MG/DL (1.8-2.4); POTASSIUM SERUM 3.5 MEQ/L (3.5-5.1); SODIUM LEVEL 139 MEQ/L (136-145); TOTAL PROTEIN 4.7 GM/DL (6.4-8.2)
[2020-12-19] MEDS ORDERED: LORazepam 2 MG TAB PO PRN (06:55)
[2020-12-19 06:59] VITALS: BP 166/98
[2020-12-19] MEDS ORDERED: PIPERACILLIN/TAZOBACTAM SOD 3.375 GM in D5W MINI-BAG PLUS 50 ML IV SCH (07:00)
[2020-12-19] MEDS ORDERED: CALCIUM GLUCONATE 1,000 MG in D5W MINI-BAG PLUS 100 ML IV ONE (08:00)
[2020-12-19] MEDS ORDERED: MAG SULF 1GM/100ML (MAG RUN) 1 GM in IV 1 EA IV SCH (09:00)
[2020-12-19] MEDS ORDERED: AUGM875T28 PO (09:13)
[2020-12-19] MEDS ORDERED: FOLI1TAB11 PO (09:13)
[2020-12-19] MEDS ORDERED: THIA100TA PO (09:13)
--- NOTE | 2020-12-19 19:03 | ECGEPIP ---
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
--- NOTE | 2020-12-26 23:27 | DS.PDOC ---
Discharge Summary General Date of Admission Dec 15, 2020 at 18:30 Date of Discharge 12/19/20 Discharge Summary PROCEDURES PERFORMED DURING STAY: [None]. DISCHARGE DIAGNOSES: DKA Acute respiratory failure with hypoxia SORAIDA on CKD stage 3 Hyperkalemia Severe metabolic acidosis Shock liver NSTEMI Ischemic Colitis Acute Metabolic encephalopathy Alcohol withdrawal Afib with RVR. SECONDARY DIAGNOSIS: Insulin-dependent diabetes, rheumatoid arthritis, hypertension, hyperlipidemia, GERD, COPD, smoker, alcohol use disorder COMPLICATIONS/CHIEF COMPLAINT: Dka (Diabetic Ketoacidosis). HOSPITAL COURSE: 55-year-old male with insulin-dependent diabetes, rheumatoid arthritis, hypertension, hyperlipidemia, GERD, COPD, smoker, alcohol use disorder presented to the emergency room with 1 day history of severe nausea, vomiting, unable to keep any food down, chest pain and shortness of breath. As per EMS patient was noted to be very restless and uncomfortable and when they checked the blood sugar it was high. Patient reports that he is glucometer broke down 2 days ago and so he has not been taking his insulin as he has not been able to check his blood sugar. On arrival to the ED patient's blood glucose level was 930. Patient was in severe high anion gap metabolic acidosis with a pH of 6.97, anion gap of 30. Patient was also in acute renal failure with a creatinine of 4.4 and hyperkalemic with a potassium of 7.1. Patient's EKG showed atrial fibrillation with controlled rate.Patient was admitted for DKA, acute renal failure, hyperkalemia, severe high anion gap metabolic acidosis with lactic acidosis. Hospital course complicated by GI bleed which is thought to be due to ischemic colitis, shock liver, a brief episode of A. fib with RVR needing 1 dose of amiodarone IV. DKA resolved on levemir and lispro Acute renal failure on chronic kidney disease stage III with hyperkalemia Baseline creatinine is about 1.5 Renal failure has resolved. Shock liver LFTs improving, INR not elevated., Ammonia normal We will continue to avoid hepatotoxic medications and hold Leflunomide, statins improving Alcohol use disorder with alcohol withdrawal now resolving as per life partner Osiris he drinks 4 times a week about 8 to 10 beers. Continue Thiamine and folate Acute respiratory failure with hypoxia on admission RR 26 to 28 and was needing 4 to 5 liters of oxygen since admission now needing 3 liters of oxygen GIB: patient had 2 bloody bowel movements overnight. CT abd and pelvis with increased fluid in the colon. consulted GI, discussed pt with Dr Burgos could be ischemic colitis from the hypotension, and has lactic acidosis, unlikely variceal bleed as with variceal bleed there will be significant drop in H/H continue zosyn. Elevated troponin likely NSTEMI. Patient is a diabetic so likely has underlying CAD continue statin, and aspirin and metoprolol Echo reviewed no regional wall motion abnormality, normal EF, LVH and grade 1 diastolic dysfunction will need referral to cardiology as outpatient. Severe high anion gap metabolic acidosis Due to diabetic ketoacidosis and lactic acidosis and acute renal failure Patient received bicarb, bicarb infusion. now resolved. Lactic acidosis Likely secondary to severe dehydration, hypotension with acute renal failure my also have ischemic colitis. Paroxysmal A. fib with episodes of RVR Undiagnosed before. Seen on EKG on admission Patient had a brief episode of A. fib with RVR on the night of 12/16/2020 and was given 1 dose of amiodarone Now in sinus rhythm. Anticoagulation not given due to GI bleed. COPD We will continue a steroid inhaler and albuterol as needed GERD We will continue PPI Hyperlipidemia Hold statin till LFTs have improved. Hypertension Continue metoprolol Anxiety and depression Continue sertraline Chronic back pain continue lyrica and tianidine. No NSAIDs or Tylenol DISCHARGE MEDICATIONS: Please see below. ALLERGIES: Please see below. PHYSICAL EXAMINATION ON DISCHARGE: VITAL SIGNS: Please see below. GENERAL:Positive: Alert, Cooperative, No Acute Distress, Other (still confused and restless) Eye Exam: Positive: PERRLA, Conjunctiva & lids normal, EOMI; Negative: Sclera icteric ENT Exam: Positive: Atraumatic, Mucous membr. moist/pink, Pharynx Normal Neck Exam: Positive: Supple; Negative: JVD, thyromegaly Chest Exam: Positive: Clear to auscultation, Normal air movement Heart Exam: Positive: Rate Normal, Regular Rhythm, Normal S1, Normal S2; Negative: Murmurs, Rubs Abdomen Exam: Positive: Normal bowel sounds, Soft, Tenderness Extremity Exam: Negative: Clubbing, Cyanosis, Edema Skin Exam: Positive: Nl turgor and temperature; Negative: Breakdown, Lesion Neuro Exam: Positive: Normal Speech, Strength at 5/5 X4 ext, Normal Tone Psych Exam: Positive: Memory Intact, Oriented x 3 LABORATORY DATA: Please see below. ACTIVITY: [As tolerated]. DIET: As tolerated DISPOSITION: 07 Against Medical Advice. DISCHARGE INSTRUCTIONS: PMD in 1 week Needs referral to to cardiology ITEMS TO FOLLOWUP ON ON OUTPATIENT: LFTs. DISCHARGE CONDITION: [Stable]. TIME SPENT ON DISCHARGE: 35 minutes. Discharge Medications Scheduled Amlodipine Besylate (Amlodipine Besylate) 5 Mg Tablet, 5 MG PO DAILY, (Reported) Amoxicillin/Potassium Clav (Augmentin 875-125 Tablet) 1 Each Tablet, 1 TAB PO BID Aspirin (Aspirin EC) 81 Mg Tablet.dr, 81 MG PO DAILY, (Reported) Atorvastatin Calcium (Atorvastatin Calcium) 40 Mg Tablet, 40 MG PO QHS, (Reported) Fluticasone Furoate (Arnuity Ellipta) 200 Mcg Blst.w.dev, 1 PUFF INH DAILY, (Reported) Folic Acid (Folic Acid) 1 Mg Tablet, 1 MG PO DAILY, (Reported) Folic Acid (Folic Acid) 1 Mg Tablet, 1 MG PO DAILY Insulin Glargine,Hum.rec.anlog (Basaglar Kwikpen U-100) 100 Unit/1 Ml Insuln.pen, 20 UNIT SC QAM, (Reported) Insulin Glargine,Hum.rec.anlog (Basaglar Kwikpen U-100) 100 Unit/1 Ml Insuln.pen, 40 UNIT SC QHS, (Reported) Insulin Lispro (Admelog) 100 Unit/1 Ml Vial, 10 UNIT SC AC, (Reported) Leflunomide (Leflunomide) 20 Mg Tablet, 20 MG PO DAILY, (Reported) Metoprolol Tartrate (Metoprolol Tartrate) 50 Mg Tablet, 50 MG PO BID, (Reported) Omeprazole (Omeprazole) 40 Mg Capsule.dr, 40 MG PO DAILY, (Reported) Pregabalin (Lyrica) 300 Mg Capsule, 300 MG PO BID, (Reported) Sertraline Hcl (Zoloft) 100 Mg Tablet, 100 MG PO DAILY, (Reported) Thiamine Hcl (Vitamin B-1) 100 Mg Tablet, 100 MG PO BID Zolpidem Tartrate (Zolpidem Tartrate) 10 Mg Tablet, 10 MG PO QHS, (Reported) Scheduled PRN Albuterol Sulfate (Albuterol Sulfate Hfa) 8.5 Gm Hfa.aer.ad, 2 PUFFS INH Q4H PRN for SOB/WHEEZING, (Reported) Tadalafil (Cialis) 5 Mg Tablet, 5 MG PO ASDIRECTED PRN for ERECTILE DYSFUNCTION, (Reported) Tizanidine HCl (Tizanidine HCl) 4 Mg Tablet, 4 MG PO Q8H PRN for SPASMS, (Reported) Allergies Coded Allergies: diphenhydramine (Verified Allergy, Intermediate, ITCHING, 01/26/20) Mera Kolb MD Dec 26, 2020 23:27
== END 2020-12-19 09:05 | disposition left against medical advice (07) | DRG 420 ==
LOC: EDBD 15:23 → M ED 15:23 → M ED INP 18:30 → ENRESERV 20:43 → M PCU 21:55
PROVIDERS: ADMIT Internal Medicine Nephrology; ATTEND Internal Medicine Nephrology
DX: E11.10 Type 2 diabetes mellitus with ketoacidosis without coma (principal); J96.01 Acute respiratory failure with hypoxia; I21.4 Non-ST elevation (NSTEMI) myocardial infarction; K72.00 Acute and subacute hepatic failure without coma; I95.9 Hypotension, unspecified; N17.9 Acute kidney failure, unspecified; E87.5 Hyperkalemia; K55.9 Vascular disorder of intestine, unspecified; N18.30 Chronic kidney disease, stage 3 unspecified; I48.20 Chronic atrial fibrillation, unspecified; E87.1 Hypo-osmolality and hyponatremia; I12.9 Hypertensive chronic kidney disease with stage 1 through stage 4 chronic kidney disease, or unspecified chronic kidney disease; E86.0 Dehydration; M06.9 Rheumatoid arthritis, unspecified; E78.5 Hyperlipidemia, unspecified; K21.9 Gastro-esophageal reflux disease without esophagitis; M54.9 Dorsalgia, unspecified; J44.9 Chronic obstructive pulmonary disease, unspecified; H40.9 Unspecified glaucoma; E11.22 Type 2 diabetes mellitus with diabetic chronic kidney disease; F41.9 Anxiety disorder, unspecified; F32.9 Major depressive disorder, single episode, unspecified; F10.139 Alcohol abuse with withdrawal, unspecified; T38.3X6A Underdosing of insulin and oral hypoglycemic [antidiabetic] drugs, initial encounter; F17.200 Nicotine dependence, unspecified, uncomplicated; Z91.14 Patient's other noncompliance with medication regimen; Z79.82 Long term (current) use of aspirin; Z79.899 Other long term (current) drug therapy; Z88.8 Allergy status to other drugs, medicaments and biological substances; Z79.4 Long term (current) use of insulin; Z20.822 Contact with and (suspected) exposure to COVID-19

== ENCOUNTER → 2020-12-22 | Outpatient (REF) | payer OTHER ==
[~2020-12-22] MED LIST changes: +ADME100I SC; +ALBU8.5H INH; +AMLO1TAB24 PO; +ARNU1INH3 INH; +ASPI-226 PO; +ATOR40TA75 PO; +AUGM875T28 PO; +BASA100I SC; +CIAL5TAB PO; +FOLI1TAB11 PO; +LEFL1TAB4 PO; +LYRI300C PO; +OMEP40CA4 PO; +THIA100TA PO; +ZOLO100T PO; +ZOLP10TA2 PO
== END ==
LOC: M LAB REF 17:38
PROVIDERS: ATTEND Internal Medicine Nephrology
DX: N18.2 Chronic kidney disease, stage 2 (mild) (principal)

== ENCOUNTER → 2021-01-17 | Outpatient (REF) | payer OTHER ==
[2021-01-17 14:06] LABS: FREE T3 2.7 PG/ML (2.2-4.0); FREE T4 0.76 NG/DL (0.76-1.46); MAGNESIUM LEVEL 1.9 MG/DL (1.8-2.4); THYROID STIMULATING HORMONE 2.23 uIU/ML (0.358-3.740)
== END ==
LOC: M LAB REF 13:13
PROVIDERS: ATTEND Nurse Practitioner Family
DX: R53.83 Other fatigue (principal); N18.2 Chronic kidney disease, stage 2 (mild)

== ENCOUNTER → 2021-02-17 | Outpatient (CLI) | payer OTHER | LOC: M WUC 11:14 | PROVIDERS: ATTEND Internal Medicine Rheumatology | DX: M05.79 Rheumatoid arthritis with rheumatoid factor of multiple sites without organ or systems involvement (principal) ==

== ENCOUNTER → 2021-04-14 | Outpatient (CLI) | payer OTHER ==
[~2021-04-14] MED LIST changes: +LOSA100T45 PO; -LOSA100T50 PO; +TIZA10TA PO; -TIZA4TAB4 PO
== END ==
LOC: M RAD 09:34
PROVIDERS: ATTEND Nurse Practitioner Family
DX: R33.9 Retention of urine, unspecified (principal)

== ENCOUNTER → 2021-04-14 | Outpatient (CLI) | payer OTHER ==
[2021-04-14 10:46] LABS: BASO % 0.9 % (0.0-1.0); EOS # 0.2 10^3/uL (0.0-0.5); EOS % 4.6 % (0.0-3.0); HEMATOCRIT 41.2 % (42.0-52.0); HEMOGLOBIN 13.5 g/dl (13.5-17.5); LYMPH # 1.1 10^3/uL (1.5-5.0); LYMPH % 33.1 % (24.0-44.0); MEAN CORPUSCULAR HEMOGLOBIN 31.4 pg (27.0-33.0); MEAN CORPUSCULAR HGB CONC 32.8 g/dl (32.0-36.5); MEAN CORPUSCULAR VOLUME 95.8 fl (80.0-96.0); MONO # 0.8 10^3/uL (0.0-0.8); MONO % 23.1 % (2.0-8.0); NEUTROPHILS # 1.3 10^3/uL (1.5-8.5); PLATELET COUNT, AUTOMATED 142 10^3/uL (150-450); WHITE BLOOD COUNT 3.3 10^3/uL (4.0-10.0)
[2021-04-14 11:15] LABS: ERYTHROCYTE SEDIMENTATION RATE 12 mm/hr (0-20)
[2021-04-14 11:16] LABS: BILIRUBIN,TOTAL 0.4 MG/DL (0.2-1.0); C REACTIVE PROTEIN QUANTITATIV 0.3 MG/DL (0.00-0.30); CALCIUM LEVEL 8.1 MG/DL (8.5-10.1); CREATININE FOR GFR 1.37 MG/DL (0.70-1.30); POTASSIUM SERUM 4.1 MEQ/L (3.5-5.1); TOTAL PROTEIN 5.9 GM/DL (6.4-8.2)
== END ==
LOC: M LAB 10:15
PROVIDERS: ATTEND Internal Medicine Rheumatology
DX: M05.79 Rheumatoid arthritis with rheumatoid factor of multiple sites without organ or systems involvement (principal)

== ENCOUNTER → 2021-05-03 | Outpatient (CLI) | payer OTHER ==
[2021-05-03 10:33] LABS: BASO # 0.1 10^3/uL (0.0-0.2); BASO % 0.8 % (0.0-1.0); EOS # 0.2 10^3/uL (0.0-0.5); EOS % 2.4 % (0.0-3.0); HEMATOCRIT 42.6 % (42.0-52.0); LYMPH # 1.4 10^3/uL (1.5-5.0); LYMPH % 19.7 % (24.0-44.0); MEAN CORPUSCULAR HGB CONC 32.9 g/dl (32.0-36.5); MEAN CORPUSCULAR VOLUME 94.5 fl (80.0-96.0); MONO % 14.6 % (2.0-8.0); NEUTROPHILS # 4.4 10^3/uL (1.5-8.5); NEUTROPHILS % 61.9 % (36.0-66.0); PLATELET COUNT, AUTOMATED 286 10^3/uL (150-450); RED BLOOD COUNT 4.51 10^6/uL (4.30-6.10); WHITE BLOOD COUNT 7.1 10^3/uL (4.0-10.0)
== END ==
LOC: M LAB 09:58
PROVIDERS: ATTEND Internal Medicine Rheumatology
DX: D72.819 Decreased white blood cell count, unspecified (principal)

== ENCOUNTER 2021-05-30 06:16 | Emergency (ER) | payer OTHER ==
[~2021-05-30] VITALS: Ht 170.2 cm; Wt 90.9 kg
[2021-05-30] MEDS ORDERED: MORPHINE 4 MG/ML 1ML VIAL/SYRINGE IV ONE (06:40)
[2021-05-30] MEDS ORDERED: NS 1,000 ML IV ONE (06:40)
[2021-05-30 07:22] LABS: HEMATOCRIT 36.7 % (42.0-52.0); HEMOGLOBIN 12.4 g/dl (13.5-17.5); MEAN CORPUSCULAR HEMOGLOBIN 31.6 pg (27.0-33.0); MEAN CORPUSCULAR HGB CONC 33.8 g/dl (32.0-36.5); MEAN CORPUSCULAR VOLUME 93.4 fl (80.0-96.0); PLATELET COUNT, AUTOMATED 186 10^3/uL (150-450); RED BLOOD COUNT 3.93 10^6/uL (4.30-6.10); WHITE BLOOD COUNT 9.1 10^3/uL (4.0-10.0)
[2021-05-30 07:54] LABS: BILIRUBIN,DIRECT 0.3 MG/DL (0.0-0.2); BILIRUBIN,TOTAL 0.9 MG/DL (0.2-1.0); CALCIUM LEVEL 8.6 MG/DL (8.5-10.1); CREATININE FOR GFR 1.9 MG/DL (0.70-1.30); GLOMERULAR FILTRATION RATE 39.1 (>56); POTASSIUM SERUM 4.2 MEQ/L (3.5-5.1); TOTAL PROTEIN 6.4 GM/DL (6.4-8.2)
[2021-05-30 07:57] LABS: ATYPICAL LYMPH 3 % (0-5); LYMPHOCYTES 13 % (16-44); MONOCYTES 4 % (0-5); MYELOCYTES 1 % (0-0); NEUTROPHILS 49 % (28-66)
[2021-05-30 07:58] LABS: PLATELET ESTIMATE NORMAL (NORMAL)
[2021-05-30 08:46] VITALS: BP 114/56
[2021-05-30] MEDS ORDERED: HYDR-3713 PO (09:54)
== END 2021-05-30 09:18 | disposition left against medical advice (07) ==
LOC: M ED 06:16
DX: S22.42XA Multiple fractures of ribs, left side, initial encounter for closed fracture (principal); Y92.9 Unspecified place or not applicable; Y93.9 Activity, unspecified; Y99.9 Unspecified external cause status; R55 Syncope and collapse; N17.9 Acute kidney failure, unspecified; E86.0 Dehydration; Z88.8 Allergy status to other drugs, medicaments and biological substances
CPT/HCPCS: 71101; 80048; 80076; 83690; 85025; 93005; 93041; 96374; 99284; J2270

== ENCOUNTER 2021-06-05 09:24 | Emergency (ER) | payer OTHER ==
[~2021-06-05] VITALS: Ht 170.2 cm; Wt 92.9 kg
[~2021-06-05 09:24] MED LIST changes: +HYDR-3713 PO
[2021-06-05] MEDS ORDERED: NS 1,000 ML IV ONE (11:30)
[2021-06-05] MEDS ORDERED: PERCOCET 5MG/325MG TAB PO ONE (11:30)
[2021-06-05 12:09] LABS: BASO % 0.4 % (0.0-1.0); EOS # 0.2 10^3/uL (0.0-0.5); EOS % 1.4 % (0.0-3.0); HEMATOCRIT 40.4 % (42.0-52.0); HEMOGLOBIN 13.2 g/dl (13.5-17.5); LYMPH # 1.1 10^3/uL (1.5-5.0); LYMPH % 9.8 % (24.0-44.0); MEAN CORPUSCULAR HEMOGLOBIN 30.8 pg (27.0-33.0); MEAN CORPUSCULAR HGB CONC 32.7 g/dl (32.0-36.5); MEAN CORPUSCULAR VOLUME 94.2 fl (80.0-96.0); MONO # 1.2 10^3/uL (0.0-0.8); NEUTROPHILS # 8.3 10^3/uL (1.5-8.5); NEUTROPHILS % 76.8 % (36.0-66.0); PLATELET COUNT, AUTOMATED 308 10^3/uL (150-450); RED BLOOD COUNT 4.29 10^6/uL (4.30-6.10); WHITE BLOOD COUNT 10.9 10^3/uL (4.0-10.0)
[2021-06-05] MEDS ORDERED: MORPHINE 4 MG/ML 1ML VIAL/SYRINGE IV ONE (12:15)
[2021-06-05 12:27] LABS: ALBUMIN 2.9 GM/DL (3.2-5.2); BILIRUBIN,DIRECT 0.1 MG/DL (0.0-0.2); BILIRUBIN,TOTAL 0.5 MG/DL (0.2-1.0); TOTAL PROTEIN 6.4 GM/DL (6.4-8.2)
[2021-06-05 12:45] LABS: MONO SCRN NEGATIVE (NEGATIVE)
[2021-06-05] MEDS ORDERED: PERC5TAB12 PO (13:24)
[2021-06-05 13:58] VITALS: BP 164/91
== END 2021-06-05 14:02 | disposition home or self-care (01) ==
LOC: M ED 09:24
DX: S22.42XA Multiple fractures of ribs, left side, initial encounter for closed fracture (principal); S20.212A Contusion of left front wall of thorax, initial encounter; W01.198A Fall on same level from slipping, tripping and stumbling with subsequent striking against other object, initial encounter; Y92.018 Other place in single-family (private) house as the place of occurrence of the external cause; E11.9 Type 2 diabetes mellitus without complications; I10 Essential (primary) hypertension; J44.9 Chronic obstructive pulmonary disease, unspecified; E78.5 Hyperlipidemia, unspecified; N28.9 Disorder of kidney and ureter, unspecified; Z87.440 Personal history of urinary (tract) infections; Z88.8 Allergy status to other drugs, medicaments and biological substances; Z79.899 Other long term (current) drug therapy; Z79.82 Long term (current) use of aspirin; Z79.51 Long term (current) use of inhaled steroids; F17.210 Nicotine dependence, cigarettes, uncomplicated
CPT/HCPCS: 71101; 80047; 80076; 83690; 85025; 86308; 96361; 96374; 99284; J2270

== ENCOUNTER 2021-06-20 06:01 | Emergency (ER) | payer OTHER ==
[~2021-06-20] VITALS: Ht 170.2 cm; Wt 72.7 kg
[2021-06-20] MEDS ORDERED: CALCIUM GLUCONATE 1,000 MG in D5W MINI-BAG PLUS 100 ML IV ONE (06:40)
[2021-06-20] MEDS ORDERED: HumuLIN R (REGULAR) INSULIN (NovoLIN R) **100U/ML** PER UNIT IV ONE (06:40)
[2021-06-20 06:41] LABS: ABG BASE EXCESS -26.8 (-2.0-2.0); ABG HCO3 5.3 MEQ/L (22.0-26.0); ABG O2 SATURATION 85.8 % (95.0-99.0); ABG PARTIAL PRESSURE CO2 29.3 mmHg (35.0-45.0); ABG PARTIAL PRESSURE O2 84.9 mmHg (75.0-100.0); ABG STANDARD HCO3 5.3 MEQ/L (22.0-26.0); ABG TOTAL CO2 6.2 MEQ/L (22.0-29.0)
[2021-06-20 06:44] LABS: ABG pH (ARTERIAL) 6.872 UNITS (7.350-7.450)
[2021-06-20] MEDS ORDERED: NS 1,000 ML IV ONE ×5 (06:45→13:00)
[2021-06-20] MEDS ORDERED: INSULIN REGULAR IN 0.9 % NACL 100 UNIT in IV 1 EA IV SCH ×2 (06:50)
[2021-06-20] MEDS ORDERED: SODIUM BICARBONATE 8.4% INJ 50 ML SYRINGE IV ONE (06:50)
[2021-06-20] MEDS ORDERED: INSULIN IV RATE CHANGE DOCUMENTATION ML/HR XX SCH (06:50)
[2021-06-20 06:53] LABS: HEMATOCRIT 39.2 % (42.0-52.0); HEMOGLOBIN 10.5 g/dl (13.5-17.5); MEAN CORPUSCULAR HEMOGLOBIN 31.2 pg (27.0-33.0); MEAN CORPUSCULAR HGB CONC 26.8 g/dl (32.0-36.5); PLATELET COUNT, AUTOMATED 280 10^3/uL (150-450); RED BLOOD COUNT 3.37 10^6/uL (4.30-6.10); WHITE BLOOD COUNT 19.2 10^3/uL (4.0-10.0)
[2021-06-20 06:58] LABS: VENOUS HCO3 5.7 MEQ/L (23.0-27.0); VENOUS O2 SATURATION 71.8 % (60.0-80.0); VENOUS PARTIAL PRESSURE CO2 33.6 mmHg (38.0-50.0); VENOUS PARTIAL PRESSURE O2 61.2 mmHg (30.0-50.0); VENOUS PH 6.848 UNITS (7.330-7.430); VENOUS STANDARD HCO3 5.2 MEQ/L; VENOUS TOTAL CO2 6.7 MEQ/L (24.0-28.0)
[2021-06-20 07:00] LABS: MEAN CORPUSCULAR VOLUME 116.3 fl (80.0-96.0)
[2021-06-20 07:31] LABS: ACETONE/KETONE > 46.00 MG/DL (<2.81); ALBUMIN 3.1 GM/DL (3.2-5.2); ALT/SGPT 73 U/L (12-78); BILIRUBIN,DIRECT 0.6 MG/DL (0.0-0.2); BLOOD UREA NITROGEN 50 MG/DL (7-18); CALCIUM LEVEL 9.2 MG/DL (8.5-10.1); CARBON DIOXIDE LEVEL 8 MEQ/L (21-32); CHLORIDE LEVEL 81 MEQ/L (98-107); CREATININE FOR GFR 4.67 MG/DL (0.70-1.30); ETHYL ALCOHOL (ETHANOL) < 0.003 % (0.000-0.010); GLOMERULAR FILTRATION RATE 13.8 (>56); GLUCOSE, FASTING 1146 MG/DL (70-100); LIPASE 16 U/L (73-393); SODIUM LEVEL 120 MEQ/L (136-145); TOTAL PROTEIN 6.2 GM/DL (6.4-8.2)
[2021-06-20 07:43] LABS: POTASSIUM SERUM 8.1 MEQ/L (3.5-5.1)
[2021-06-20 07:44] LABS: HEMOGLOBIN A1c 7.8 %
[2021-06-20] MEDS ORDERED: LIDOCAINE 2% 5ML JELLY UROJET TOP ONE (07:50)
[2021-06-20 07:57] LABS: OSMOLALITY SERUM 363 MOSM/KG (275-295)
[2021-06-20 08:01] LABS: LYMPHOCYTES 17 % (16-44); METAMYELOCYTES 1 % (0-0); MONOCYTES 2 % (0-5); NEUTROPHILS 77 % (28-66); PLATELET ESTIMATE NORMAL (NORMAL)
[2021-06-20 08:04] LABS: CK-MB VALUE MASS 89.7 NG/ML (<3.6); MB/CK RELATIVE INDEX 1.34 (< OR =4)
[2021-06-20] MEDS ORDERED: cefTRIAXone SOD 2 GM in D5W MINI-BAG PLUS 50 ML IV ONE (08:10)
[2021-06-20 08:39] LABS: AMPHETAMINES LEVEL URINE NEGATIVE (NEGATIVE); BARBITURATES URINE NEGATIVE (NEGATIVE); BENZODIAZEPINES URINE NEGATIVE (NEGATIVE); CANNABINOIDS URINE NEGATIVE (NEGATIVE); COCAINE METABOLITE URINE NEGATIVE (NEGATIVE); METHADONE URINE NEGATIVE (NEGATIVE); OPIATES URINE NEGATIVE (NEGATIVE); PHENCYCLIDINE URINE NEGATIVE (NEGATIVE)
[2021-06-20 09:12] LABS: CALCIUM LEVEL 9.1 MG/DL (8.5-10.1); CREATININE FOR GFR 4.79 MG/DL (0.70-1.30); GLOMERULAR FILTRATION RATE 13.4 (>56); POTASSIUM SERUM 6.4 MEQ/L (3.5-5.1)
[2021-06-20 09:35] LABS: CK-MB VALUE MASS 133.3 NG/ML (<3.6); MB/CK RELATIVE INDEX 1.29 (< OR =4)
[2021-06-20 10:31] LABS: ABG BASE EXCESS -18.8 (-2.0-2.0); ABG HCO3 9.5 MEQ/L (22.0-26.0); ABG O2 SATURATION 92.9 % (95.0-99.0); ABG PARTIAL PRESSURE CO2 30.9 mmHg (35.0-45.0); ABG PARTIAL PRESSURE O2 113.5 mmHg (75.0-100.0); ABG STANDARD HCO3 10.1 MEQ/L (22.0-26.0); ABG TOTAL CO2 10.4 MEQ/L (22.0-29.0)
[2021-06-20 10:32] LABS: ABG pH (ARTERIAL) 7.104 UNITS (7.350-7.450)
[2021-06-20] MEDS ORDERED: LORazepam 2 MG/ML VIAL IV STA (11:19)
[2021-06-20 11:49] LABS: CREATININE FOR GFR 4.79 MG/DL (0.70-1.30); GLOMERULAR FILTRATION RATE 13.4 (>56); POTASSIUM SERUM 6.4 MEQ/L (3.5-5.1)
[2021-06-20] MEDS ORDERED: ASPIRIN 300 MG SUPP PR ONE (12:05)
[2021-06-20] MEDS ORDERED: HEPARIN SOD (PORCINE) 5000UNITS/ML 1ML VIAL/SYRINGE IV ONE (12:45)
[2021-06-20] MEDS ORDERED: HEPARIN DRIP 25,000 UNITS in IV 1 EA IV SCH (12:45)
[2021-06-20] MEDS ORDERED: NS 1,000 ML IV SCH (12:55)
[2021-06-20] MEDS ORDERED: ONDANSETRON 4MG/2ML VIAL IV ONE (12:55)
[2021-06-20] MEDS ORDERED: ONDANSETRON 4MG/2ML VIAL As Ordered ONE (12:56)
[2021-06-20 13:03] LABS: CK-MB VALUE MASS 220.9 NG/ML (<3.6); MB/CK RELATIVE INDEX 1.17 (< OR =4)
[2021-06-20 14:00] LABS: BASO % 0.3 % (0.0-1.0); EOS % 0.2 % (0.0-3.0); HEMATOCRIT 31.4 % (42.0-52.0); HEMOGLOBIN 9.8 g/dl (13.5-17.5); LYMPH # 1.5 10^3/uL (1.5-5.0); LYMPH % 12.2 % (24.0-44.0); MEAN CORPUSCULAR HEMOGLOBIN 30.7 pg (27.0-33.0); MEAN CORPUSCULAR HGB CONC 31.2 g/dl (32.0-36.5); MEAN CORPUSCULAR VOLUME 98.4 fl (80.0-96.0); MONO # 0.6 10^3/uL (0.0-0.8); MONO % 4.5 % (2.0-8.0); NEUTROPHILS % 80.2 % (36.0-66.0); PLATELET COUNT, AUTOMATED 191 10^3/uL (150-450); RED BLOOD COUNT 3.19 10^6/uL (4.30-6.10); WHITE BLOOD COUNT 12.4 10^3/uL (4.0-10.0)
[2021-06-20 14:29] LABS: CALCIUM LEVEL 7.8 MG/DL (8.5-10.1); CREATININE FOR GFR 4.8 MG/DL (0.70-1.30); GLOMERULAR FILTRATION RATE 13.4 (>56); POTASSIUM SERUM 6.1 MEQ/L (3.5-5.1)
[2021-06-20 15:10] LABS: INR 2.24; PROTHROMBIN TIME 25.2 SECONDS (12.7-14.5)
[2021-06-20 15:30] LABS: PARTIAL THROMBOPLASTIN TIME 177.1 SECONDS (25.9-37.0)
[2021-06-20 15:41] LABS: MB/CK RELATIVE INDEX 1.49 (< OR =4)
[2021-06-20 16:13] VITALS: BP 121/57
== END 2021-06-20 16:30 | disposition short-term general hospital (02) ==
LOC: M ED 06:01
DX: I21.4 Non-ST elevation (NSTEMI) myocardial infarction (principal); N17.9 Acute kidney failure, unspecified; E11.10 Type 2 diabetes mellitus with ketoacidosis without coma; E87.5 Hyperkalemia; I10 Essential (primary) hypertension; E78.5 Hyperlipidemia, unspecified; F33.9 Major depressive disorder, recurrent, unspecified; K21.9 Gastro-esophageal reflux disease without esophagitis; Z79.899 Other long term (current) drug therapy; Z79.4 Long term (current) use of insulin; Z79.82 Long term (current) use of aspirin; Z88.8 Allergy status to other drugs, medicaments and biological substances
CPT/HCPCS: 36600; 51702; 71045; 80047; 80048; 80076; 80307; 81001; 82010; 82077; 82550; 82553; 82803; 83036; 83690; 83930; 85025; 85610; 85730; 86850; 86900; 86901; 87040; 87505; 87798; 93005; 93041; 96361; 96365; 96366; 96367; 96375; 96376; 99285; J0610; J0696; J1644; J1815; J2060; J2405

== ENCOUNTER 2021-07-07 13:11 | Emergency (ER) | payer OTHER ==
[2021-07-07] MEDS ORDERED: NS 1,000 ML IV ONE (14:45)
[2021-07-07 16:44] LABS: MB/CK RELATIVE INDEX 9.43 (< OR =4)
[2021-07-07 16:54] LABS: BASO # 0.1 10^3/uL (0.0-0.2); BASO % 1.5 % (0.0-1.0); EOS # 0.1 10^3/uL (0.0-0.5); EOS % 2.8 % (0.0-3.0); HEMATOCRIT 31.7 % (42.0-52.0); HEMOGLOBIN 10.4 g/dl (13.5-17.5); LYMPH # 1.4 10^3/uL (1.5-5.0); LYMPH % 29.5 % (24.0-44.0); MEAN CORPUSCULAR HGB CONC 32.8 g/dl (32.0-36.5); MEAN CORPUSCULAR VOLUME 94.6 fl (80.0-96.0); MONO # 0.8 10^3/uL (0.0-0.8); MONO % 17.4 % (2.0-8.0); NEUTROPHILS # 2.3 10^3/uL (1.5-8.5); NEUTROPHILS % 48.4 % (36.0-66.0); PLATELET COUNT, AUTOMATED 357 10^3/uL (150-450); RED BLOOD COUNT 3.35 10^6/uL (4.30-6.10); WHITE BLOOD COUNT 4.7 10^3/uL (4.0-10.0)
[2021-07-07 16:55] LABS: VENOUS BASE EXCESS -0.1 (-2.0-2.0); VENOUS HCO3 25.3 MEQ/L (23.0-27.0); VENOUS O2 SATURATION 96.7 % (60.0-80.0); VENOUS PARTIAL PRESSURE CO2 44.4 mmHg (38.0-50.0); VENOUS PARTIAL PRESSURE O2 168.4 mmHg (30.0-50.0); VENOUS PH 7.373 UNITS (7.330-7.430); VENOUS STANDARD HCO3 24.4 MEQ/L; VENOUS TOTAL CO2 26.6 MEQ/L (24.0-28.0)
[2021-07-07 17:00] VITALS: BP 156/70
[2021-07-07 17:11] LABS: HEMOGLOBIN A1c 7.3 %
[2021-07-07 17:20] LABS: OSMOLALITY SERUM 297 MOSM/KG (275-295)
[2021-07-07 17:26] LABS: ACETONE/KETONE 2.76 MG/DL (<2.81); ALBUMIN 2.9 GM/DL (3.2-5.2); ALT/SGPT 50 U/L (12-78); BILIRUBIN,DIRECT 0.2 MG/DL (0.0-0.2); BILIRUBIN,TOTAL 0.4 MG/DL (0.2-1.0); BLOOD UREA NITROGEN 25 MG/DL (7-18); CALCIUM LEVEL 9.6 MG/DL (8.5-10.1); CARBON DIOXIDE LEVEL 29 MEQ/L (21-32); CHLORIDE LEVEL 108 MEQ/L (98-107); CREATININE FOR GFR 1.33 MG/DL (0.70-1.30); ETHYL ALCOHOL (ETHANOL) < 0.003 % (0.000-0.010); GLUCOSE, FASTING 84 MG/DL (70-100); LIPASE 85 U/L (73-393); POTASSIUM SERUM 3.7 MEQ/L (3.5-5.1); SODIUM LEVEL 142 MEQ/L (136-145); TOTAL PROTEIN 6.4 GM/DL (6.4-8.2)
[2021-07-07 17:42] LABS: RSV AMPLIFICATION NEGATIVE (NEGATIVE)
== END 2021-07-07 18:26 | disposition left against medical advice (07) ==
LOC: M ED 13:11
DX: R41.82 Altered mental status, unspecified (principal); E11.9 Type 2 diabetes mellitus without complications; I10 Essential (primary) hypertension; F33.9 Major depressive disorder, recurrent, unspecified; E78.5 Hyperlipidemia, unspecified; K21.9 Gastro-esophageal reflux disease without esophagitis; Z95.5 Presence of coronary angioplasty implant and graft; Z88.8 Allergy status to other drugs, medicaments and biological substances; Z79.899 Other long term (current) drug therapy; Z79.82 Long term (current) use of aspirin; Z79.4 Long term (current) use of insulin

== ENCOUNTER 2021-07-12 21:01 | Inpatient (IN) | payer OTHER ==
[~2021-07-12] VITALS: Ht 182.9 cm; Wt 79.3 kg
[2021-07-12] MEDS ORDERED: NS 1,000 ML IV ONE (21:10)
[2021-07-12 21:35] LABS: BASO # 0.1 10^3/uL (0.0-0.2); BASO % 1.1 % (0.0-1.0); EOS # 0.2 10^3/uL (0.0-0.5); EOS % 3.4 % (0.0-3.0); HEMATOCRIT 36.3 % (42.0-52.0); HEMOGLOBIN 12.1 g/dl (13.5-17.5); LYMPH # 1.6 10^3/uL (1.5-5.0); LYMPH % 29.3 % (24.0-44.0); MEAN CORPUSCULAR HEMOGLOBIN 30.9 pg (27.0-33.0); MEAN CORPUSCULAR HGB CONC 33.3 g/dl (32.0-36.5); MEAN CORPUSCULAR VOLUME 92.6 fl (80.0-96.0); MONO % 18.5 % (2.0-8.0); NEUTROPHILS # 2.5 10^3/uL (1.5-8.5); NEUTROPHILS % 47.3 % (36.0-66.0); PLATELET COUNT, AUTOMATED 378 10^3/uL (150-450); RED BLOOD COUNT 3.92 10^6/uL (4.30-6.10); WHITE BLOOD COUNT 5.4 10^3/uL (4.0-10.0)
[2021-07-12 22:10] LABS: CK-MB VALUE MASS 11.2 NG/ML (<3.6); MB/CK RELATIVE INDEX 6.33 (< OR =4)
[2021-07-12 22:33] LABS: ACETAMINOPHEN LEVEL < 2.0 UG/ML (10.0-30.0); ALBUMIN 3.3 GM/DL (3.2-5.2); ALT/SGPT 30 U/L (12-78); BILIRUBIN,DIRECT 0.1 MG/DL (0.0-0.2); BILIRUBIN,TOTAL 0.5 MG/DL (0.2-1.0); BLOOD UREA NITROGEN 34 MG/DL (7-18); CALCIUM LEVEL 10.3 MG/DL (8.5-10.1); CARBON DIOXIDE LEVEL 26 MEQ/L (21-32); CHLORIDE LEVEL 105 MEQ/L (98-107); CREATININE FOR GFR 1.62 MG/DL (0.70-1.30); ETHYL ALCOHOL (ETHANOL) < 0.003 % (0.000-0.010); GLUCOSE, FASTING 77 MG/DL (70-100); NT-PRO BNP 1715 PG/ML (<125); POTASSIUM SERUM 4.2 MEQ/L (3.5-5.1); SALICYLATE LEVEL 4.3 MG/DL (5.0-30.0); SODIUM LEVEL 140 MEQ/L (136-145); TOTAL PROTEIN 7.4 GM/DL (6.4-8.2)
[2021-07-12 23:26] LABS: CK-MB VALUE MASS 10.7 NG/ML (<3.6); MB/CK RELATIVE INDEX 4.65 (< OR =4)
[2021-07-12] MEDS ORDERED: LORazepam 2 MG/ML VIAL IV STA (23:57)
[2021-07-13] VITALS (8 sets, daily range): BP systolic 130–198; BP diastolic 60–109
[2021-07-13] MEDS ORDERED: NS 1,000 ML IV SCH (01:00)
[2021-07-13] MEDS ORDERED: GLUCOSE 4GM CHEW TABLET PO PRN (01:00)
[2021-07-13] MEDS ORDERED: GLUCAGON INJ 1MG VIAL SC PRN (01:00)
[2021-07-13] MEDS ORDERED: NS 1,000 ML IV ONE (01:00)
[2021-07-13] MEDS ORDERED: ADME100I SC (01:35)
[2021-07-13] MEDS ORDERED: LYRI300C PO (01:35)
[2021-07-13] MEDS ORDERED: FOLI1TAB11 PO (01:35)
[2021-07-13] MEDS ORDERED: GLUC1KIT IM (01:35)
[2021-07-13] MEDS ORDERED: NICOINH INH (01:35)
[2021-07-13] MEDS ORDERED: OMEP40CA5 PO (01:35)
[2021-07-13] MEDS ORDERED: ASPI-161 PO (01:35)
[2021-07-13] MEDS ORDERED: BENI5TAB3 PO (01:35)
[2021-07-13] MEDS ORDERED: ZOLO100T PO (01:35)
[2021-07-13] MEDS ORDERED: METO50TA7 PO (01:35)
[2021-07-13] MEDS ORDERED: TIZA10TA PO (01:35)
[2021-07-13] MEDS ORDERED: AMLO1TAB24 PO (01:35)
[2021-07-13] MEDS ORDERED: ATOR40TA75 PO (01:35)
[2021-07-13] MEDS ORDERED: MAGN400T2 PO (01:35)
[2021-07-13] MEDS ORDERED: ZOLP10TA2 PO (01:35)
[2021-07-13] MEDS ORDERED: ARNU1INH3 INH (01:35)
[2021-07-13] MEDS ORDERED: BASA100I SC ×2 (01:35)
[2021-07-13] MEDS ORDERED: ALBU8.5H INH (01:35)
[2021-07-13] MEDS ORDERED: LEFL1TAB4 PO (01:35)
[2021-07-13] MEDS ORDERED: BUPR75TA5 PO (01:35)
[2021-07-13] MEDS ORDERED: PATIENT COMMENT (01:36)
[2021-07-13] MEDS ORDERED: HOME MED LIST COMPLETE! XX SCH (01:40)
[2021-07-13] MEDS ORDERED: OLANZapine INTRAMUSCULAR 10MG VIAL IM ONE ×3 (05:00→20:15)
[2021-07-13] MEDS: HEPARIN SOD (PORCINE) 5000UNITS/ML 1ML VIAL/SYRINGE SC SCH ×3 (06:00→21:09)
[2021-07-13 07:45] LABS: HEMATOCRIT 34.6 % (42.0-52.0); HEMOGLOBIN 11.4 g/dl (13.5-17.5); MEAN CORPUSCULAR HEMOGLOBIN 30.5 pg (27.0-33.0); MEAN CORPUSCULAR HGB CONC 32.9 g/dl (32.0-36.5); MEAN CORPUSCULAR VOLUME 92.5 fl (80.0-96.0); PLATELET COUNT, AUTOMATED 348 10^3/uL (150-450); RED BLOOD COUNT 3.74 10^6/uL (4.30-6.10); WHITE BLOOD COUNT 5.5 10^3/uL (4.0-10.0)
[2021-07-13 08:02] LABS: INR 1.06; PROTHROMBIN TIME 14.2 SECONDS (12.7-14.5)
[2021-07-13 08:03] LABS: PARTIAL THROMBOPLASTIN TIME 29.5 SECONDS (25.9-37.0)
[2021-07-13 08:08] LABS: BILIRUBIN,TOTAL 0.6 MG/DL (0.2-1.0); CALCIUM LEVEL 9.5 MG/DL (8.5-10.1); CREATININE FOR GFR 1.38 MG/DL (0.70-1.30); GLOMERULAR FILTRATION RATE 56.5 (>56); POTASSIUM SERUM 4.4 MEQ/L (3.5-5.1); TOTAL PROTEIN 6.7 GM/DL (6.4-8.2)
[2021-07-13 08:31] LABS: AMPHETAMINES LEVEL URINE NEGATIVE (NEGATIVE); BARBITURATES URINE NEGATIVE (NEGATIVE); BENZODIAZEPINES URINE NEGATIVE (NEGATIVE); CANNABINOIDS URINE NEGATIVE (NEGATIVE); COCAINE METABOLITE URINE NEGATIVE (NEGATIVE); METHADONE URINE NEGATIVE (NEGATIVE); OPIATES URINE NEGATIVE (NEGATIVE); PHENCYCLIDINE URINE NEGATIVE (NEGATIVE)
[2021-07-13] MEDS: OMEPRAZOLE 20MG CAP PO SCH (08:41)
[2021-07-13] MEDS: MULTIVITAMINS/MINERALS THERAP 1 TAB PO SCH (08:41)
[2021-07-13] MEDS: THIAMINE 100 MG TAB PO SCH ×2 (08:41→21:00)
[2021-07-13] MEDS: amLODIPine 5 MG TAB PO SCH (08:42)
[2021-07-13] MEDS: ASPIRIN 81MG ENTERIC TABLET PO SCH (08:42)
[2021-07-13] MEDS: FOLIC ACID 1 MG TAB PO SCH (08:42)
[2021-07-13] MEDS: METOPROLOL TART 50 MG TAB PO SCH ×2 (08:42→21:00)
[2021-07-13] MEDS ORDERED: LEVEMIR (INSULIN DETEMIR) 1 UNITS/0.01ML SC SCH (09:00)
[2021-07-13] MEDS: INSULIN LISPRO (NovoLOG) PER UNIT SC SCH ×4 (09:32→20:43)
[2021-07-13] MEDS: hydrALAZINE 20MG/ML 1ML VIAL (J0360 PER 20MG) IV PRN (10:15)
[2021-07-13] MEDS ORDERED: ALBUTEROL 90 MCG/ACT 8GM HFA INHALER INH PRN (13:30)
[2021-07-13] MEDS: MAGNESIUM OXIDE 400MG TAB (MAG-OX) PO SCH (14:55)
[2021-07-13] MEDS ORDERED: PILL CUTTER 1 EACH XX PRN (15:00)
[2021-07-13] MEDS: OLMESARTAN MEDOXOMIL 20 MG TAB (BENICAR) PO SCH (16:02)
[2021-07-13] MEDS ORDERED: HALOPERIDOL 5MG/ML VIAL (J1630 PER 1) IV ONE (18:15)
[2021-07-13] MEDS ORDERED: LORazepam 2 MG TAB PO PRN (18:15)
[2021-07-13] MEDS: NS 1,000 ML IV SCH (19:15)
[2021-07-13] MEDS: LEVEMIR (INSULIN DETEMIR) 1 UNITS/0.01ML SC SCH (20:43)
[2021-07-13] MEDS ORDERED: PREGABALIN 100 MG CAP (LYRICA) PO SCH (21:00)
[2021-07-13] MEDS: ATORVASTATIN 20 MG TAB PO SCH (21:00)
[2021-07-13] MEDS ORDERED: LORazepam 2 MG/ML VIAL IV ONE (21:20)
[2021-07-13] MEDS ORDERED: LORazepam 2 MG/ML VIAL IM ONE (22:30)
[2021-07-13] MEDS ORDERED: HALOPERIDOL 5MG/ML VIAL (J1630 PER 1) IM ONE (22:30)
[2021-07-13] MEDS ORDERED: HALOPERIDOL 5MG/ML VIAL (J1630 PER 1) IM STA (22:57)
[2021-07-13] MEDS ORDERED: LORazepam 2 MG/ML VIAL IM STA (22:57)
[2021-07-14] VITALS (7 sets, daily range): BP systolic 99–148; BP diastolic 58–81
[2021-07-14] MEDS: NS 1,000 ML IV SCH ×3 (02:15→18:09)
[2021-07-14] MEDS: HEPARIN SOD (PORCINE) 5000UNITS/ML 1ML VIAL/SYRINGE SC SCH ×2 (06:00→14:18)
[2021-07-14] MEDS: MAGNESIUM OXIDE 400MG TAB (MAG-OX) PO SCH (09:00)
[2021-07-14] MEDS: METOPROLOL TART 50 MG TAB PO SCH ×2 (09:00→20:17)
[2021-07-14] MEDS: OLMESARTAN MEDOXOMIL 20 MG TAB (BENICAR) PO SCH (09:00)
[2021-07-14] MEDS: amLODIPine 5 MG TAB PO SCH (09:00)
[2021-07-14] MEDS: OMEPRAZOLE 20MG CAP PO SCH (09:00)
[2021-07-14] MEDS: MULTIVITAMINS/MINERALS THERAP 1 TAB PO SCH (09:00)
[2021-07-14] MEDS: THIAMINE 100 MG TAB PO SCH (09:00)
[2021-07-14] MEDS: ASPIRIN 81MG ENTERIC TABLET PO SCH (09:00)
[2021-07-14] MEDS ORDERED: LEVEMIR (INSULIN DETEMIR) 1 UNITS/0.01ML SC SCH (09:00)
[2021-07-14] MEDS: FOLIC ACID 1 MG TAB PO SCH (09:00)
[2021-07-14] MEDS: INSULIN LISPRO (NovoLOG) PER UNIT SC SCH ×4 (09:40→20:17)
[2021-07-14 10:23] LABS: ABG BASE EXCESS -1.4 (-2.0-2.0); ABG HCO3 22.9 MEQ/L (22.0-26.0); ABG O2 SATURATION 91.3 % (95.0-99.0); ABG PARTIAL PRESSURE O2 64.5 mmHg (75.0-100.0); ABG STANDARD HCO3 23.2 MEQ/L (22.0-26.0); ABG TOTAL CO2 24.1 MEQ/L (22.0-29.0)
[2021-07-14 15:35] LABS: HEMATOCRIT 34.1 % (42.0-52.0); HEMOGLOBIN 11.3 g/dl (13.5-17.5); MEAN CORPUSCULAR HEMOGLOBIN 30.9 pg (27.0-33.0); MEAN CORPUSCULAR HGB CONC 33.1 g/dl (32.0-36.5); MEAN CORPUSCULAR VOLUME 93.2 fl (80.0-96.0); PLATELET COUNT, AUTOMATED 350 10^3/uL (150-450); RED BLOOD COUNT 3.66 10^6/uL (4.30-6.10); WHITE BLOOD COUNT 6.1 10^3/uL (4.0-10.0)
[2021-07-14] MEDS ORDERED: FOLIC ACID 1 MG in NS 50 ML IV SCH (15:45)
[2021-07-14 15:54] LABS: ALBUMIN 2.9 GM/DL (3.2-5.2); BILIRUBIN,TOTAL 0.4 MG/DL (0.2-1.0); CREATININE FOR GFR 1.37 MG/DL (0.70-1.30); MAGNESIUM LEVEL 1.7 MG/DL (1.8-2.4); TOTAL PROTEIN 6.4 GM/DL (6.4-8.2)
[2021-07-14] MEDS: HALOPERIDOL 5MG/ML VIAL (J1630 PER 1) IV PRN (18:41)
[2021-07-14] MEDS: DEXTROSE 50% 50 ML SYRINGE IV PRN (19:49)
[2021-07-14] MEDS: LORazepam 2 MG/ML VIAL IV PRN (20:06)
[2021-07-14] MEDS: ATORVASTATIN 20 MG TAB PO SCH (20:17)
[2021-07-14] MEDS: LEVEMIR (INSULIN DETEMIR) 1 UNITS/0.01ML SC SCH (20:22)
[2021-07-14] MEDS: NS 0.45% 1,000 ML IV SCH (20:22)
[2021-07-14] MEDS ORDERED: propofoL 200 MG/20 ML VIAL As Ordered ONE (20:51)
[2021-07-14] MEDS ORDERED: MIDAZOLAM INJ 2MG/2ML VIAL (J2250 PER 1MG) As Ordered ONE (20:51)
[2021-07-14] MEDS ORDERED: ONDANSETRON 4MG/2ML VIAL IV ONE (21:05)
[2021-07-14 22:21] LABS: APPEARANCE, CSF CLEAR (CLEAR); COLOR, CSF COLORLESS (COLORLESS); CSF TUBE# CELL CNT TUBE 1
[2021-07-14 22:23] LABS: APPEARANCE, CSF CLEAR (CLEAR); COLOR, CSF COLORLESS (COLORLESS); CSF TUBE# CELL CNT TUBE 4
[2021-07-14 22:35] LABS: CSF TUBE# GLU TUBE 2; CSF TUBE# TP TUBE 2; GLUCOSE CSF 49 MG/DL (40-75); TOTAL PROTEIN,CSF 88 MG/DL (15-45)
[2021-07-15] VITALS (7 sets, daily range): BP systolic 110–168; BP diastolic 60–76
[2021-07-15] MEDS: LORazepam 2 MG/ML VIAL IV PRN ×2 (00:35→14:57)
[2021-07-15] MEDS: NS 0.45% 1,000 ML IV SCH (04:00)
[2021-07-15] MEDS: HALOPERIDOL 5MG/ML VIAL (J1630 PER 1) IV PRN ×2 (06:12→23:16)
[2021-07-15 06:17] LABS: HEMATOCRIT 35.7 % (42.0-52.0); HEMOGLOBIN 11.4 g/dl (13.5-17.5); MEAN CORPUSCULAR HEMOGLOBIN 30.8 pg (27.0-33.0); MEAN CORPUSCULAR HGB CONC 31.9 g/dl (32.0-36.5); MEAN CORPUSCULAR VOLUME 96.5 fl (80.0-96.0); PLATELET COUNT, AUTOMATED 317 10^3/uL (150-450)
[2021-07-15] MEDS: INSULIN LISPRO (NovoLOG) PER UNIT SC SCH ×4 (06:27→21:45)
[2021-07-15 06:42] LABS: ALBUMIN 2.8 GM/DL (3.2-5.2); ALT/SGPT 25 U/L (12-78); BILIRUBIN,TOTAL 0.4 MG/DL (0.2-1.0); BLOOD UREA NITROGEN 19 MG/DL (7-18); CALCIUM LEVEL 8.9 MG/DL (8.5-10.1); CARBON DIOXIDE LEVEL 27 MEQ/L (21-32); CHLORIDE LEVEL 112 MEQ/L (98-107); CREATININE FOR GFR 1.22 MG/DL (0.70-1.30); GLOMERULAR FILTRATION RATE > 60.0 (>56); GLUCOSE, FASTING 179 MG/DL (70-100); POTASSIUM SERUM 4.5 MEQ/L (3.5-5.1); SODIUM LEVEL 145 MEQ/L (136-145); TOTAL PROTEIN 6.1 GM/DL (6.4-8.2)
[2021-07-15] MEDS ORDERED: D5W/0.45% SODIUM CHLORIDE 1,000 ML IV SCH (07:45)
[2021-07-15] MEDS: OLMESARTAN MEDOXOMIL 20 MG TAB (BENICAR) PO SCH (08:14)
[2021-07-15] MEDS: amLODIPine 5 MG TAB PO SCH (08:15)
[2021-07-15] MEDS: ASPIRIN 81MG ENTERIC TABLET PO SCH (08:15)
[2021-07-15] MEDS: METOPROLOL TART 50 MG TAB PO SCH ×2 (08:15→21:49)
[2021-07-15] MEDS: OMEPRAZOLE 20MG CAP PO SCH (08:15)
[2021-07-15] MEDS: MAGNESIUM OXIDE 400MG TAB (MAG-OX) PO SCH (08:15)
[2021-07-15] MEDS ORDERED: MVI -ADULT INJECTION 10ML VIAL IV SCH (09:00)
[2021-07-15] MEDS ORDERED: THIAMINE 200MG 2ML VIAL IV SCH (09:00)
[2021-07-15] MEDS: MULTIVITAMIN -ADULT INJECTION 10 ML, FOLIC ACID 1 MG, THIAMINE INJection 100 MG in NS 1... IV SCH (10:12)
[2021-07-15] MEDS ORDERED: LEVEMIR (INSULIN DETEMIR) 1 UNITS/0.01ML SC SCH (21:00)
[2021-07-15] MEDS: ATORVASTATIN 20 MG TAB PO SCH (21:49)
[2021-07-16] VITALS: BP 126/72
[2021-07-16] MEDS: LORazepam 2 MG/ML VIAL IV PRN ×5 (01:19→14:17)
[2021-07-16 04:00] VITALS: BP 145/73
[2021-07-16] MEDS ORDERED: OLANZapine INTRAMUSCULAR 10MG VIAL IM ONE (04:00)
[2021-07-16] MEDS: HALOPERIDOL 5MG/ML VIAL (J1630 PER 1) IV PRN (05:44)
[2021-07-16] MEDS ORDERED: HALOPERIDOL 5MG/ML VIAL (J1630 PER 1) IM STA (05:50)
[2021-07-16] MEDS ORDERED: LORazepam 2 MG/ML VIAL IM STA (05:50)
[2021-07-16] MEDS: INSULIN LISPRO (NovoLOG) PER UNIT SC SCH ×4 (06:36→20:32)
[2021-07-16] MEDS ORDERED: QUEtiapine FUMARATE 25 MG TAB PO ONE (07:40)
[2021-07-16 07:50] VITALS: BP 164/80
[2021-07-16] MEDS: ASPIRIN 81MG ENTERIC TABLET PO SCH (08:00)
[2021-07-16] MEDS: OLMESARTAN MEDOXOMIL 20 MG TAB (BENICAR) PO SCH (08:00)
[2021-07-16] MEDS: OMEPRAZOLE 20MG CAP PO SCH (08:00)
[2021-07-16] MEDS: MAGNESIUM OXIDE 400MG TAB (MAG-OX) PO SCH (08:00)
[2021-07-16] MEDS: amLODIPine 5 MG TAB PO SCH (08:00)
[2021-07-16] MEDS: MULTIVITAMIN -ADULT INJECTION 10 ML, FOLIC ACID 1 MG, THIAMINE INJection 100 MG in NS 1... IV SCH (08:00)
[2021-07-16] MEDS: METOPROLOL TART 50 MG TAB PO SCH ×2 (08:00→20:46)
[2021-07-16 08:32] LABS: HEMATOCRIT 31.6 % (42.0-52.0); HEMOGLOBIN 10.4 g/dl (13.5-17.5); MEAN CORPUSCULAR HGB CONC 32.9 g/dl (32.0-36.5); PLATELET COUNT, AUTOMATED 290 10^3/uL (150-450); RED BLOOD COUNT 3.36 10^6/uL (4.30-6.10); WHITE BLOOD COUNT 5.1 10^3/uL (4.0-10.0)
[2021-07-16] MEDS ORDERED: LEVEMIR (INSULIN DETEMIR) 1 UNITS/0.01ML SC SCH (09:00)
[2021-07-16 09:09] LABS: ALBUMIN 2.7 GM/DL (3.2-5.2); ALT/SGPT 28 U/L (12-78); BILIRUBIN,TOTAL 0.7 MG/DL (0.2-1.0); BLOOD UREA NITROGEN 10 MG/DL (7-18); CALCIUM LEVEL 9.6 MG/DL (8.5-10.1); CARBON DIOXIDE LEVEL 26 MEQ/L (21-32); CHLORIDE LEVEL 113 MEQ/L (98-107); CREATININE FOR GFR 1.05 MG/DL (0.70-1.30); GLOMERULAR FILTRATION RATE > 60.0 (>56); GLUCOSE, FASTING 80 MG/DL (70-100); POTASSIUM SERUM 3.6 MEQ/L (3.5-5.1); SODIUM LEVEL 144 MEQ/L (136-145); TOTAL PROTEIN 6.3 GM/DL (6.4-8.2)
[2021-07-16 12:09] VITALS: BP 180/88
[2021-07-16] MEDS: hydrALAZINE 20MG/ML 1ML VIAL (J0360 PER 20MG) IV PRN (12:27)
[2021-07-16] MEDS ORDERED: amLODIPine 5 MG TAB PO ONE (12:35)
[2021-07-16 15:55] VITALS: BP 150/72
[2021-07-16] MEDS: DEXTROSE 50% 50 ML SYRINGE IV PRN ×2 (16:54→20:49)
[2021-07-16 20:00] VITALS: BP 149/71
[2021-07-16] MEDS: ATORVASTATIN 20 MG TAB PO SCH (20:42)
[2021-07-17] VITALS (7 sets, daily range): BP systolic 118–191; BP diastolic 62–92
[2021-07-17 05:26] LABS: HEMATOCRIT 34.1 % (42.0-52.0); HEMOGLOBIN 11.2 g/dl (13.5-17.5); MEAN CORPUSCULAR HEMOGLOBIN 31.1 pg (27.0-33.0); MEAN CORPUSCULAR HGB CONC 32.8 g/dl (32.0-36.5); MEAN CORPUSCULAR VOLUME 94.7 fl (80.0-96.0); PLATELET COUNT, AUTOMATED 277 10^3/uL (150-450); WHITE BLOOD COUNT 4.6 10^3/uL (4.0-10.0)
[2021-07-17 05:54] LABS: ALBUMIN 2.8 GM/DL (3.2-5.2); ALT/SGPT 25 U/L (12-78); BILIRUBIN,TOTAL 0.9 MG/DL (0.2-1.0); BLOOD UREA NITROGEN 8 MG/DL (7-18); CALCIUM LEVEL 9.2 MG/DL (8.5-10.1); CARBON DIOXIDE LEVEL 26 MEQ/L (21-32); CHLORIDE LEVEL 113 MEQ/L (98-107); CREATININE FOR GFR 1.02 MG/DL (0.70-1.30); GLOMERULAR FILTRATION RATE > 60.0 (>56); GLUCOSE, FASTING 109 MG/DL (70-100); POTASSIUM SERUM 3.8 MEQ/L (3.5-5.1); SODIUM LEVEL 144 MEQ/L (136-145)
[2021-07-17] MEDS: INSULIN LISPRO (NovoLOG) PER UNIT SC SCH ×4 (07:30→20:46)
[2021-07-17] MEDS ORDERED: LEVEMIR (INSULIN DETEMIR) 1 UNITS/0.01ML SC SCH (09:00)
[2021-07-17] MEDS: ASPIRIN 81MG ENTERIC TABLET PO SCH (09:18)
[2021-07-17] MEDS: OLMESARTAN MEDOXOMIL 20 MG TAB (BENICAR) PO SCH (09:18)
[2021-07-17] MEDS: METOPROLOL TART 50 MG TAB PO SCH ×2 (09:19→20:45)
[2021-07-17] MEDS: MAGNESIUM OXIDE 400MG TAB (MAG-OX) PO SCH (09:19)
[2021-07-17] MEDS: amLODIPine 5 MG TAB PO SCH (09:19)
[2021-07-17] MEDS: OMEPRAZOLE 20MG CAP PO SCH (09:19)
[2021-07-17] MEDS: MULTIVITAMIN -ADULT INJECTION 10 ML, FOLIC ACID 1 MG, THIAMINE INJection 100 MG in NS 1... IV SCH (09:29)
[2021-07-17] MEDS: hydrALAZINE 20MG/ML 1ML VIAL (J0360 PER 20MG) IV PRN (11:40)
[2021-07-17] MEDS ORDERED: OLMESARTAN MEDOXOMIL 20 MG TAB (BENICAR) PO ONE (13:30)
[2021-07-17] MEDS: ATORVASTATIN 20 MG TAB PO SCH (20:44)
[2021-07-17] MEDS: LEVEMIR (INSULIN DETEMIR) 1 UNITS/0.01ML SC SCH (20:46)
[2021-07-18] VITALS: BP 116/59
[2021-07-18 04:00] VITALS: BP 142/74
[2021-07-18] MEDS: HALOPERIDOL 5MG/ML VIAL (J1630 PER 1) IV PRN ×2 (04:36→21:11)
[2021-07-18] MEDS ORDERED: HALOPERIDOL 5MG/ML VIAL (J1630 PER 1) IM STA (05:00)
[2021-07-18 05:37] LABS: HEMATOCRIT 34.9 % (42.0-52.0); HEMOGLOBIN 11.5 g/dl (13.5-17.5); MEAN CORPUSCULAR VOLUME 94.1 fl (80.0-96.0); PLATELET COUNT, AUTOMATED 288 10^3/uL (150-450); RED BLOOD COUNT 3.71 10^6/uL (4.30-6.10); WHITE BLOOD COUNT 5.7 10^3/uL (4.0-10.0)
[2021-07-18 06:02] LABS: ALBUMIN 3.1 GM/DL (3.2-5.2); BILIRUBIN,TOTAL 0.6 MG/DL (0.2-1.0); CALCIUM LEVEL 9.3 MG/DL (8.5-10.1); CREATININE FOR GFR 1.37 MG/DL (0.70-1.30); TOTAL PROTEIN 6.5 GM/DL (6.4-8.2)
[2021-07-18 08:11] VITALS: BP 134/73
[2021-07-18] MEDS ORDERED: OLMESARTAN MEDOXOMIL 20 MG TAB (BENICAR) PO SCH (09:00)
[2021-07-18] MEDS: LEVEMIR (INSULIN DETEMIR) 1 UNITS/0.01ML SC SCH ×2 (09:20→20:47)
[2021-07-18] MEDS: INSULIN LISPRO (NovoLOG) PER UNIT SC SCH ×4 (09:21→20:16)
[2021-07-18] MEDS: OLMESARTAN MEDOXOMIL 20 MG TAB (BENICAR) PO SCH (09:23)
[2021-07-18] MEDS: METOPROLOL TART 50 MG TAB PO SCH ×2 (09:24→20:45)
[2021-07-18] MEDS: ASPIRIN 81MG ENTERIC TABLET PO SCH (09:24)
[2021-07-18] MEDS: amLODIPine 5 MG TAB PO SCH (09:25)
[2021-07-18] MEDS: MAGNESIUM OXIDE 400MG TAB (MAG-OX) PO SCH (09:25)
[2021-07-18] MEDS: OMEPRAZOLE 20MG CAP PO SCH (09:26)
[2021-07-18] MEDS: MULTIVITAMIN -ADULT INJECTION 10 ML, FOLIC ACID 1 MG, THIAMINE INJection 100 MG in NS 1... IV SCH (09:26)
[2021-07-18 12:21] VITALS: BP 134/72
[2021-07-18 20:07] VITALS: BP 134/61
[2021-07-18] MEDS: ATORVASTATIN 20 MG TAB PO SCH (20:45)
[2021-07-18] MEDS ORDERED: NICOTINE 14 MG/24 HR TRANSDERMAL TD PRN (22:15)
[2021-07-19 05:00] VITALS: BP 136/70
[2021-07-19 08:00] VITALS: BP 118/66
[2021-07-19] MEDS ORDERED: THIAMINE 100 MG TAB PO SCH (09:00)
[2021-07-19 09:29] LABS: BASO % 0.7 % (0.0-1.0); EOS # 0.2 10^3/uL (0.0-0.5); EOS % 3.8 % (0.0-3.0); HEMATOCRIT 34.2 % (42.0-52.0); HEMOGLOBIN 11.4 g/dl (13.5-17.5); LYMPH % 16.2 % (24.0-44.0); MEAN CORPUSCULAR HEMOGLOBIN 31.3 pg (27.0-33.0); MEAN CORPUSCULAR HGB CONC 33.3 g/dl (32.0-36.5); MONO # 0.8 10^3/uL (0.0-0.8); MONO % 13.5 % (2.0-8.0); NEUTROPHILS # 3.9 10^3/uL (1.5-8.5); NEUTROPHILS % 65.6 % (36.0-66.0); PLATELET COUNT, AUTOMATED 260 10^3/uL (150-450); RED BLOOD COUNT 3.64 10^6/uL (4.30-6.10)
[2021-07-19 09:51] VITALS: BP 118/66
[2021-07-19] MEDS: LEVEMIR (INSULIN DETEMIR) 1 UNITS/0.01ML SC SCH ×2 (09:51→23:33)
[2021-07-19] MEDS: OLMESARTAN MEDOXOMIL 20 MG TAB (BENICAR) PO SCH (09:51)
[2021-07-19] MEDS: INSULIN LISPRO (NovoLOG) PER UNIT SC SCH ×4 (09:51→20:47)
[2021-07-19] MEDS: MULTIVITAMINS/MINERALS THERAP 1 TAB PO SCH (09:53)
[2021-07-19] MEDS: METOPROLOL TART 50 MG TAB PO SCH ×2 (09:53→20:46)
[2021-07-19] MEDS: FOLIC ACID 1 MG TAB PO SCH (09:54)
[2021-07-19] MEDS: MAGNESIUM OXIDE 400MG TAB (MAG-OX) PO SCH (09:54)
[2021-07-19] MEDS: ASPIRIN 81MG ENTERIC TABLET PO SCH (09:54)
[2021-07-19] MEDS: OMEPRAZOLE 20MG CAP PO SCH (09:54)
[2021-07-19] MEDS: amLODIPine 5 MG TAB PO SCH (09:54)
[2021-07-19 09:59] LABS: ALBUMIN 3.1 GM/DL (3.2-5.2); ALT/SGPT 24 U/L (12-78); BILIRUBIN,TOTAL 0.4 MG/DL (0.2-1.0); BLOOD UREA NITROGEN 17 MG/DL (7-18); CALCIUM LEVEL 9.3 MG/DL (8.5-10.1); CARBON DIOXIDE LEVEL 25 MEQ/L (21-32); CHLORIDE LEVEL 108 MEQ/L (98-107); CREATININE FOR GFR 1.16 MG/DL (0.70-1.30); GLOMERULAR FILTRATION RATE > 60.0 (>56); GLUCOSE, FASTING 259 MG/DL (70-100); MAGNESIUM LEVEL 1.7 MG/DL (1.8-2.4); POTASSIUM SERUM 4.5 MEQ/L (3.5-5.1); SODIUM LEVEL 138 MEQ/L (136-145); TOTAL PROTEIN 6.8 GM/DL (6.4-8.2)
[2021-07-19 16:00] VITALS: BP 148/78
[2021-07-19] MEDS ORDERED: THIAMINE INJection 500 MG in NS 100 ML IV SCH (18:00)
[2021-07-19 20:00] VITALS: BP 142/66
[2021-07-19] MEDS: ATORVASTATIN 20 MG TAB PO SCH (20:46)
[2021-07-20 04:00] VITALS: BP 154/84
[2021-07-20] MEDS: INSULIN LISPRO (NovoLOG) PER UNIT SC SCH ×2 (08:24→12:12)
[2021-07-20] MEDS: ASPIRIN 81MG ENTERIC TABLET PO SCH (08:25)
[2021-07-20] MEDS: MAGNESIUM OXIDE 400MG TAB (MAG-OX) PO SCH (08:25)
[2021-07-20] MEDS: LEVEMIR (INSULIN DETEMIR) 1 UNITS/0.01ML SC SCH (08:25)
[2021-07-20] MEDS: METOPROLOL TART 50 MG TAB PO SCH (08:26)
[2021-07-20] MEDS: FOLIC ACID 1 MG TAB PO SCH (08:26)
[2021-07-20] MEDS: amLODIPine 5 MG TAB PO SCH (08:26)
[2021-07-20] MEDS: MULTIVITAMINS/MINERALS THERAP 1 TAB PO SCH (08:26)
[2021-07-20] MEDS: OMEPRAZOLE 20MG CAP PO SCH (08:26)
[2021-07-20] MEDS: OLMESARTAN MEDOXOMIL 20 MG TAB (BENICAR) PO SCH (08:27)
[2021-07-20 08:30] LABS: BASO % 0.5 % (0.0-1.0); EOS # 0.3 10^3/uL (0.0-0.5); EOS % 5.2 % (0.0-3.0); HEMATOCRIT 33.1 % (42.0-52.0); HEMOGLOBIN 10.9 g/dl (13.5-17.5); LYMPH # 1.1 10^3/uL (1.5-5.0); LYMPH % 18.5 % (24.0-44.0); MEAN CORPUSCULAR HEMOGLOBIN 30.4 pg (27.0-33.0); MEAN CORPUSCULAR HGB CONC 32.9 g/dl (32.0-36.5); MEAN CORPUSCULAR VOLUME 92.2 fl (80.0-96.0); MONO # 0.9 10^3/uL (0.0-0.8); MONO % 15.3 % (2.0-8.0); NEUTROPHILS # 3.5 10^3/uL (1.5-8.5); NEUTROPHILS % 60.3 % (36.0-66.0); PLATELET COUNT, AUTOMATED 222 10^3/uL (150-450); RED BLOOD COUNT 3.59 10^6/uL (4.30-6.10); WHITE BLOOD COUNT 5.7 10^3/uL (4.0-10.0)
[2021-07-20 08:57] LABS: BLOOD UREA NITROGEN 19 MG/DL (7-18); CALCIUM LEVEL 9.2 MG/DL (8.5-10.1); CARBON DIOXIDE LEVEL 26 MEQ/L (21-32); CHLORIDE LEVEL 109 MEQ/L (98-107); CREATININE FOR GFR 1.01 MG/DL (0.70-1.30); GLOMERULAR FILTRATION RATE > 60.0 (>56); GLUCOSE, FASTING 166 MG/DL (70-100); MAGNESIUM LEVEL 1.8 MG/DL (1.8-2.4); POTASSIUM SERUM 4.2 MEQ/L (3.5-5.1); SODIUM LEVEL 141 MEQ/L (136-145)
[2021-07-20] MEDS ORDERED: SERTRALINE 100 MG TAB PO SCH (09:00)
[2021-07-20 09:25] VITALS: BP 127/62
[2021-07-20 12:45] VITALS: BP 116/56
[2021-07-20] MEDS ORDERED: AMLO1TAB24 PO (13:00)
[2021-07-20] MEDS ORDERED: HALO5TAB33 PO (13:00)
[2021-07-20] MEDS ORDERED: BASA100I SC (13:00)
[2021-07-20] MEDS ORDERED: ZOLO100T PO (13:00)
== END 2021-07-20 14:37 | disposition home or self-care (01) | DRG 812 ==
LOC: M ED 21:01 → M ED INP 23:53 → M PCU 07-13 03:10
PROVIDERS: ADMIT Family Medicine; ATTEND Family Medicine
PROC: B246ZZZ Ultrasonography of Right and Left Heart (ICD-10-PCS; principal; 2021-07-12)
DX: T42.6X1A Poisoning by other antiepileptic and sedative-hypnotic drugs, accidental (unintentional), initial encounter (principal); G92.8 Other toxic encephalopathy; E11.22 Type 2 diabetes mellitus with diabetic chronic kidney disease; I13.0 Hypertensive heart and chronic kidney disease with heart failure and stage 1 through stage 4 chronic kidney disease, or unspecified chronic kidney disease; I50.9 Heart failure, unspecified; E11.39 Type 2 diabetes mellitus with other diabetic ophthalmic complication; N18.30 Chronic kidney disease, stage 3 unspecified; J44.9 Chronic obstructive pulmonary disease, unspecified; E78.5 Hyperlipidemia, unspecified; M06.9 Rheumatoid arthritis, unspecified; F32.A Depression, unspecified; F41.9 Anxiety disorder, unspecified; H40.9 Unspecified glaucoma; F10.10 Alcohol abuse, uncomplicated; K21.9 Gastro-esophageal reflux disease without esophagitis; M54.9 Dorsalgia, unspecified; I25.10 Atherosclerotic heart disease of native coronary artery without angina pectoris; Z79.82 Long term (current) use of aspirin; Z79.4 Long term (current) use of insulin; Z79.899 Other long term (current) drug therapy; Z88.8 Allergy status to other drugs, medicaments and biological substances; Z20.822 Contact with and (suspected) exposure to COVID-19; S00.93XA Contusion of unspecified part of head, initial encounter; W01.0XXA Fall on same level from slipping, tripping and stumbling without subsequent striking against object, initial encounter; Y92.009 Unspecified place in unspecified non-institutional (private) residence as the place of occurrence of the external cause; R45.1 Restlessness and agitation; T45.0X5A Adverse effect of antiallergic and antiemetic drugs, initial encounter

== ENCOUNTER 2021-08-11 14:43 | Emergency (ER) | payer OTHER ==
[~2021-08-11] VITALS: Ht 170.2 cm; Wt 90.0 kg
[2021-08-11 14:43] VITALS: BP 159/84
== END 2021-08-11 17:00 | disposition home or self-care (01) ==
LOC: M ED 14:43
DX: S92.352A Displaced fracture of fifth metatarsal bone, left foot, initial encounter for closed fracture (principal); S92.342A Displaced fracture of fourth metatarsal bone, left foot, initial encounter for closed fracture; W19.XXXA Unspecified fall, initial encounter; Y92.099 Unspecified place in other non-institutional residence as the place of occurrence of the external cause; E10.9 Type 1 diabetes mellitus without complications; I10 Essential (primary) hypertension; J44.9 Chronic obstructive pulmonary disease, unspecified; K21.9 Gastro-esophageal reflux disease without esophagitis; F41.9 Anxiety disorder, unspecified; F32.9 Major depressive disorder, single episode, unspecified; M06.9 Rheumatoid arthritis, unspecified; F17.200 Nicotine dependence, unspecified, uncomplicated; Z79.82 Long term (current) use of aspirin; Z79.4 Long term (current) use of insulin; Z79.899 Other long term (current) drug therapy; Z88.8 Allergy status to other drugs, medicaments and biological substances

== ENCOUNTER → 2021-08-11 | Outpatient (CLI) | payer OTHER ==
[~2021-08-11] MED LIST changes: +ASPI-161 PO; +BENI5TAB3 PO; +BUPR75TA5 PO; +GLUC1KIT IM; +HALO5TAB33 PO; +MAGN400T2 PO; +NICOINH INH; +OMEP40CA5 PO; +PATIENT COMMENT
[2021-08-11 15:42] LABS: BASO # 0.1 10^3/uL (0.0-0.2); BASO % 1.1 % (0.0-1.0); EOS # 0.2 10^3/uL (0.0-0.5); EOS % 4.4 % (0.0-3.0); HEMATOCRIT 37.4 % (42.0-52.0); HEMOGLOBIN 12.2 g/dl (13.5-17.5); LYMPH # 1.2 10^3/uL (1.5-5.0); LYMPH % 24.7 % (24.0-44.0); MEAN CORPUSCULAR HEMOGLOBIN 31.5 pg (27.0-33.0); MEAN CORPUSCULAR HGB CONC 32.6 g/dl (32.0-36.5); MEAN CORPUSCULAR VOLUME 96.6 fl (80.0-96.0); MONO # 0.7 10^3/uL (0.0-0.8); MONO % 14.6 % (2.0-8.0); NEUTROPHILS # 2.6 10^3/uL (1.5-8.5); PLATELET COUNT, AUTOMATED 306 10^3/uL (150-450); RED BLOOD COUNT 3.87 10^6/uL (4.30-6.10); WHITE BLOOD COUNT 4.7 10^3/uL (4.0-10.0)
[2021-08-11 16:09] LABS: ALBUMIN 3.2 GM/DL (3.2-5.2); ALT/SGPT 22 U/L (12-78); BILIRUBIN,TOTAL 0.6 MG/DL (0.2-1.0); BLOOD UREA NITROGEN 17 MG/DL (7-18); CALCIUM LEVEL 8.9 MG/DL (8.5-10.1); CARBON DIOXIDE LEVEL 29 MEQ/L (21-32); CHLORIDE LEVEL 110 MEQ/L (98-107); CREATININE FOR GFR 1.05 MG/DL (0.70-1.30); GLOMERULAR FILTRATION RATE > 60.0 (>56); GLUCOSE, FASTING 138 MG/DL (70-100); POTASSIUM SERUM 4.2 MEQ/L (3.5-5.1); SODIUM LEVEL 142 MEQ/L (136-145); TOTAL PROTEIN 7.2 GM/DL (6.4-8.2)
[2021-08-11 18:08] LABS: ERYTHROCYTE SEDIMENTATION RATE 17 mm/hr (0-20)
== END ==
LOC: M RAD 13:39
PROVIDERS: ATTEND Internal Medicine Rheumatology
DX: M05.79 Rheumatoid arthritis with rheumatoid factor of multiple sites without organ or systems involvement (principal)

== ENCOUNTER → 2021-08-24 | Outpatient (REF) | payer OTHER ==
[2021-08-24 17:28] LABS: PERCENT SATURATION 23.7 % (19.7-50.0)
== END ==
LOC: M LAB REF 16:39
PROVIDERS: ATTEND Nurse Practitioner Family
DX: D50.0 Iron deficiency anemia secondary to blood loss (chronic) (principal)

== ENCOUNTER → 2021-08-29 | Outpatient (CLI) | payer OTHER | LOC: M SOG 09:28 | PROVIDERS: ATTEND Orthopaedic Surgery Hand Surgery | DX: M79.672 Pain in left foot (principal) ==

== ENCOUNTER → 2021-09-14 | Outpatient (REF) | payer OTHER ==
[2021-09-14 18:30] LABS: MAU/CREAT RATIO 363.4 MCG/MG (0.0-30.0)
== END ==
LOC: M LAB REF 16:51
PROVIDERS: ATTEND Nurse Practitioner Family
DX: E10.649 Type 1 diabetes mellitus with hypoglycemia without coma (principal)

== ENCOUNTER → 2021-09-27 | Outpatient (CLI) | payer OTHER | LOC: M SOG 15:01 | PROVIDERS: ATTEND Orthopaedic Surgery Hand Surgery | DX: S92.352D Displaced fracture of fifth metatarsal bone, left foot, subsequent encounter for fracture with routine healing (principal); S92.342D Displaced fracture of fourth metatarsal bone, left foot, subsequent encounter for fracture with routine healing ==

== ENCOUNTER → 2021-10-09 | Outpatient (CLI) | payer OTHER ==
[2021-10-09 12:03] LABS: BASO % 0.8 % (0.0-1.0); EOS # 0.2 10^3/uL (0.0-0.5); EOS % 4.2 % (0.0-3.0); HEMOGLOBIN 13.8 g/dl (13.5-17.5); LYMPH # 1.4 10^3/uL (1.5-5.0); LYMPH % 26.8 % (24.0-44.0); MEAN CORPUSCULAR HEMOGLOBIN 31.2 pg (27.0-33.0); MEAN CORPUSCULAR HGB CONC 32.9 g/dl (32.0-36.5); MONO # 0.9 10^3/uL (0.0-0.8); MONO % 17.7 % (2.0-8.0); NEUTROPHILS # 2.5 10^3/uL (1.5-8.5); NEUTROPHILS % 50.3 % (36.0-66.0); PLATELET COUNT, AUTOMATED 213 10^3/uL (150-450); RED BLOOD COUNT 4.42 10^6/uL (4.30-6.10)
[2021-10-09 12:54] LABS: ALBUMIN 3.4 GM/DL (3.2-5.2); ALT/SGPT 22 U/L (12-78); BILIRUBIN,TOTAL 0.4 MG/DL (0.2-1.0); BLOOD UREA NITROGEN 27 MG/DL (7-18); C REACTIVE PROTEIN QUANTITATIV 0.97 MG/DL (0.00-0.30); CALCIUM LEVEL 9.1 MG/DL (8.5-10.1); CARBON DIOXIDE LEVEL 25 MEQ/L (21-32); CHLORIDE LEVEL 112 MEQ/L (98-107); CREATININE FOR GFR 1.26 MG/DL (0.70-1.30); GLOMERULAR FILTRATION RATE > 60.0 (>56); GLUCOSE, FASTING 119 MG/DL (70-100); POTASSIUM SERUM 4.3 MEQ/L (3.5-5.1); SODIUM LEVEL 141 MEQ/L (136-145); TOTAL PROTEIN 6.8 GM/DL (6.4-8.2)
[2021-10-09 13:21] LABS: ERYTHROCYTE SEDIMENTATION RATE 18 mm/hr (0-20)
== END ==
LOC: M LAB 11:30
PROVIDERS: ATTEND Internal Medicine Rheumatology
DX: M05.79 Rheumatoid arthritis with rheumatoid factor of multiple sites without organ or systems involvement (principal); D72.819 Decreased white blood cell count, unspecified; N18.2 Chronic kidney disease, stage 2 (mild); Z79.899 Other long term (current) drug therapy; Z72.0 Tobacco use

== ENCOUNTER → 2021-10-31 | Outpatient (CLI) | payer OTHER | LOC: M SOG 08:08 | PROVIDERS: ATTEND Physician Assistant | DX: S92.342A Displaced fracture of fourth metatarsal bone, left foot, initial encounter for closed fracture (principal); S92.352A Displaced fracture of fifth metatarsal bone, left foot, initial encounter for closed fracture; W18.30XA Fall on same level, unspecified, initial encounter; Y92.009 Unspecified place in unspecified non-institutional (private) residence as the place of occurrence of the external cause ==

== ENCOUNTER → 2022-02-23 | Outpatient (CLI) | payer OTHER ==
[~2022-02-23] MED LIST changes: -BENI5TAB3 PO; +OLME5TAB27 PO
[2022-02-23 12:23] LABS: BASO # 0.1 10^3/uL (0.0-0.2); BASO % 0.9 % (0.0-1.0); EOS # 0.2 10^3/uL (0.0-0.5); EOS % 3.3 % (0.0-3.0); HEMOGLOBIN 13.6 g/dl (13.5-17.5); LYMPH # 1.4 10^3/uL (1.5-5.0); LYMPH % 25.1 % (24.0-44.0); MEAN CORPUSCULAR HEMOGLOBIN 32.1 pg (27.0-33.0); MEAN CORPUSCULAR HGB CONC 33.2 g/dl (32.0-36.5); MEAN CORPUSCULAR VOLUME 96.7 fl (80.0-96.0); MONO # 0.7 10^3/uL (0.0-0.8); MONO % 13.2 % (2.0-8.0); NEUTROPHILS # 3.2 10^3/uL (1.5-8.5); NEUTROPHILS % 57.3 % (36.0-66.0); PLATELET COUNT, AUTOMATED 208 10^3/uL (150-450); RED BLOOD COUNT 4.24 10^6/uL (4.30-6.10); WHITE BLOOD COUNT 5.5 10^3/uL (4.0-10.0)
[2022-02-23 12:45] LABS: C REACTIVE PROTEIN QUANTITATIV < 0.40 MG/DL (<1.0)
[2022-02-23 12:47] LABS: ALBUMIN 3.5 G/DL (3.2-5.2); ALKALINE PHOSPHATASE 91 U/L (46-116); ALT/SGPT 19 U/L (7.0-40); AST/SGOT 23 U/L (<34); BILIRUBIN,TOTAL 0.6 MG/DL (0.3-1.2); BLOOD UREA NITROGEN 21 MG/DL (9-23); CALCIUM LEVEL 9.3 MG/DL (8.5-10.1); CARBON DIOXIDE LEVEL 28 MMOL/L (20-31); CHLORIDE LEVEL 110 MMOL/L (98-107); CREATININE FOR GFR 1.54 MG/DL (0.70-1.30); GLOMERULAR FILTRATION RATE 49.6 (>56); GLUCOSE, FASTING 137 MG/DL (60-100); POTASSIUM SERUM 4.1 MMOL/L (3.5-5.1); SODIUM LEVEL 142 MMOL/L (136-145); TOTAL PROTEIN 6.5 G/DL (5.7-8.2)
[2022-02-23 13:03] LABS: ERYTHROCYTE SEDIMENTATION RATE 17 mm/hr (0-20)
== END ==
LOC: M LAB 11:48
PROVIDERS: ATTEND Internal Medicine Rheumatology
DX: M05.79 Rheumatoid arthritis with rheumatoid factor of multiple sites without organ or systems involvement (principal); D72.819 Decreased white blood cell count, unspecified; N18.2 Chronic kidney disease, stage 2 (mild); Z72.0 Tobacco use

== ENCOUNTER → 2022-03-09 | Outpatient (CLI) | payer OTHER | LOC: M WUC 14:40 | PROVIDERS: ATTEND Physician Assistant | DX: S50.01XA Contusion of right elbow, initial encounter (principal) ==

== ENCOUNTER → 2022-05-11 | Outpatient (CLI) | payer OTHER | LOC: M LABSMTC 09:26 | PROVIDERS: ATTEND Anesthesiology | DX: Z01.812 Encounter for preprocedural laboratory examination (principal); Z20.822 Contact with and (suspected) exposure to COVID-19 ==

== ENCOUNTER → 2022-05-16 | Day surgery (SDC) | payer OTHER ==
[~2022-05-16] VITALS: Ht 170.2 cm; Wt 92.4 kg
[~2022-05-16] MED LIST changes: +BSS IRRIG/VANCO(10MG)/TOBRA(5MG)/EPINEPH(1:1000-0.5CC)500ML BAG-ORONLY IR ONE; +CEFUROXIME 1MG/0.1ML INTRACAMERAL INJ As Ordered ONE; +CYCLOPENTOLATE 1% OPHTH SOLN 2ML BTL OD SCH; +LIDOCAINE 1% SDV 5ML VIAL As Ordered ONE; +LIDOCAINE 3.5 % 1ML OPHTH TOPICAL GEL OU ONE; +MIDAZOLAM INJ 2MG/2ML VIAL As Ordered ONE; +OFLOXACIN 0.3 % (OCUFLOX) OPTH SOL 5ML OD ONE; +PHENYLEPHRINE 10% OPHTH SOL 5ML OD PRN; +PHENYLEPHRINE 2.5% OPHTH SOL 2ML OD SCH; +PREG200C PO; +RAME8TAB2 PO; +TROPICAMIDE 1% OPHTH SOLN 15ML OD SCH; +fentaNYL 100 MCG/2 ML INJECTION As Ordered ONE
[2022-05-16 12:50] VITALS: BP 139/69
== END | disposition home or self-care (01) ==
LOC: M SDC 11:17
PROVIDERS: ATTEND Ophthalmology
DX: H25.11 Age-related nuclear cataract, right eye (principal); I12.9 Hypertensive chronic kidney disease with stage 1 through stage 4 chronic kidney disease, or unspecified chronic kidney disease; E11.42 Type 2 diabetes mellitus with diabetic polyneuropathy; E78.00 Pure hypercholesterolemia, unspecified; M06.9 Rheumatoid arthritis, unspecified; F41.9 Anxiety disorder, unspecified; F32.A Depression, unspecified; J44.9 Chronic obstructive pulmonary disease, unspecified; N18.2 Chronic kidney disease, stage 2 (mild); E11.22 Type 2 diabetes mellitus with diabetic chronic kidney disease; F17.210 Nicotine dependence, cigarettes, uncomplicated; Z88.8 Allergy status to other drugs, medicaments and biological substances; Z79.899 Other long term (current) drug therapy; Z79.51 Long term (current) use of inhaled steroids; Z79.82 Long term (current) use of aspirin; Z79.4 Long term (current) use of insulin
CPT/HCPCS: 66984; J0697; J2250; J3010; V2632

== ENCOUNTER → 2022-05-24 | Outpatient (CLI) | payer OTHER ==
[~2022-05-24] MED LIST changes: -BSS IRRIG/VANCO(10MG)/TOBRA(5MG)/EPINEPH(1:1000-0.5CC)500ML BAG-ORONLY IR ONE; -CEFUROXIME 1MG/0.1ML INTRACAMERAL INJ As Ordered ONE; -CYCLOPENTOLATE 1% OPHTH SOLN 2ML BTL OD SCH; -LIDOCAINE 1% SDV 5ML VIAL As Ordered ONE; -LIDOCAINE 3.5 % 1ML OPHTH TOPICAL GEL OU ONE; -MIDAZOLAM INJ 2MG/2ML VIAL As Ordered ONE; -OFLOXACIN 0.3 % (OCUFLOX) OPTH SOL 5ML OD ONE; -PHENYLEPHRINE 10% OPHTH SOL 5ML OD PRN; -PHENYLEPHRINE 2.5% OPHTH SOL 2ML OD SCH; -TROPICAMIDE 1% OPHTH SOLN 15ML OD SCH; -fentaNYL 100 MCG/2 ML INJECTION As Ordered ONE
== END ==
LOC: M SLEEP HO 09:02
PROVIDERS: ATTEND Internal Medicine Pulmonary Disease
DX: R06.83 Snoring (principal); G47.33 Obstructive sleep apnea (adult) (pediatric)

== ENCOUNTER → 2022-06-14 | Outpatient (CLI) | payer OTHER ==
[~2022-06-14] MED LIST changes: +PRED20TA PO
[2022-06-14 12:04] LABS: BASO % 0.7 % (0.0-1.0); EOS # 0.2 10^3/uL (0.0-0.5); EOS % 4.4 % (0.0-3.0); HEMATOCRIT 43.5 % (42.0-52.0); HEMOGLOBIN 14.3 g/dl (13.5-17.5); LYMPH # 0.9 10^3/uL (1.5-5.0); LYMPH % 21.8 % (24.0-44.0); MEAN CORPUSCULAR HEMOGLOBIN 31.9 pg (27.0-33.0); MEAN CORPUSCULAR HGB CONC 32.9 g/dl (32.0-36.5); MEAN CORPUSCULAR VOLUME 97.1 fl (80.0-96.0); MONO # 0.6 10^3/uL (0.0-0.8); NEUTROPHILS # 2.4 10^3/uL (1.5-8.5); NEUTROPHILS % 57.9 % (36.0-66.0); PLATELET COUNT, AUTOMATED 174 10^3/uL (150-450); RED BLOOD COUNT 4.48 10^6/uL (4.30-6.10); WHITE BLOOD COUNT 4.1 10^3/uL (4.0-10.0)
[2022-06-14 12:35] LABS: C REACTIVE PROTEIN QUANTITATIV < 0.40 MG/DL (<1.0)
[2022-06-14 12:37] LABS: ALBUMIN 3.4 G/DL (3.2-5.2); ALKALINE PHOSPHATASE 95 U/L (46-116); ALT/SGPT 17 U/L (7.0-40); AST/SGOT 29 U/L (<34); BILIRUBIN,TOTAL 0.8 MG/DL (0.3-1.2); BLOOD UREA NITROGEN 22 MG/DL (9-23); CALCIUM LEVEL 8.7 MG/DL (8.5-10.1); CARBON DIOXIDE LEVEL 29 MMOL/L (20-31); CHLORIDE LEVEL 106 MMOL/L (98-107); CREATININE FOR GFR 1.36 MG/DL (0.70-1.30); GLOMERULAR FILTRATION RATE 57.3 (>56); GLUCOSE, FASTING 221 MG/DL (60-100); POTASSIUM SERUM 4.2 MMOL/L (3.5-5.1); SODIUM LEVEL 141 MMOL/L (136-145); TOTAL PROTEIN 6.3 G/DL (5.7-8.2)
[2022-06-14 12:58] LABS: ERYTHROCYTE SEDIMENTATION RATE 19 mm/hr (0-20)
== END ==
LOC: M LAB 11:20
PROVIDERS: ATTEND Internal Medicine Rheumatology
DX: M05.79 Rheumatoid arthritis with rheumatoid factor of multiple sites without organ or systems involvement (principal); D72.819 Decreased white blood cell count, unspecified; N18.2 Chronic kidney disease, stage 2 (mild); Z79.899 Other long term (current) drug therapy; Z72.0 Tobacco use

== ENCOUNTER 2022-06-18 09:53 | Emergency (ER) | payer OTHER ==
[~2022-06-18] VITALS: Ht 170.2 cm; Wt 94.4 kg
[~2022-06-18 09:53] MED LIST changes: -PRED20TA PO
[2022-06-18] MEDS ORDERED: PRED20TA PO (12:10)
[2022-06-18 12:18] VITALS: BP 127/77
== END 2022-06-18 12:21 | disposition home or self-care (01) ==
LOC: M ED 09:53
DX: M70.21 Olecranon bursitis, right elbow (principal); E10.9 Type 1 diabetes mellitus without complications; I10 Essential (primary) hypertension; J44.9 Chronic obstructive pulmonary disease, unspecified; K21.9 Gastro-esophageal reflux disease without esophagitis; F32.9 Major depressive disorder, single episode, unspecified; F41.9 Anxiety disorder, unspecified; F17.210 Nicotine dependence, cigarettes, uncomplicated; Z88.8 Allergy status to other drugs, medicaments and biological substances; Z79.82 Long term (current) use of aspirin; Z79.899 Other long term (current) drug therapy; Z79.4 Long term (current) use of insulin

== ENCOUNTER → 2022-07-06 | Outpatient (CLI) | payer OTHER ==
[~2022-07-06] MED LIST changes: +PRED20TA PO
== END ==
LOC: M WHC 10:41
PROVIDERS: ATTEND Nurse Practitioner Family
DX: R39.11 Hesitancy of micturition (principal); R33.9 Retention of urine, unspecified; N18.2 Chronic kidney disease, stage 2 (mild)

== ENCOUNTER 2022-09-21 08:45 | Emergency (ER) | payer OTHER ==
[~2022-09-21] VITALS: Ht 170.2 cm; Wt 95.0 kg
[2022-09-21 08:45] VITALS: BP 117/64; TEMP 97.2; O2SAT 98
[~2022-09-21 08:45] MED LIST changes: -LOSA100T45 PO; +LOSA100T46 PO
[2022-09-21] MEDS: KETOROLAC 60MG 2ML VIAL IM ONE ×2 (11:35→11:44)
[2022-09-21] MEDS ORDERED: ACETAMINOPHEN 500 MG TAB PO ONE (11:55)
== END 2022-09-21 12:27 | disposition left against medical advice (07) ==
LOC: M ED 08:45
DX: S49.92XA Unspecified injury of left shoulder and upper arm, initial encounter (principal); W01.0XXA Fall on same level from slipping, tripping and stumbling without subsequent striking against object, initial encounter; Y92.89 Other specified places as the place of occurrence of the external cause; Y93.89 Activity, other specified; Y99.8 Other external cause status; E11.9 Type 2 diabetes mellitus without complications; E78.5 Hyperlipidemia, unspecified; K21.9 Gastro-esophageal reflux disease without esophagitis; J44.9 Chronic obstructive pulmonary disease, unspecified; R56.9 Unspecified convulsions; F41.9 Anxiety disorder, unspecified; F32.A Depression, unspecified; F17.200 Nicotine dependence, unspecified, uncomplicated; Z88.8 Allergy status to other drugs, medicaments and biological substances; Z79.82 Long term (current) use of aspirin; Z79.4 Long term (current) use of insulin; Z79.899 Other long term (current) drug therapy

== ENCOUNTER → 2022-09-22 | Outpatient (CLI) | payer OTHER ==
[2022-09-22 08:59] LABS: BASO % 0.7 % (0.0-1.0); EOS # 0.2 10^3/uL (0.0-0.5); HEMATOCRIT 38.3 % (42.0-52.0); HEMOGLOBIN 12.4 g/dl (13.5-17.5); LYMPH # 1.5 10^3/uL (1.5-5.0); LYMPH % 31.7 % (24.0-44.0); MEAN CORPUSCULAR HEMOGLOBIN 32.8 pg (27.0-33.0); MEAN CORPUSCULAR HGB CONC 32.4 g/dl (32.0-36.5); MEAN CORPUSCULAR VOLUME 101.3 fl (80.0-96.0); MONO # 0.7 10^3/uL (0.0-0.8); MONO % 15.3 % (2.0-8.0); NEUTROPHILS # 2.2 10^3/uL (1.5-8.5); NEUTROPHILS % 47.1 % (36.0-66.0); PLATELET COUNT, AUTOMATED 156 10^3/uL (150-450); RED BLOOD COUNT 3.78 10^6/uL (4.30-6.10); WHITE BLOOD COUNT 4.6 10^3/uL (4.0-10.0)
[2022-09-22 09:12] LABS: ERYTHROCYTE SEDIMENTATION RATE 27 mm/hr (0-20)
[2022-09-22 09:30] LABS: ALBUMIN 2.9 G/DL (3.2-5.2); ALKALINE PHOSPHATASE 110 U/L (46-116); ALT/SGPT 20 U/L (7.0-40); AST/SGOT 23 U/L (<34); BILIRUBIN,TOTAL 0.5 MG/DL (0.3-1.2); BLOOD UREA NITROGEN 27 MG/DL (9-23); CALCIUM LEVEL 8.1 MG/DL (8.5-10.1); CARBON DIOXIDE LEVEL 27 MMOL/L (20-31); CHLORIDE LEVEL 108 MMOL/L (98-107); GLOMERULAR FILTRATION RATE > 60.0 (>56); GLUCOSE, FASTING 244 MG/DL (60-100); POTASSIUM SERUM 4.8 MMOL/L (3.5-5.1); SODIUM LEVEL 140 MMOL/L (136-145); TOTAL PROTEIN 5.6 G/DL (5.7-8.2)
== END ==
LOC: M LAB 08:35
PROVIDERS: ATTEND Internal Medicine Rheumatology
DX: M05.79 Rheumatoid arthritis with rheumatoid factor of multiple sites without organ or systems involvement (principal)

== ENCOUNTER → 2022-09-25 | Outpatient (REF) | payer OTHER | LOC: M SFHCRHEU 10:17 | PROVIDERS: ATTEND Internal Medicine Rheumatology | DX: Z53.9 Procedure and treatment not carried out, unspecified reason (principal) ==

== ENCOUNTER → 2022-10-24 | Outpatient (CLI) | payer OTHER ==
[2022-10-24 10:01] LABS: BASO # 0.1 10^3/uL (0.0-0.2); BASO % 1.5 % (0.0-1.0); EOS # 0.2 10^3/uL (0.0-0.5); EOS % 4.6 % (0.0-3.0); HEMATOCRIT 43.8 % (42.0-52.0); LYMPH # 1.6 10^3/uL (1.5-5.0); LYMPH % 38.9 % (24.0-44.0); MEAN CORPUSCULAR HEMOGLOBIN 33.1 pg (27.0-33.0); MEAN CORPUSCULAR HGB CONC 34.2 g/dl (32.0-36.5); MEAN CORPUSCULAR VOLUME 96.7 fl (80.0-96.0); MONO # 0.5 10^3/uL (0.0-0.8); MONO % 11.2 % (2.0-8.0); NEUTROPHILS # 1.8 10^3/uL (1.5-8.5); NEUTROPHILS % 43.6 % (36.0-66.0); PLATELET COUNT, AUTOMATED 234 10^3/uL (150-450); RED BLOOD COUNT 4.53 10^6/uL (4.30-6.10); WHITE BLOOD COUNT 4.1 10^3/uL (4.0-10.0)
[2022-10-24 10:20] LABS: ERYTHROCYTE SEDIMENTATION RATE 18 mm/hr (0-20)
[2022-10-24 10:27] LABS: C REACTIVE PROTEIN QUANTITATIV < 0.40 MG/DL (<1.0)
[2022-10-24 10:42] LABS: ALBUMIN 3.4 G/DL (3.2-5.2); ALKALINE PHOSPHATASE 110 U/L (46-116); ALT/SGPT 59 U/L (7.0-40); AST/SGOT 57 U/L (<34); BILIRUBIN,TOTAL 0.7 MG/DL (0.3-1.2); BLOOD UREA NITROGEN 19 MG/DL (9-23); CALCIUM LEVEL 9.4 MG/DL (8.5-10.1); CARBON DIOXIDE LEVEL 30 MMOL/L (20-31); CHLORIDE LEVEL 100 MMOL/L (98-107); CREATININE FOR GFR 1.48 MG/DL (0.70-1.30); GLOMERULAR FILTRATION RATE 51.8 (>56); GLUCOSE, FASTING 182 MG/DL (60-100); POTASSIUM SERUM 3.9 MMOL/L (3.5-5.1); SODIUM LEVEL 138 MMOL/L (136-145); TOTAL PROTEIN 6.3 G/DL (5.7-8.2)
== END ==
LOC: M LAB 09:41
PROVIDERS: ATTEND Internal Medicine Rheumatology
DX: Z72.0 Tobacco use (principal)

== ENCOUNTER → 2022-10-31 | Outpatient (CLI) | payer OTHER | LOC: M RAD 08:00 | PROVIDERS: ATTEND Family Medicine Addiction Medicine | DX: M89.9 Disorder of bone, unspecified (principal) | CPT/HCPCS: 78306; A9503 ==

== ENCOUNTER → 2023-01-15 | Outpatient (CLI) | payer OTHER ==
[~2023-01-15] MED LIST changes: -PREG200C PO; +PREG200C2 PO; -PREG300C PO; +PREG300C2 PO
[2023-01-15 13:19] LABS: BASO % 0.7 % (0.0-1.0); EOS # 0.2 10^3/uL (0.0-0.5); EOS % 3.3 % (0.0-3.0); HEMATOCRIT 46.3 % (42.0-52.0); HEMOGLOBIN 15.6 g/dl (13.5-17.5); LYMPH # 1.2 10^3/uL (1.5-5.0); LYMPH % 26.3 % (24.0-44.0); MEAN CORPUSCULAR HEMOGLOBIN 33.3 pg (27.0-33.0); MEAN CORPUSCULAR HGB CONC 33.7 g/dl (32.0-36.5); MEAN CORPUSCULAR VOLUME 98.7 fl (80.0-96.0); MONO # 0.6 10^3/uL (0.0-0.8); MONO % 13.7 % (2.0-8.0); NEUTROPHILS # 2.6 10^3/uL (1.5-8.5); NEUTROPHILS % 55.8 % (36.0-66.0); PLATELET COUNT, AUTOMATED 225 10^3/uL (150-450); RED BLOOD COUNT 4.69 10^6/uL (4.30-6.10); WHITE BLOOD COUNT 4.6 10^3/uL (4.0-10.0)
[2023-01-15 13:32] LABS: C REACTIVE PROTEIN QUANTITATIV < 0.40 MG/DL (<1.0)
[2023-01-15 13:34] LABS: ALBUMIN 3.4 G/DL (3.2-5.2); ALKALINE PHOSPHATASE 97 U/L (46-116); ALT/SGPT 24 U/L (7.0-40); AST/SGOT 32 U/L (<34); BLOOD UREA NITROGEN 20 MG/DL (9-23); CALCIUM LEVEL 9.2 MG/DL (8.5-10.1); CARBON DIOXIDE LEVEL 30 MMOL/L (20-31); CHLORIDE LEVEL 107 MMOL/L (98-107); GLOMERULAR FILTRATION RATE > 60.0 (>56); GLUCOSE, FASTING 75 MG/DL (60-100); POTASSIUM SERUM 4.1 MMOL/L (3.5-5.1); SODIUM LEVEL 144 MMOL/L (136-145); TOTAL PROTEIN 6.7 G/DL (5.7-8.2)
[2023-01-15 13:49] LABS: ERYTHROCYTE SEDIMENTATION RATE 26 mm/hr (0-20)
== END ==
LOC: M LAB 11:59
PROVIDERS: ATTEND Internal Medicine Rheumatology
DX: N18.2 Chronic kidney disease, stage 2 (mild) (principal)

== ENCOUNTER → 2023-08-16 | Outpatient (REF) | payer OTHER ==
[~2023-08-16] MED LIST changes: -ASPI-161 PO; +ASPI-615 PO; -LEFL1TAB4; -LEFL1TAB4 PO; +LEFL20TA15; +LEFL20TA15 PO
[2023-08-16 13:41] LABS: BASO % 0.9 % (0.0-1.0); EOS # 0.3 10^3/uL (0.0-0.5); EOS % 5.6 % (0.0-3.0); HEMOGLOBIN 13.3 g/dl (13.5-17.5); LYMPH % 22.3 % (24.0-44.0); MEAN CORPUSCULAR HEMOGLOBIN 33.4 pg (27.0-33.0); MEAN CORPUSCULAR HGB CONC 33.3 g/dl (32.0-36.5); MEAN CORPUSCULAR VOLUME 100.5 fl (80.0-96.0); MONO # 0.5 10^3/uL (0.0-0.8); MONO % 10.5 % (2.0-8.0); NEUTROPHILS # 2.7 10^3/uL (1.5-8.5); NEUTROPHILS % 60.5 % (36.0-66.0); PLATELET COUNT, AUTOMATED 218 10^3/uL (150-450); RED BLOOD COUNT 3.98 10^6/uL (4.30-6.10); WHITE BLOOD COUNT 4.5 10^3/uL (4.0-10.0)
[2023-08-16 14:08] LABS: C REACTIVE PROTEIN QUANTITATIV < 0.40 MG/DL (<1.0)
[2023-08-16 14:09] LABS: ALBUMIN 3.1 G/DL (3.2-5.2); ALKALINE PHOSPHATASE 126 U/L (46-116); ALT/SGPT 22 U/L (7.0-40); AST/SGOT 24 U/L (<34); BILIRUBIN,TOTAL 0.5 MG/DL (0.3-1.2); BLOOD UREA NITROGEN 23 MG/DL (9-23); CARBON DIOXIDE LEVEL 28 MMOL/L (20-31); CHLORIDE LEVEL 106 MMOL/L (98-107); CREATININE FOR GFR 1.41 MG/DL (0.70-1.30); GLOMERULAR FILTRATION RATE 54.8 (>56); GLUCOSE, FASTING 242 MG/DL (60-100); POTASSIUM SERUM 4.7 MMOL/L (3.5-5.1); SODIUM LEVEL 139 MMOL/L (136-145); TOTAL PROTEIN 6.1 G/DL (5.7-8.2)
[2023-08-16 14:12] LABS: ERYTHROCYTE SEDIMENTATION RATE 23 mm/hr (0-20)
== END ==
LOC: M SFHCRHEU 10:47
PROVIDERS: ATTEND Internal Medicine Rheumatology
DX: M05.79 Rheumatoid arthritis with rheumatoid factor of multiple sites without organ or systems involvement (principal); D72.819 Decreased white blood cell count, unspecified; N18.2 Chronic kidney disease, stage 2 (mild); Z79.899 Other long term (current) drug therapy; Z72.0 Tobacco use